=== PATIENT | male | born 1940 | race Caucasian/White ===

== ENCOUNTER 2017-07-10 12:26 | Outpatient (RCR) | payer MEDICARE, SELFPAY | END 2017-07-10 17:00 | LOC: PT 12:26 | PROVIDERS: Family Provider Family Medicine Geriatric Medicine; PCP Family Medicine Geriatric Medicine; Visit Provider Family Medicine Geriatric Medicine | DX: R69 Illness, unspecified (principal) ==

== ENCOUNTER → 2017-07-30 09:21 | Outpatient (CLI) | payer MEDICARE, SELFPAY ==
[2017-07-30 13:13] LABS: Absolute Lymphocyte Count 2.98 X10^3/ul (0.83-4.51); Absolute Neutrophil Count 3.6 X10^3/uL (2.0-7.7); Basophil# 0.02 X10^3/uL; Basophil% 0.3 % (0-1); Eosinophil# 0.14 X10^3/uL; Eosinophils% 1.9 % (0-5); Hematocrit 43.3 % (40-54); Lymphocyte # 2.98 X10^3/ul (4.0); Lymphocyte % 40.2 % (19-41); Mean Corp Hgb Conc 32.3 g/gl (32-36); Mean Corpuscular Hgb 29.9 pg (27.0-32.0); Mean Corpuscular Volume 92.3 fL (80-94); Mean Platelet Vol. 11.4 fl (6.2-12.0); Monocyte# 0.64 X10^3/uL; Monocyte% 8.6 % (0-10); Neutrophil # 3.62 X10^3/uL (2.7-7.7); Neutrophil % 48.9 % (47-70); POSITIVE COUNT NO; POSITIVE DIFFERENTIAL NO; POSITIVE MORPHOLOGY NO; Platelet Count 271 K/mm3 (150-450); RBC Distribution Width CV 13.7 % (11.6-14.6); RBC Distribution Width SD 46.1 fl (35.1-43.9); Red Blood Count 4.69 M/mm3 (4.6-6.2); White Blood Count 7.4 K/mm3 (4.4-11.0)
[2017-07-30 13:52] LABS: ALB/GLOB Ratio 0.8 RATIO (0.9-2.4); AST(SGOT) 18 U/L (15-37); Alanine Aminotransfer ALT/SGPT 34 U/L (16-61); Albumin, Serum 3.1 g/dL (3.2-5.0); Alkaline Phosphatase 86 U/L (45-117); Anion Gap 9 (5-15); BUN 15 mg/dL (7-18); BUN/Creat Ratio 15.3 RATIO (10-20); Calcium,Total 8.7 mg/dL (8.5-10.1); Chloride 108 mmol/L (98-107); Creatinine, Serum 0.98 mg/dL (0.70-1.30); EST Glomerular Filtration Rate 78 mL/min (>60); Est Glom Filt Rate - Afr Amer 95 mL/min (>60); Globulin 3.8 g/dL (2.2-4.2); Glucose 86 mg/dL (74-106); Potassium 3.8 mmol/L (3.5-5.1); Protein, Total 6.9 g/dL (6.4-8.2); Sodium Level 142 mmol/L (136-145); Thyroid Stim Hormone (TSH) 2.11 uIU/mL (0.358-3.74)
== END ==
PROVIDERS: Family Provider Family Medicine Geriatric Medicine; PCP Family Medicine Geriatric Medicine; Visit Provider Family Medicine Geriatric Medicine
DX: R53.83 Other fatigue (principal)
CPT/HCPCS: 36415; 80053; 84443; 85025

== ENCOUNTER → 2017-08-12 07:54 | Outpatient (CLI) | payer MEDICARE, SELFPAY ==
--- NOTE | 2017-08-12 14:42 | PFTCOMP ---
COMPLETE PULMONARY FUNCTION TEST INTERPRETATION Brief HPI: Patient is a 77 year old male, currently under the care of Fior Lozada, who presents to [facility] for complete pulmonary function tests secondary to diagnosis of COPD. Respiratory therapist reports good effort and reproducible results. Interpretation: Forced expiration spirometry shows a moderately-severe large airways obstructive ventilatory defect with an FEV1 of 62 % predicted. There is a significant bronchodilator response in FEV1 and FVC by ATS criteria. Spirograms are of good quality and plateau slowly, indicating slowly emptying areas of the lungs. The respiratory flow volume loop shows decreased expiratory flow rates at all lung volumes consistent with airway obstruction. Lung volumes by body plethysmography show a normal total lung capacity at 6.13 L, 100 % predicted. All other lung volumes are within normal limits. Diffusion capacity by carbon monoxide is at the lower limit of normal at 55 % predicted. The airway resistance is elevated. Compared to previous pulmonary function tests from 07/09/2016, there has been a significant change in DLCO. FVC and FEV1 are decreased, but postbronchodilator results are consistent with previous testing. Impression: Partially reversible moderately severe large airways obstructive ventilatory defect with a symmetric reduction diffusing capacity. There has been some worsening compared to previous study.
--- NOTE | 2017-08-12 14:46 | PFTCOMP_ITS ---
COMPLETE PULMONARY FUNCTION TEST INTERPRETATION Brief HPI: Patient is a 77 year old male, currently under the care of Fior Lozada, who presents to [facility] for complete pulmonary function tests secondary to diagnosis of COPD. Respiratory therapist reports good effort and reproducible results. Interpretation: Forced expiration spirometry shows a moderately-severe large airways obstructive ventilatory defect with an FEV1 of 62 % predicted. There is a significant bronchodilator response in FEV1 and FVC by ATS criteria. Spirograms are of good quality and plateau slowly, indicating slowly emptying areas of the lungs. The respiratory flow volume loop shows decreased expiratory flow rates at all lung volumes consistent with airway obstruction. Lung volumes by body plethysmography show a normal total lung capacity at 6.13 L , 100 % predicted. All other lung volumes are within normal limits. Diffusion capacity by carbon monoxide is at the lower limit of normal at 55 % predicted. The airway resistance is elevated. Compared to previous pulmonary function tests from 07/09/2016, there has been a significant change in DLCO. FVC and FEV1 are decreased, but postbronchodilator results are consistent with previous testing. Impression: Partially reversible moderately severe large airways obstructive ventilatory defect with a symmetric reduction diffusing capacity. There has been some worsening compared to previous study.
== END ==
PROVIDERS: Family Provider Family Medicine Geriatric Medicine; PCP Family Medicine Geriatric Medicine; Visit Provider Nurse Practitioner Acute Care
DX: R06.00 Dyspnea, unspecified (principal); J44.9 Chronic obstructive pulmonary disease, unspecified
CPT/HCPCS: 94060; 94726; 94729

== ENCOUNTER → 2017-08-14 08:46 | Outpatient (CLI) | payer MEDICARE, SELFPAY ==
[2017-08-14 09:16] VITALS: PULSE 70; PULSE 72; PULSE 75; PULSE 78; PULSE 81; PULSE 83; PULSE 92; O2SAT 92; O2SAT 93; O2SAT 94; O2SAT 98
--- NOTE | 2017-08-15 07:18 | WT_ITS ---
PSN 6 Minute Walk Test - 6 Minute Walk Test 6 Minute Walk Test: 6 Minute Walk Test PSN:6-Minute Walk Test Start: 08/14/17 09: 16 Freq: Status: Active Protocol: RESP.6MINW Document 08/14/17 09:16 MISHEL (Rec: 08/14/17 09:20 MISHEL [id number]) 6 Minute Walk Test Date Performed 08/14/17 Time Performed 09:00 Height 5 ft 9 in Weight: 73.482 kg Weight in Pounds 162.[address]: Renzo Fitzpatrick Assistive device used: None Pre-test Oxygen Delivery Method Room Air Pulse Ox (%) 94 Pulse Rate (60-100 beats/min) 70 1st minute Oxygen Delivery Method Room Air Pulse Ox (%) 94 Pulse Rate (60-100 beats/min) 75 2nd minute Oxygen Delivery Method Room Air Pulse Ox (%) 93 Pulse Rate (60-100 beats/min) 78 3rd minute Oxygen Delivery Method Room Air Pulse Ox (%) 93 Pulse Rate (60-100 beats/min) 81 4th minute Oxygen Delivery Method Room Air Pulse Ox (%) 92 Pulse Rate (60-100 beats/min) 83 5th minute Oxygen Delivery Method Room Air Pulse Ox (%) 93 Pulse Rate (60-100 beats/min) 92 6th minute Oxygen Delivery Method Room Air Pulse Ox (%) 92 Pulse Rate (60-100 beats/min) 92 Dyspnea Jonh Scale (0-10) 1 Exertion Jonh Scale (6-20) 11 Post-test Oxygen Delivery Method Room Air Pulse Ox (%) 98 Pulse Rate (60-100 beats/min) 72 Full Laps Walked 20 Partial Lap, Number of Tiles Walked 0 Total Distance Walked (ft) 1180 - Interpretation Interpretation: The patient was able to ambulate 1180 feet over the course of 6 minutes on room air with no assistive devices or breaks. No significant desaturation or tachycardia was noted. These findings are consistent with a normal exercise oximetry. - Recommendations Recommendations: No supplemental oxygen is indicated at this time.
== END ==
PROVIDERS: Family Provider Family Medicine Geriatric Medicine; PCP Family Medicine Geriatric Medicine; Visit Provider Nurse Practitioner Acute Care
DX: J44.9 Chronic obstructive pulmonary disease, unspecified (principal); R06.00 Dyspnea, unspecified
CPT/HCPCS: 94618

== ENCOUNTER → 2018-02-01 09:56 | Outpatient (CLI) | payer MEDICARE, SELFPAY ==
[2018-02-01 10:40] LABS: Absolute Lymphocyte Count 2.62 X10^3/ul (0.83-4.51); Absolute Neutrophil Count 3.9 X10^3/uL (2.0-7.7); Basophil# 0.02 X10^3/uL; Basophil% 0.3 % (0-1); Eosinophil# 0.11 X10^3/uL; Eosinophils% 1.5 % (0-5); Hematocrit 44.6 % (40-54); Hemoglobin 14.8 g/dl (13.0-16.5); Lymphocyte # 2.62 X10^3/ul (4.0); Lymphocyte % 35.5 % (19-41); Mean Corp Hgb Conc 33.2 g/gl (32-36); Mean Corpuscular Hgb 30.3 pg (27.0-32.0); Mean Corpuscular Volume 91.2 fL (80-94); Mean Platelet Vol. 10.2 fl (6.2-12.0); Monocyte# 0.67 X10^3/uL; Monocyte% 9.1 % (0-10); Neutrophil # 3.94 X10^3/uL (2.7-7.7); Neutrophil % 53.5 % (47-70); Platelet Count 220 K/mm3 (150-450); RBC Distribution Width CV 13.3 % (11.6-14.6); Red Blood Count 4.89 M/mm3 (4.6-6.2); White Blood Count 7.4 K/mm3 (4.4-11.0)
[2018-02-01 10:42] LABS: POSITIVE COUNT NO; POSITIVE DIFFERENTIAL NO; POSITIVE MORPHOLOGY NO
[2018-02-01 10:55] LABS: Vitamin D,25 Hydroxy 43.7 ng/mL (29.95-100.01)
[2018-02-01 11:06] LABS: ALB/GLOB Ratio 0.9 RATIO (0.9-2.4); AST(SGOT) 25 U/L (15-37); Alanine Aminotransfer ALT/SGPT 33 U/L (16-61); Albumin, Serum 3.2 g/dL (3.2-5.0); Alkaline Phosphatase 79 U/L (45-117); Anion Gap 12 (5-15); BUN 16 mg/dL (7-18); BUN/Creat Ratio 12.6 RATIO (10-20); Calcium,Total 8.7 mg/dL (8.5-10.1); Chloride 107 mmol/L (98-107); Creatinine, Serum 1.27 mg/dL (0.70-1.30); EST Glomerular Filtration Rate 58 mL/min (>60); Est Glom Filt Rate - Afr Amer 70 mL/min (>60); Globulin 3.6 g/dL (2.2-4.2); Glucose 96 mg/dL (74-106); Potassium 4.4 mmol/L (3.5-5.1); Protein, Total 6.8 g/dL (6.4-8.2); Sodium Level 143 mmol/L (136-145)
== END ==
PROVIDERS: Family Provider Family Medicine Geriatric Medicine; PCP Family Medicine Geriatric Medicine; Visit Provider Family Medicine Geriatric Medicine
DX: R53.83 Other fatigue (principal); E55.9 Vitamin D deficiency, unspecified
CPT/HCPCS: 36415; 80053; 82306; 84443; 85025

== ENCOUNTER → 2018-05-24 07:47 | Outpatient (CLI) | payer MEDICARE, SELFPAY ==
--- NOTE | 2018-05-24 07:49 | CT_ITS ---
STUDY: CT CHEST WITH CONTRAST REASON FOR EXAM: Male, 78 years old. Lung cancer follow-up history of partial lobectomy history of previous smoking. RADIATION DOSAGE (If Supplied By Facility): CTDIvol = ( 12.95 ) mGy, DLP = ( 485.73 ) mGycm TECHNIQUE: Transaxial imaging was performed following intravenous administration of 100 ml of Isovue 300 contrast material. Multiplanar coronal and sagittal images were reformatted. Individualized dose optimization techniques were used for this CT. COMPARISON: May 25, 2017, November 03, 2016 CT scan chest FINDINGS: There is emphysematous change within the right greater than left lung with accompanying hyperinflation. There is volume loss in the left chest and postoperative or postinflammatory scarring with in the left lung base which is stable since prior study. There is a focus of scarring in the medial and lateral aspect of the left lower lobe stable since prior study. There are no visualized new focal masses or consolidation. There is no demonstrated pleural abnormality. There is mild cardiac enlargement. There are coronary calcifications. There is a 1.2 x 0.8 cm AP window lymph node stable since prior study there is a minimally thickened appearance of the esophagus. There is a small hiatal hernia. There is postoperative change in the left hilum stable since prior study. Normal enhanced pulmonary arteries. There is atherosclerotic calcification of the aortic arch with tortuosity and elongation of the aortic arch and descending thoracic aorta. There are multi-level degenerative changes of the thoracic spine. There is mild hepatic steatosis. There is a minimal heterogeneity. CT/Chest WITH Contrast IMPRESSION: Stable lungs pulmonary emphysema chronic obstructive pulmonary disease scarring in the left lung base compatible post lobectomy or partial lobectomy. Hiatal hernia mild mild thick-walled appearance of the esophagus which could be related to esophagitis. Mild cardiomegaly coronary artery calcification. Electronically Signed: Divine Brito MD at 17:16 EST Tel , Service support ,
[2018-05-24 08:15] LABS: CREATININE FINGERSTICK 1.2 mg/dL (0.70-1.30); EGFR FINGERSTICK > 60.0000 mL/min (>60)
--- OUTSIDE RECORDS SUMMARY | 2018-07-17 07:25 | XMS RPT_ITS ---
:1940 Author Organization OHIP Support Name Relationship Address Phone R Unavailable Unavailable Unavailable HILLARY, ROYAL Unavailable [address] + [place] [address] R Unavailable Unavailable Unavailable HILLARY, ROYAL Unavailable [address] + [place] [address] R Unavailable Unavailable Unavailable R Unavailable Unavailable Unavailable HILLARY, ROYAL Unavailable [address] + [place] [address] R Unavailable Unavailable Unavailable HILLARY, ROYAL Unavailable [address] + [place] [address] R Unavailable Unavailable Unavailable HILLARY, ROYAL Unavailable [address] + [place] [address] R Unavailable Unavailable Unavailable HILLARY, ROYAL Unavailable [address] + [place] [address] R Unavailable Unavailable Unavailable HILLARY, ROYAL Unavailable [address] + [place] [address] R Unavailable Unavailable Unavailable HILLARY, ROYAL Unavailable [address] + [place] [address] R Unavailable Unavailable Unavailable HILLARY, ROYAL Unavailable [address] + [place] [address] R Unavailable Unavailable Unavailable HILLARY, ROYAL Unavailable [address] + [place] [address] R Unavailable Unavailable Unavailable HILLARY, ROYAL Unavailable [address] + [place] [address] R Unavailable Unavailable Unavailable HILLARY, ROYAL Unavailable [address] + [place] [address] R Unavailable Unavailable Unavailable HILLARY, ROYAL Unavailable [address] + [place] [address] R Unavailable Unavailable Unavailable HILLARY, ROYAL Unavailable [address] + [place] [address] Care Team Providers Name Role Phone Pete, Solomon Chi Attending Unavailable Pete, Solomon Chi Primary Care Unavailable Pete, Solomon Chi Primary Care Unavailable Hansel Chavarria Attending Unavailable Pete, Solomon Chi Attending Unavailable Pete, Solomon Chi Primary Care Unavailable Pete, Solomon Chi Attending Unavailable Pete, Solomon Chi Referring Unavailable Pete, Solomon Chi Primary Care Unavailable Pete, Solomon Chi Attending Unavailable Pete, Solomon Chi Primary Care Unavailable Fior Lozada Attending Unavailable Lozada, Fior Referring Unavailable Pete, Solomon Chi Primary Care Unavailable Lozada, Fior Attending Unavailable Lozada, Fior Referring Unavailable Pete, Solomon Chi Primary Care Unavailable Kierra, Fior Attending Unavailable Pete, Solomon Chi Referring Unavailable Renzo Fitzpatrick Attending Unavailable Kierra, Fior Referring Unavailable AmariRenzo ovalles Attending Unavailable Fior Lozada Referring Unavailable Pete, Solomon Chi Attending Unavailable Pete, Solomon Chi Primary Care Unavailable AmariRenzo ovalles Attending Unavailable Pete, Solomon Chi Referring Unavailable Pete, Solomon Chi Primary Care Unavailable Hansel Chavarria Attending Unavailable Hansel Chavarria Referring Unavailable Pete, Solomon Chi Primary Care Unavailable Hansel Chavarria Attending Unavailable Pete, Solomon Chi Primary Care Unavailable Hansel Chavarria Consulting Unavailable PROBLEMS PROBLEMS DATE TYPE CONDITION / CODE ATTENDING STATUS SOURCE 05/27/2018 Unknown C34.12 - Hansel Chavarria Active [facility] neoplasm of upper Hospital lobe, left Repository bronchus or lung / C34.12(ICD-10) 08/14/2017 Unknown R06.00 - Dyspnea, Lozada, Active [place] [facility] / [facility] R06.00(ICD-10) Hospital Repository 07/30/2017 Unknown R53.83 - Other Pete, Solomon Chi Active [facility] R53.83(ICD-10) Hospital Repository 01/21/2018 Unknown R69 - Illness, Pete, Solomon Chi Active [facility] R69(ICD-10) Hospital Repository PROCEDURES PROCEDURES No Procedure Records FoundRESULTS RESULTS VENOUS DUPLEX UPPER Observed: 06/06/2018 Status: F Source: [place] [facility] 9:35 AM [facility] Cardiovascular Services [address] [place] [address] Venous Duplex US, Unilateral 06/02/18 1051 MR#: [id number] Acct: [id number] Name: ALONDRA THOMAS Rep #: [id number] : 1940 78 From: Joey Beverly MD Attending Dr: Pete HERRERA,Solomon Fowler Status: REG CLI Ordering Dr: Solomon Freeman MD Date: 06/02/18 Location: [facility] Sex: M C Admitted: Reason For Study: RUE pain Right Proximal Right jugular vein is spontaneous, widely patent, phasic, with no intraluminal echogenicity noted. Right subclavian vein is spontaneous, widely patent, phasic, with no intraluminal echogenicity noted. Right Lower Arm Right radial vein is compressible. Right ulnar vein is compressible. Right Arm Right axillary vein is spontaneous, patent, phasic, competent, compressible and demonstrates augmentation. Right brachial vein is compressible. Right cephalic vein is compressible. Right basilic vein is compressible. Interpretation Summary Deep veins of the right upper extremity are patent and compressible segmentally. There is no evidence of deep vein thrombosis. The superficial veins of the right upper extremity, the basilic and cephalic veins, are patent and compressible. There is no evidence of right upper extremity superficial thrombophlebitis involving the veins imaged. Ordering Physician: Solomon Freeman Performed By: Raisa Zelaya RVT ? 06/06/18 0935 Date Joey Beverly MD CC: Solomon Freeman MD Date Dictated: 06/02/18 1051 Date Transcribed: 06/06/18 0935 Correctional Sergeant: Signed SHOULDER MIN 2 VIEWS Observed: 06/02/2018 Status: F Source: [place] 11:04 AM [facility] REPOSITORY [facility] Imaging Services [address] [place] [address] Shoulder min 2 Views MR#: [id number] Acct: [id number] Name: ALONDRA THOMAS Rep #: [id number] : 1940 78 From: River Staples MD PCP: Solomon Freeman MD, Chi Status: REG CLI Study: Shoulder min 2 Views Date of Exam: 06/02/18 Exam# [id number] Ordering Dr: Solomon Freeman MD STUDY: X-RAY - RIGHT SHOULDER REASON FOR EXAM: Male, 78 years old. Two-week history of acute pain. TECHNIQUE: 4 view(s) of the shoulder. COMPARISON: None. FINDINGS: Normal glenohumeral articulation. There is hypertrophic osteoarthrosis of the acromioclavicular joint with inferior osseous spur formation. Normal acromion. Normal humeral head and visualized proximal humerus. The soft tissue structures are unremarkable. Normal visualized pulmonary apex. RAD/Shoulder min 2 Views IMPRESSION: Osteoarthritis of the acromioclavicular joint. Electronically Signed: River Staples MD at 12:00 EST Tel [phone], Service support , CC: Solomon Freeman MD Correctional Sergeant: Signed ONCOLOGY VISIT REPORT Observed: 05/27/2018 Status: F Source: [place] 2:03 PM [facility] REPOSITORY [facility] [address] [place] [address] OFFICE VISIT Date of Service: 05/27/18 1354 MR#: [id number] Acct: [id number] Name: ALONDRA THOMAS Rep #: [id number] : 1940 From: Hansel Chavarria MD Age/Sex: 78/M Location: [facility] Status: Signed Subjective - Date of Service Date of Service:: 05/27/18 - Chief Complaint F/u for L lung cancer. - History of Present Illness Mr. Thomas is a very pleasant 78-year-old gentleman with a past medical history for BPH and hypothyroidism, who underwent a routine low-dose CT for lung cancer screening per Dr. Freeman in March when he was found to have a spiculated left-sided lung lesion which was ultimately resected by Dr. Monterroso in [place] in April 122014. The patient was initially evaluated by Dr. Tamayo on 05/04/2015 for left-sided stage IA non-small cell lung cancer status post PRINCE resection and placed on active surveillance. CT scans every 6 months have not indicated any evidence for acute abnormalities or recurrence. He is on observation, comes for follow up after CT chest. - Past Medical/Social History Past Medical History Past Medical History: COPD,Thyroid disease Other Past Medical History: Lumbar spinal stenosis Cancer: Lung cancer Past Surgical History Surgical: Carpal tunnel,Hemorrhoidectomy Other Surgical History: L shoulder L lung upper lobectomy Family History Paternal Past Medical History: Unknown Maternal Past Medical History: Unknown Social History Social History: No changes Smoking Status Former smoker Review of Systems Constitutional:: Denies: Fever, Sweats, Weight loss, Appetite change, Chills Cardiovascular:: Denies: Chest pain, Palpitations, Dyspnea on exertion, Orthopnea, PND, Shortness of breath Respiratory: Denies: Cough, Hemoptysis, Shortness of Breath, Wheezing Gastrointestinal:: Denies: Abdominal pain, Nausea, Vomiting, Diarrhea, Constipation, Hematochezia Genitourinary: Denies: Dysuria, Hematuria, 15, Flank pain Musculoskeletal:: Denies: Back pain, Myalgia, Arthralgia Skin: Denies: Rash, Skin Changes, Wounds Neurological:: Denies: Headache, Dizziness, Visual changes, Tinnitus, Hearing loss Psychiatric: Denies: Anxiety, Depression, Homicidal Ideations, Suicidal Ideations Vital Signs Height 5 ft 8.1 in Weight: 76.657 kg Weight in Pounds 169.0 lbs Pulse Ox 95 - Physical Exam General: Alert, Oriented x3, No apparent distress HEENT: Atraumatic, PERRLA, EOMI, Normocephalic Oropharynx:: Dry mucosa Neck:: Supple, Trachea midline. Negative for: JVD, bilateral Cardiac:: Regular rate, Regular rhythm, Normal S1, Normal S2. Negative for: Murmur Lungs: Clear to auscultation, Excusion symmetrical, - - L thoracotomy scar.. Negative for: Rhonchi, Wheezes Abdomen:: Bowel sounds x 4, Soft, Non-tender, Non-distended. Negative for: Hepatosplenomegaly Extremities:: Negative for: Cyanosis, Edema Neurological: Neuro grossly intact Skin:: Negative for: Lesions, Rash, Petechiae, Ecchymosis Psychiatric:: Appropriate affect, Euthymic Lymphatics:: Negative for: Cervical lymphadenopathy, Supraclavicular lymphadenopathy, Axillary lymphadenopathy Laboratory Data: Laboratory Tests WBC 8.1 (4.4-11.0) K/mm3 RBC 4.62 (4.6-6.2) M/mm3 Hgb 14.4 (13.0-16.5) g/dl Diagnostic Data: 05/24/[address]/Chest WITH Contrast IMPRESSION: Stable lungs pulmonary emphysema chronic obstructive pulmonary disease scarring in the left lung base compatible post lobectomy or partial lobectomy. Hiatal hernia mild mild thick-walled appearance of the esophagus which could be related to esophagitis. Mild cardiomegaly coronary artery calcification. Electronically Signed: Divine Brito MD at 17:16 EST Assessment and Plan Left lung non-small cell lung cancer, adenosquamous type, stage IA. No evidence of disease clinically. Thickened lower esophageal wall. Plan is to continue observation for lung cancer. Refer to Dr. Neves for thickened lower esophageal wall. RTC [address] chest. Medications: Prescriptions This Visit Medication Instructions Recorded Multivit-Mins/Iron/Folic/Lycop 1 tab PO DAILY 09/17/16 [Centrum Men's Tablet] Tamsulosin HCl [Flomax] 0.4 mg PO DAILY 09/17/16 Primary Care Provider: Solomon Freeman Referring Provider: - Problem List (1) History of lung cancer in adulthood Status: Chronic (2) Abnormal CT of the chest Status: Acute 05/27/18 1403 <Electronically signed by Hansel Chavarria MD> Date Hansel Chavarria MD Cosigner Signature: Date (if applicable) CC: Chad Neves CBC W/DIFF, AUTOMATED Collected: 05/27/2018 Status: F Source: [place] 1:10 PM [facility] REPOSITORY Order Comment: Reason for Laboratory Test . TYPE CODE TESTS RESULT OUT OF RANGE REFERENCE UNITS LAB L100.1000 4.4-11.0 K/mm3 Normal WBC 8.1 LAB L100.1200 4.6-6.2 M/mm3 Normal RBC 4.62 LAB L100.1300 13.0-16.5 g/dl Normal HGB 14.4 LAB L100.1400 40-54 % Normal HCT 42.5 LAB L100.1500 80-94 fL Normal MCV 92.0 LAB L100.1600 27.0-32.0 pg Normal MCH 31.2 LAB L100.1700 32-36 g/gl Normal MCHC 33.9 LAB L100.1810 11.6-14.6 % Normal RDW CV 12.9 LAB L100.1820 35.1-43.9 fl Normal RDW SD 42.9 LAB L100.1900 150-450 K/mm3 Normal PLT 234 LAB L100.2000 6.2-12.0 fl Normal MPV 9.8 LAB L100.2100 47-70 % Normal NEUT% 52.3 LAB L100.2200 19-41 % Normal LY% 36.0 LAB L100.2300 0-10 % Normal MONO% 9.0 LAB L100.2400 0-5 % Normal EO% 2.1 LAB L100.2500 0-1 % Normal BASO% 0.5 LAB L100.2550 0.0-0.9 % Normal IM GRAN % 0.100 Result Comment: IG% - Immature Granulocytes (promyelocytes, myelocytes and metamyelocytes) > 1% indicates that a LEFT SHIFT is Present. LAB L100.2620 2.0-7.7 X10 3/uL Normal Absolute Neut 4.3 LAB L100.2720 0.83-4.51 X10 3/ul Normal Absolute Lymph 2.92 Performed By: #### L100.0100 #### [facility] [address], [address] COMPREHENSIVE METABOLIC Collected: 05/27/2018 Status: F Source: [place] [facility] 1:10 PM [facility] REPOSITORY Order Comment: Reason for Laboratory Test . TYPE CODE TESTS RESULT OUT OF RANGE REFERENCE UNITS LAB L501.0100 74-106 mg/dL High GLU 109 Result Comment: Fasting Glucose result from 100 to 125 mg/dL suggests IMPAIRED HOMEOSTASIS per A.D.A. criteria. Please note revised GLUCOSE reference range effective 2017. LAB L501.1000 7-18 mg/dL Normal BUN 18 LAB L501.1100 0.70-1.30 mg/dL Normal CREAT,SERUM 1.06 Result Comment: The validity of the calculated GFR AND GFRAA in patients over 70 years has not been determined. Clinical correlation is essential. LAB L501.1110 >60 mL/min Normal EST GFR 72 Result Comment: Non- GFR Calc LAB L501.1115 >60 mL/min Normal EST GFR - AA 87 Result Comment: GFR Calc LAB L501.1255 ml/min Normal Estimated CRCL 54.67 LAB L501.1300 10-20 RATIO Normal BUN/CRE 17.0 LAB L501.1500 6.4-8. g/dL Normal 2 T PROT 6.8 LAB L501.1800 3.2-5. g/dL Normal 0 ALB 3.4 LAB L501.1950 2.2-4. g/dL Normal 2 GLOB 3.4 LAB L501.2000 0.9-2. RATIO Normal 4 A/G 1.0 LAB L501.2200 8.5-10 mg/dL Normal .1 CA 8.7 LAB L501.4100 15-37 U/L Normal AST 17 LAB L501.4305 45-117 U/L Normal ALK P 84 LAB L501.4405 16-61 U/L Normal ALT 26 LAB L501.4600 0.20-1 mg/dL Normal .00 T BILI 0.40 LAB L501.5300 136-14 mmol/L Normal 5 NA 140 LAB L501.5600 3.5-5. mmol/L Normal 1 K 4.0 LAB L501.5900 98-107 mmol/L Normal CL 107 LAB L501.6100 21.0-3 mmol/L Normal 2.0 CO2 28.0 LAB L501.6200 5-15 Normal GAP 5 Performed By: #### L500.4050 #### [facility] [address] [place], [address] CREATININE FINGERSTICK Collected: 05/24/2018 Status: F Source: [place] 8:06 AM [facility] REPOSITORY TYPE CODE TESTS RESULT OUT OF RANGE REFERENCE UNITS LAB L9100.0210 0.70-1.30 mg/dL Normal CREATININE WB 1.2 LAB L9100.0220 >60 mL/min EGFR WB Normal > 60.0000 Performed By: #### L9100.0200 #### [facility] Point of Care [address] [place] [address] CHEST WITH CONTRAST Observed: 05/24/2018 Status: F Source: [place] 7:49 AM [facility] REPOSITORY [facility] Imaging Services [address] [place] [address] Chest WITH Contrast MR#: [id number] Acct: [id number] Name: ALONDRA THOMAS Rep #: [id number] : 1940 M 78 From: Divine Brito MD PCP: Pete HERRERA,[facility] Status: REG CLI Study: Chest WITH Contrast Date of Exam: 05/24/18 Exam# [id number] Ordering Dr: Hansel Chavarria MD STUDY: CT CHEST WITH CONTRAST REASON FOR EXAM: Male, 78 years old. Lung cancer follow- up history of partial lobectomy history of previous smoking. RADIATION DOSAGE (If Supplied By Facility): CTDIvol = ( 12.95 ) mGy, DLP = ( 485.73 ) mGycm TECHNIQUE: Transaxial imaging was performed following intravenous administration of 100 ml of Isovue 300 contrast material. Multiplanar coronal and sagittal images were reformatted. Individualized dose optimization techniques were used for this CT. COMPARISON: May 25, 2017, November 03, 2016 CT scan chest FINDINGS: There is emphysematous change within the right greater than left lung with accompanying hyperinflation. There is volume loss in the left chest and postoperative or postinflammatory scarring with in the left lung base which is stable since prior study. There is a focus of scarring in the medial and lateral aspect of the left lower lobe stable since prior study. There are no visualized new focal masses or consolidation. There is no demonstrated pleural abnormality. There is mild cardiac enlargement. There are coronary calcifications. There is a 1.2 x 0.8 cm AP window lymph node stable since prior study there is a minimally thickened appearance of the esophagus. There is a small hiatal hernia. There is postoperative change in the left hilum stable since prior study. Normal enhanced pulmonary arteries. There is atherosclerotic calcification of the aortic arch with tortuosity and elongation of the aortic arch and descending thoracic aorta. There are multi-level degenerative changes of the thoracic spine. There is mild hepatic steatosis. There is a minimal heterogeneity. CT/Chest WITH Contrast IMPRESSION: Stable lungs pulmonary emphysema chronic obstructive pulmonary disease scarring in the left lung base compatible post lobectomy or partial lobectomy. Hiatal hernia mild mild thick-walled appearance of the esophagus which could be related to esophagitis. Mild cardiomegaly coronary artery calcification. Electronically Signed: Dviine Brito MD at 17:16 EST Tel , Service support , CC: Hansel Chavarria MD; Solomon Freeman MD Correctional Sergeant: Signed PULMONARY VISIT REPORT Observed: 03/02/2018 Status: F Source: [place] 9:41 AM [facility] REPOSITORY [facility] [address] [place] [address] OFFICE VISIT Date of Service: 03/02/18 MR#: [id number] Acct: [id number] Name: ALONDRA THOMAS Rep #: [id number] : 1940 Provider: Renzo Fitzpatrick MD Age/Sex: 77/M [facility] [facility] Status: Signed Assessment AND Plan Problems 1. 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 2. Adenocarcinoma of left lung, stage 1 C34.92 3. History of lobectomy of lung Z90.2 Plan Patient overall appears to be relatively stable on as needed albuterol therapy. Did discuss with patient about having an annual pulmonary function test, but patient states that he feels this is been stable for several years and does not wish to complete any PFT at this time. Signs and symptoms of exacerbation and sick policy were reviewed in detail. Patient voiced understanding. Will defer to oncology on timing of screening CT scans. Continue with current therapy. Patient refusing testing. Medications New: Plan Detail Follow Up 6 Months (CSM) HPI 6 M FU: Chief Complaint: Shortness of breath on exertion Details: Patient is a 77-year-old male, currently under care of Dr. Freeman, who presents for evaluation secondary to shortness of breath on exertion. Since last visit, patient denies any ER visits, hospitalizations or prednisone burst. Patient was placed on Zantac and a nasal spray by ENT, but reports no significant change at this time. Patient overall feels he is doing well from a respiratory standpoint. Patient denies any change in cough, shortness of breath, fever, chills, nausea or vomiting. No unintentional weight loss has been reported. Patient is no longer smoking. Patient reports that he continues to follow with [facility]. Patient anticipates a repeat CT scan in April or May of this year. Patient is currently on 1 year follow-up visit. Intake Vital Signs03/02/18 Height 5 ft 9 in 03/02/18 Weight: 73.482 kg Intake Visit Reasons: [address] Technologist Required: No Accompanied by: Self Is patient in pain?: No Allergies No Known Allergies Allergy (Verified 03/02/18 06:51) Medications Levothyroxine [Synthroid] 112 mcg PO DAILY 03/01/15 [History Confirmed 03/02/18] Multivits,Ca,Min/Iron/FA/Lycop [Centrum Men's Tablet] 1 tab PO DAILY 03/29/17 [History Confirmed 03/02/18] Tamsulosin HCl [Flomax] 0.4 mg PO DAILY 09/17/16 [History Confirmed 03/02/18] albuterol sulfate HFA 90 mcg/actuation aerosol inhaler 2 puff INHALATION Q4H PRN g 08/21/17 [History Confirmed 03/02/18] ranitidine 150 mg tablet 150 mg PO BID tab 03/02/18 [History Confirmed 03/02/18] PFSH Medical History Hypothyroidism (Chronic) Lumbar back pain (Chronic) DDD (degenerative disc disease), lumbar (Chronic) Cancer of upper lobe of left lung (Chronic) Stage 2 moderate COPD by GOLD classification (Chronic) PND (post-nasal drip) (Chronic) Adenocarcinoma of lung, stage 1 (Resolved) COPD (chronic obstructive pulmonary disease) (Acute) Carpal tunnel syndrome (Acute) Lumbar spinal stenosis (Acute) Thyroid disease (Acute) left shoulder surgery (Acute) Surgical History History of lobectomy of lung (Resolved) History of shoulder surgery (Resolved) History of carpal tunnel release of both wrists (Resolved) S/P lobectomy of lung (Resolved) H/O hemorrhoidectomy (Acute) Social History Smoking Status: Former smoker second hand exposure: No alcohol intake: current alcohol intake frequency: holidays/special occasions only substance use type: does not use caffeine: No what type of physical activity do you participate in: walking frequency: daily Review of Systems Const CONSTITUTIONAL: Negative anorexia, body ache, chills, daytime sleepiness, fever(s), night sweats, oral thrush, stops breathing during sleep, weight loss, sleeping in chair, fatigue, weight loss, weight gain, frequent colds, seasonal allergies, other, orthopnea or headache(s) EETM Ear Nose Throat Mouth: Positive hearing normal and nasal discharge; negative hard of hearing, hoarseness, dry mouth in morning, change in vision, itchy eyes, eye pain, swallowing Difficulty, ear pain, nose bleed, headache(s), mouth pain, nasal congestion, post nasal drip, sinus pain, sinus pressure, sore throat or other Cardio Cardiovascular: Negative chest pain, chest pain at rest, chest pain with activity, irregular heart rhythm, edema, shortness of breath when lying down, palpitations, murmur or other Resp Respiratory: Positive as per HPI, shortness of breath shortness of breath: Positive with activity, cough cough: Positive productive color: Positive white and non-productive and inhalers; negative pain with cough, wheezing, chest congestion, chest tightness, pain on inspiration, increase use of rescue inhalers, snoring, apnea or other Gastro Gastrointestional: Negative bloody stools, change in appetite, difficulty swallowing, reflux, hematemesis, melena stool, loose stool, constipation or other Genitourinary: Negative blood in urine, nocturia, pain with urination or other Musc Musculoskeletal: Negative body pain, back pain, neck pain or other Skin/Breast Skin/Breast: Negative dry skin, itching, rash, unusual bruising, breast lump or other Neuro Neurological: Negative restless legs, confusion, weakness or other Psych Psychocological: Negative abnormal sleep pattern, anxiety, thoughts of hurting self/others, hopelessness or other Lymph Lymphatic: Negative easy bleeding, easy bruising, swollen lymph nodes or other Exam Const Constitutional: Positive conversant, cooperative, in no acute respiratory distress, healthy appearing, well developed, well nourished and good hygiene; negative wearing supplemental oxygen, appears older than stated age, frail appearing or smells of smoke Head Head: Positive normocephalic and atraumatic; negative cyanosis of lips/distal nose, frontal sinus tenderness or maxillary sinus tenderness Eyes Eye: Positive clear conjunctiva; negative nystagmus, scleral abnormality or cataract present Ears Ear: Positive hearing normal and external ears normal; negative hard of hearing Nose Nose: Positive external nose normal, septum normal and no nasal discharge; negative epistaxis or nasal polyp Mouth Mouth: Positive oral mucosae normal, no lesions and posterior oropharynx is adequate; negative post nasal drip, malodorous breath or oral thrush present Mallampati Score: II: Mallampati Score Neck Neck: Positive normal visual inspection, full ROM and trachea midline; negative lymphadenopathy or JVD Chest Wall Chest: Positive symmetric chest movement and increased A/P diameter; negative crepitus or tenderness Resp lung sounds: Positive clear to auscultation, prolonged expiratory time and diminished; negative wheezes, rhonchi, rales, use of accessory muscles, wheeze present on forced exhalation or dullness to percussion Cardio Cardiac: Positive regular rate, regular rhythm, S1 normal and S2 normal; negative murmur, rub or gallop GI GI: Positive normal to inspection and normal bowel sounds; negative distended, ascites or epigastric tenderness Genitourinary: Positive deferred Musc Musculoskeletal: Positive steady gait; negative using an assistive device for ambulation, kyphosis or scoliosis Skin Pulmonary Skin Exam: Positive intact; negative rash, lesion, ulcers, erythema or dermal atrophy Pulses Pulse: Yes radial pulses present Extremities Extremities: Yes capillary refill normal, No clubbing, No cyanosis, No edema, No stasis dermatitis Neuro Neurologic: Yes conversant, Yes no focal neuro deficits, Yes normal concentration, Yes understands questions, Yes cooperative, Yes normal cognition, Yes normal coordination Lymph Lymphatic: No lymphadenopathy Psych Appearance: Positive grossly normal Mental Status: Positive mental status grossly normal Mood: Positive congruent mood Affect: Positive normal affect Coding Level of Care Code Off vis,est,level 3 Diagnoses 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, 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0-32.0 pg Normal MCH 30.3 LAB L100.1700 32-36 g/gl Normal MCHC 33.2 LAB L100.1810 11.6-14.6 % Normal RDW CV 13.3 LAB L100.1820 35.1-43.9 fl High RDW SD 44.0 LAB L100.1900 150-450 K/mm3 Normal PLT 220 LAB L100.2000 6.2-12.0 fl Normal MPV 10.2 LAB L100.2100 47-70 % Normal NEUT% 53.5 LAB L100.2200 19-41 % Normal LY% 35.5 LAB L100.2300 0-10 % Normal MONO% 9.1 LAB L100.2400 0-5 % Normal EO% 1.5 LAB L100.2500 0-1 % Normal BASO% 0.3 LAB L100.2550 0.0-0.9 % Normal IM GRAN % 0.100 Result Comment: IG% - Immature Granulocytes (promyelocytes, myelocytes and metamyelocytes) > 1% indicates that a LEFT SHIFT is Present. LAB L100.2620 2.0-7.7 X10 3/uL Normal Absolute Neut 3.9 LAB L100.2720 0.83-4.51 X10 3/ul Normal Absolute Lymph 2.62 Performed By: #### L100.0100 #### [facility] Laboratory [facility] [place], [place], [id number] VITAMIN D,25 HYDROXY Collected: 02/01/2018 Status: F Source: [place] 9:57 AM [facility] REPOSITORY TYPE CODE TESTS RESULT OUT OF RANGE REFERENCE UNITS LAB L506.1000 29.95-100.01 ng/mL Normal Vitamin D 43.7 25-OH Result Comment: Vitamin D 25(OH) Status Range Deficiency <20 ng/mL (50nmol/L) Insuffciency 20 - 30 ng/mL (50 - 75 nmol/L) Sufficiency 30 - 100 ng/mL (75 - 250 nmol/L) Toxicity >100 ng/mL (>250 nmol/L) Performed By: #### L506.1000 #### [facility] Laboratory [address] [place], [place], [id number] COMPREHENSIVE METABOLIC Collected: 02/01/2018 Status: F Source: [place] [facility] 9:57 AM [facility] REPOSITORY TYPE CODE TESTS RESULT OUT OF RANGE REFERENCE UNITS LAB L501.0100 74-106 mg/dL Normal GLU 96 Result Comment: Please note revised GLUCOSE reference range effective 2017. LAB L501.1000 7-18 mg/dL Normal BUN 16 LAB L501.1100 0.70-1.30 mg/dL Normal CREAT,SERUM 1.27 Result Comment: The validity of the calculated GFR AND GFRAA in patients over 70 years has not been determined. Clinical correlation is essential. LAB L501.1110 >60 mL/min Low EST GFR 58 Result Comment: Non- GFR Calc LAB L501.1115 >60 mL/min Normal EST GFR - AA 70 Result Comment: GFR Calc LAB L501.1300 10-20 RATIO Normal BUN/CRE 12.6 LAB L501.1500 6.4-8.2 g/dL T Normal PROT 6.8 LAB L501.1800 3.2-5.0 g/dL Normal ALB 3.2 LAB L501.1950 2.2-4.2 g/dL Normal GLOB 3.6 LAB L501.2000 0.9-2.4 RATIO Normal A/G 0.9 LAB L501.2200 8.5-10.1 mg/dL CA Normal 8.7 LAB L501.4100 15-37 U/L Normal AST 25 LAB L501.4305 45-117 U/L Normal ALK P 79 LAB L501.4405 16-61 U/L Normal ALT 33 LAB L501.4600 0.20-1.00 mg/dL T Normal BILI 0.20 LAB L501.5300 136-145 mmol/L NA Normal 143 LAB L501.5600 3.5-5.1 mmol/L K Normal 4.4 LAB L501.5900 98-107 mmol/L CL Normal 107 LAB L501.6100 21.0-32.0 mmol/L Normal CO2 24.0 LAB L501.6200 5-15 Normal GAP 12 Performed By: #### L500.4050, L501.9520 #### [facility] Laboratory [address], [address] THYROID STIM HORMONE Collected: 02/01/2018 Status: F Source: [place] (TSH) 9:57 AM [facility] REPOSITORY TYPE CODE TESTS RESULT OUT OF RANGE REFERENCE UNITS LAB L501.9520 0.358-3.74 uIU/mL Normal TSH 2.80 Performed By: #### L500.4050, L501.9520 #### [facility] Laboratory [address] [place], [address] PULMONARY VISIT REPORT Observed: 08/21/2017 Status: F Source: [place] 4:05 PM [facility] REPOSITORY [facility] [address] [place], [place] [address] OFFICE VISIT Date of Service: 08/21/17 MR#: [id number] Acct: [id number] Name: ALONDRA THOMAS Rep #: [id number] : 1940 Provider: Fior Lozada Age/Sex: 77/M [place] [facility] [place] Status: Signed Assessment AND Plan 1. 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 No need to step up therapy at this time. Did discuss the fact that the patient does have her response to bronchodilators and may benefit from the addition of an inhaled corticosteroid at some point if his shortness of breath worsens. He does not have air-trapping or hyperinflation on his current PFTs, we will hold off on adding any inhalers at this point. Patient has been advised to contact the office if he develops any new symptoms or worsening shortness of breath. Otherwise, follow-up with Dr. Fitzpatrick in 6 months. 2. PND (post-nasal drip) R09.82 Status Chronic Plan Encourage the patient that he can purchase Flonase [id number] to control his postnasal drip. Follow-up with Dr. Fitzpatrick in 6 months. 3. 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 Last CT of the chest was done 3 months ago. He follows with [facility]. Plan Detail Follow Up 6 Months (BW) HPI 6 M FU: Chief Complaint: shortness of breath on elevation or soft surface such as grass or carpet HPI Comments Details: This is a 77 year old very pleasant m, currently under the care of Solomon Freeman, here today to review test results, and follow-up on his moderate COPD. I personally reviewed the tests/images/tracings which showed: Complete Pulmonary Function test were preformed on August 12, 2017, and showed FVC of 95 % of predicted, FEV1 of 62 % of predicted, FEV1/FVC ratio of 47 %, TLC of 100 % of predicted, RV of 98 % of predicted, DLCO 55% of predicted. The test was interpreted to be consistent with partially reversible moderately severe obstructive ventilatory defect, with a significant response to bronchodilators and a symmetric reduction in diffusing capacity. Pulmonary stress test was completed on August 14, 2017, and did not show a drop in saturation below 89%, which suggested a no current requirement of supplemental oxygen on ambulation at this time. He was able to ambulate 1180 feet during 6 minutes. He has not been seen in the ED urgent care for any breathing problems since his last office visit. He has not required antibiotics or prednisone for any respiratory infections. Per his own words he has been healthy this winter. He denies any shortness of breath at rest or during conversation, does report very minimal shortness of breath on exertion. He reports that his shortness of breath on exertion is more prevalent if he is walking on a soft surface such as grass or carpet. If he is walking on a hard surface he is able to walk for several minutes. He said he is able to complete the 6 minute walk with ease, he walks this far on most days. He does have a rescue inhaler but rarely uses it. When he uses it he did not find it very helpful. He denies any cough, wheezing or chest tightness. He denies any chest pain or palpitations. He denies any sputum production or hemoptysis. See complete review of systems. Intake Vital Signs08/21/17 Height 5 ft 9 in 08/21/17 Weight: 162 lb Intake Visit Reasons: 6 M FU Accompanied by: Self Allergies No Known Allergies Allergy (Verified 08/21/17 10:04) Medications Levothyroxine [Synthroid] 112 mcg PO DAILY 03/01/15 [History Confirmed 08/21/17] Multivits,Ca,Min/Iron/FA/Lycop [Centrum Men's Tablet] 1 tab PO DAILY 09/17/16 [History Confirmed 08/21/17] Tamsulosin HCl [Flomax] 0.4 mg PO DAILY 09/17/16 [History Confirmed 08/21/17] albuterol sulfate HFA 90 mcg/actuation aerosol inhaler 2 puff INHALATION Q4H PRN g 08/21/17 [History Confirmed 08/21/17] PFSH Medical History Hypothyroidism (Chronic) Lumbar back pain (Chronic) DDD (degenerative disc disease), lumbar (Chronic) Cancer of upper lobe of left lung (Chronic) Stage 2 moderate COPD by GOLD classification (Chronic) PND (post-nasal drip) (Chronic) Adenocarcinoma of lung, stage 1 (Resolved) COPD (chronic obstructive pulmonary disease) (Acute) Carpal tunnel syndrome (Acute) Lumbar spinal stenosis (Acute) Thyroid disease (Acute) left shoulder surgery (Acute) Surgical History History of lobectomy of lung (Resolved) History of shoulder surgery (Resolved) History of carpal tunnel release of both wrists (Resolved) S/P lobectomy of lung (Resolved) H/O hemorrhoidectomy (Acute) Social History Smoking Status: Former smoker second hand exposure: No alcohol intake: current alcohol intake frequency: holidays/special occasions only substance use type: does not use caffeine: No what type of physical activity do you participate in: walking frequency: daily Review of Systems Const CONSTITUTIONAL: Negative anorexia, body ache, chills, daytime sleepiness, fever(s), night sweats, oral thrush, stops breathing during sleep, weight loss, sleeping in chair, fatigue, weight loss, weight gain, frequent colds, seasonal allergies, other, headache(s) or orthopnea EETM Ear Nose Throat Mouth: Positive hard of hearing, itchy eyes and nasal discharge; negative hearing normal, hoarseness, dry mouth in morning, change in vision, eye pain, swallowing Difficulty, ear pain, nose bleed, headache(s), mouth pain, nasal congestion, post nasal drip, sinus pain, sinus pressure, sore throat or other Cardio Cardiovascular: Negative chest pain, chest pain at rest, chest pain with activity, irregular heart rhythm, edema, shortness of breath when lying down, palpitations, murmur or other Resp Respiratory: Positive as per HPI and shortness of breath; negative pain with cough, wheezing, chest congestion, cough, chest tightness, pain on inspiration, inhalers, increase use of rescue inhalers, snoring, apnea or other Gastro Gastrointestional: Negative bloody stools, change in appetite, difficulty swallowing, reflux, hematemesis, melena stool, loose stool, constipation or other Genitourinary: Negative blood in urine, nocturia, pain with urination or other Musc Musculoskeletal: Positive back pain; negative body pain, neck pain or other Skin/Breast Skin/Breast: Negative dry skin, itching, rash, unusual bruising, breast lump or other Neuro Neurological: Negative restless legs, confusion, weakness or other Psych Psychocological: Negative abnormal sleep pattern, anxiety, thoughts of hurting self/others, hopelessness or other Lymph Lymphatic: Negative easy bleeding, easy bruising, swollen lymph nodes or other Exam Const Constitutional: Positive conversant, cooperative, in no acute respiratory distress, healthy appearing, well developed, well nourished and good hygiene Head Head: Positive normocephalic and atraumatic; negative cyanosis of lips/distal nose Eyes Eye: Positive clear conjunctiva and nystagmus; negative scleral abnormality Ears Ear: Positive hard of hearing and external ears normal; negative hearing normal Nose Nose: Positive external nose normal and no nasal discharge; negative epistaxis Mouth Mouth: Positive oral mucosae normal, no lesions, good dentition and posterior oropharynx is adequate; negative post nasal drip, malodorous breath or oral thrush present Mallampati Score: I: Mallampati Score Neck Neck: Positive normal visual inspection, full ROM and trachea midline; negative lymphadenopathy, JVD or tender Chest Wall Chest: Positive normal inspection of the chest and symmetric chest movement; negative increased A/P diameter Resp lung sounds: Positive wheeze present on forced exhalation, clear to auscultation, good air exchange, normal expiratory time and normal respiratory effort; negative rhonchi, rales or dullness to percussion Cardio Cardiac: Positive regular rate, regular rhythm, S1 normal and S2 normal; negative murmur GI GI: Positive normal to inspection and normal bowel sounds; negative distended Genitourinary: Positive deferred Musc Musculoskeletal: Positive steady gait and ROM normal; negative kyphosis or scoliosis Skin Pulmonary Skin Exam: Positive intact; negative rash, lesion, ulcers, erythema, scaly, dermal atrophy or Eczema Pulses Pulse: Yes pulses normal x4 extremities Extremities Extremities: No edema, Yes capillary refill normal, No clubbing, No cyanosis, No stasis dermatitis Neuro Neurologic: Yes conversant, Yes no focal neuro deficits, Yes cooperative, Yes normal cognition, Yes normal coordination, Yes normal concentration, Yes understands questions, No tremor Lymph Lymphatic: No lymphadenopathy, No tenderness, No cervical adenopathy, No axillary adenopathy Psych Appearance: Positive grossly normal, eye contact and well kempt Mental Status: Positive mental status grossly normal Mood: Positive congruent mood Affect: Positive normal affect Coding Level of Care Code Off vis,est,level 4 Diagnoses 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 PND (post-nasal drip) R09.82 Cancer of upper lobe of left lung C34.12 08/21/17 1605 <Electronically signed by Fior LESLIEC> Date Fior HURST Cosigner Signature: Date (if applicable) CC: Solomon Freeman MD 6 MINUTE WALK TEST Observed: 08/15/2017 Status: F Source: [place] 7:18 AM [facility] REPOSITORY [facility] Pulmonary Services/Neurology [address] [place] [address] MR#: [id number] Acct: [id number] Name: ALONDRA THOMAS Rep #: [id number] : 1940 77 From: Renzo Fitzpatrick MD Referring Dr: Fior Lozada NP Date: Ordering Dr: Martin: Buzz Lynn Location: PSN PSN 6 Minute Walk Test - 6 Minute Walk Test 6 Minute Walk Test: 6 Minute Walk Test PSN:6-Minute Walk Test Start: 08/14/17 09:16 Freq: Status: Active Protocol: RESP.6MINW Document 08/14/17 09:16 [place] (Rec: 08/14/17 09:20 MISHEL [id number]) 6 Minute Walk Test Date Performed 08/14/17 Time Performed 09:00 Height 5 ft 9 in Weight: 73.482 kg Weight in Pounds 162.[address]: Renzo Fitzpatrick Assistive device used: None Pre-test Oxygen Delivery Method Room Air Pulse Ox (%) 94 Pulse Rate (60-100 beats/min) 70 1st minute Oxygen Delivery Method Room Air Pulse Ox (%) 94 Pulse Rate (60-100 beats/min) 75 2nd minute Oxygen Delivery Method Room Air Pulse Ox (%) 93 Pulse Rate (60-100 beats/min) 78 3rd minute Oxygen Delivery Method Room Air Pulse Ox (%) 93 Pulse Rate (60-100 beats/min) 81 4th minute Oxygen Delivery Method Room Air Pulse Ox (%) 92 Pulse Rate (60-100 beats/min) 83 5th minute Oxygen Delivery Method Room Air Pulse Ox (%) 93 Pulse Rate (60-100 beats/min) 92 6th minute Oxygen Delivery Method Room Air Pulse Ox (%) 92 Pulse Rate (60-100 beats/min) 92 Dyspnea Jonh Scale (0-10) 1 Exertion Jonh Scale (6-20) 11 Post-test Oxygen Delivery Method Room Air Pulse Ox (%) 98 Pulse Rate (60-100 beats/min) 72 Full Laps Walked 20 Partial Lap, Number of Tiles Walked 0 Total Distance Walked (ft) 1180 - Interpretation Interpretation: The patient was able to ambulate 1180 feet over the course of 6 minutes on room air with no assistive devices or breaks. No significant desaturation or tachycardia was noted. These findings are consistent with a normal exercise oximetry. - Recommendations Recommendations: No supplemental oxygen is indicated at this time. 08/15/17717 <Electronically signed by Renzo Fitzpatrick MD> Date Renzo Fitzpatrick MD CC: Date Dictated: 08/15/17716 Date Transcribed: 08/15/17716 Correctional Sergeant: Renzo Fitzpatrick Signed PULMONARY FUNCTION Observed: 08/12/2017 Status: F Source: [place] REPORT COMP 2:46 PM [facility] REPOSITORY [facility] Pulmonary Services/Neurology [address] [place] [address] MR#: [id number] Acct: [id number] Name: ALONDRA THOMAS Rep #: [id number] : 1940 77 From: Renzo Fitzpatrick MD Referring Dr: Fior Lozada NP Status: REG CLI Ordering Dr: Date: Location: [facility] Sex: M C COMPLETE PULMONARY FUNCTION TEST INTERPRETATION Brief HPI: Patient is a 77 year old male, currently under the care of Fior Lozada, who presents to [facility] for complete pulmonary function tests secondary to diagnosis of COPD. Respiratory therapist reports good effort and reproducible results. Interpretation: Forced expiration spirometry shows a moderately-severe large airways obstructive ventilatory defect with an FEV1 of 62 % predicted. There is a significant bronchodilator response in FEV1 and FVC by ATS criteria. Spirograms are of good quality and plateau slowly, indicating slowly emptying areas of the lungs. The respiratory flow volume loop shows decreased expiratory flow rates at all lung volumes consistent with airway obstruction. Lung volumes by body plethysmography show a normal total lung capacity at 6.13 L, 100 % predicted. All other lung volumes are within normal limits. Diffusion capacity by carbon monoxide is at the lower limit of normal at 55 % predicted. The airway resistance is elevated. Compared to previous pulmonary function tests from 07/09/2016, there has been a significant change in DLCO. FVC and FEV1 are decreased, but postbronchodilator results are consistent with previous testing. Impression: Partially reversible moderately severe large airways obstructive ventilatory defect with a symmetric reduction diffusing capacity. There has been some worsening compared to previous study. 08/12/17 1446 <Electronically signed by Renzo Fitzpatrick MD> Date Renzo Fitzpatrick MD CC: Renzo Fitzpatrick MD; Fior Lozada; Solomon Fremean MD Date Dictated: 08/12/171441 Date Transcribed: 08/12/171441 Correctional Sergeant: LITA Signed CBC W/DIFF, AUTOMATED Collected: 07/30/2017 Status: F Source: [place] 9:25 AM [facility] REPOSITORY TYPE CODE TESTS RESULT OUT OF RANGE REFERENCE UNITS LAB L100.1000 4.4-11.0 K/mm3 Normal WBC 7.4 LAB L100.1200 4.6-6.2 M/mm3 Normal RBC 4.69 LAB L100.1300 13.0-16.5 g/dl Normal HGB 14.0 LAB L100.1400 40-54 % Normal HCT 43.3 LAB L100.1500 80-94 fL Normal MCV 92.3 LAB L100.1600 27.0-32.0 pg Normal MCH 29.9 LAB L100.1700 32-36 g/gl Normal MCHC 32.3 LAB L100.1810 11.6-14.6 % Normal RDW CV 13.7 LAB L100.1820 35.1-43.9 fl High RDW SD 46.1 LAB L100.1900 150-450 K/mm3 Normal PLT 271 LAB L100.2000 6.2-12.0 fl Normal MPV 11.4 LAB L100.2100 47-70 % Normal NEUT% 48.9 LAB L100.2200 19-41 % Normal LY% 40.2 LAB L100.2300 0-10 % Normal MONO% 8.6 LAB L100.2400 0-5 % Normal EO% 1.9 LAB L100.2500 0-1 % Normal BASO% 0.3 LAB L100.2550 0.0-0.9 % Normal IM GRAN % 0.100 Result Comment: IG% - Immature Granulocytes (promyelocytes, myelocytes and metamyelocytes) > 1% indicates that a LEFT SHIFT is Present. LAB L100.2620 2.0-7.7 X10 3/uL Normal Absolute Neut 3.6 LAB L100.2720 0.83-4.51 X10 3/ul Normal Absolute Lymph 2.98 Performed By: #### L100.0100 #### [facility] Laboratory [address] [place], [place], [address] COMPREHENSIVE METABOLIC Collected: 07/30/2017 Status: F Source: [facility] 9:25 AM [facility] REPOSITORY TYPE CODE TESTS RESULT OUT OF RANGE REFERENCE UNITS LAB L501.0100 74-106 mg/dL Normal GLU 86 Result Comment: Please note revised GLUCOSE reference range effective 2017. LAB L501.1000 7-18 mg/dL Normal BUN 15 LAB L501.1100 0.70-1.30 mg/dL Normal CREAT,SERUM 0.98 Result Comment: The validity of the calculated GFR AND GFRAA in patients over 70 years has not been determined. Clinical correlation is essential. LAB L501.1110 >60 mL/min Normal EST GFR 78 Result Comment: Non- GFR Calc LAB L501.1115 >60 mL/min Normal EST GFR - AA 95 Result Comment: GFR Calc LAB L501.1300 10-20 RATIO Normal BUN/CRE 15.3 LAB L501.1500 6.4-8.2 g/dL T Normal PROT 6.9 LAB L501.1800 3.2-5.0 g/dL Low ALB 3.1 LAB L501.1950 2.2-4.2 g/dL Normal GLOB 3.8 LAB L501.2000 0.9-2.4 RATIO Low A/G 0.8 LAB L501.2200 8.5-10.1 mg/dL CA Normal 8.7 LAB L501.4100 15-37 U/L Normal AST 18 LAB L501.4305 45-117 U/L Normal ALK P 86 LAB L501.4405 16-61 U/L Normal ALT 34 Result Comment: Please note revised ALT reference range effective 2017. LAB L501.4600 0.20-1.00 mg/dL Normal T BILI 0.40 LAB L501.5300 136-145 mmol/L Normal NA 142 LAB L501.5600 3.5-5.1 mmol/L Normal K 3.8 LAB L501.5900 98-107 mmol/L High CL 108 LAB L501.6100 21.0-32.0 mmol/L Normal CO2 25.0 LAB L501.6200 5-15 Normal GAP 9 Performed By: #### L500.4050, L501.9520 #### [facility] Laboratory [address] [place], [address] THYROID STIM HORMONE Collected: 07/30/2017 Status: F Source: [place] (TSH) 9:25 AM [facility] REPOSITORY TYPE CODE TESTS RESULT OUT OF RANGE REFERENCE UNITS LAB L501.9520 0.358-3.74 uIU/mL Normal TSH 2.11 Performed By: #### L500.4050, L501.9520 #### [facility] Laboratory [address] [place], [address] KNEE 4 OR MORE Observed: 07/01/2017 Status: F Source: [place] VIEWS 3:38 PM [facility] Imaging Services [address] [place] [address] Knee 4 or More Views MR#: [id number] Acct: [id number] Name: ALONDRA THOMAS Rep #: [id number] : 1940 M 77 From: Zak Ewing MD PCP: Solomon Freeman MD, Chi Status: REG CLI Study: Knee 4 or More Views Date of Exam: 07/01/17 Exam# [id number] Ordering Dr: Solomon Freeman MD STUDY: X-RAY - RIGHT KNEE REASON FOR EXAM: Male, 77 years old. Pain TECHNIQUE: 4 view(s) of the knee. COMPARISON: None. FINDINGS: There is chondrocalcinosis. There is mild periarticular soft tissue calcification. Normal visualized distal femur. Normal visualized proximal tibia and fibula. Normal proximal tibiofibular articulation. RAD/Knee 4 or More Views IMPRESSION: CPPD deposition Electronically Signed: Zak Ewing MD at 22:45 EST Tel , Service support , CC: Solomon Freeman MD Correctional Sergeant: Signed ALLERGIES ALLERGIES DATE TYPE / CODE NAME / CODE REACTION SEVERITY SOURCE 05/27/2018 Drug No Known Unknown [facility] Allergy/4160 Allergies/F00 [facility] 37463(SNOMED [id number](RXNOR Repository CT) M) ENCOUNTERS ENCOUNTERS ADMIT/DISCHARGE ACCOUNT ADMITTING ENCOUNTER LOCATION SOURCE NUMBER CLASS 06/02/2018 [id number] Ambulatory [address] ing:[facility] Repository 05/27/2018 [id number] Ambulatory BMSBuilding:B [place] 2 [facility] Repository 05/27/2018 [id number] Ambulatory [place] [facility] Hospital ing:[facility] Repository 05/24/2018 [id number] Ambulatory [facility] [facility] Hospital ing:CT Repository 03/02/2018/ [id number] Ambulatory BMSBuilding:B [place] 8 4 [facility] Repository 02/01/2018 [id number] Ambulatory [place] 7 [facility] [facility]:POLAB3 Repository 08/21/2017/ [id number] Ambulatory BMSBuilding:B [place] 8 6 [facility] Repository 08/15/2017 [id number] Ambulatory BMSBuilding:W [place] 5 [facility] Repository 08/14/2017 [id number] Ambulatory [place] [facility] Hospital ing:PSN Repository 08/12/2017 [id number] Ambulatory [place] [facility] Hospital ing:PSN Repository 08/12/2017 [id number] Ambulatory BMSBuilding:W [place] 1 [facility] Repository 07/30/2017 [id number] Ambulatory [place] 5 [facility] Hospital ing:POLAB3 Repository 07/10/2017/ [id number] Ambulatory [place] 8 0 [facility] Hospital ing:PT Repository 07/01/2017 [id number] Ambulatory [place] 3 [facility] Hospital ing:RAD Repository PAYERS PAYERS ENCOUNTER GUARANTOR PAYER SUBSCRIBER SOURCE 06/02/2018 ALONDRA T Primary ALONDRA T [place] [id number] W Insurance:LENARD SIGLERDOB: [facility] [id number] Number: [place] [id number]: 330 Date:1712-15-06QX [phone] (KW) [place] [address]MD: 06/02/2018 Secondary NOT GIVENUNK [place] Insurance:SELF PAY [facility] Number: Effective Repository Date:2018-06-02 05/27/2018 ALONDRA T Primary ALONDRA T [place] [id number] W Insurance:LENARD SIGLERDOB: [facility] [id number] Northwestern Hospital Number: [place]ository [place] [id number]: (330) Date:9557-92-17Zx [phone] () [address] [address]KE: 05/27/2018 Secondary NOT GIVENUNK [place] Insurance:SELF PAY [facility] Number: Effective Repository Date:2018-05-27 05/27/2018 ALONDRA T Primary ALONDRA T [place] [id number] W Insurance:LENARD SIGLERDOB: [facility] [id number] Northwestern Hospital Number: [place]ository [place] [id number]: (330) Date:7601-07-62Ex [phone] () [address] [address]NI: 05/27/2018 Secondary NOT GIVENUNK [place] Insurance:SELF PAY [facility] Number: Effective Repository Date:2016-09-09 05/24/2018 ALONDRA T Primary ALONDRA T [place] [id number] W Insurance:LENARD SIGLERDOB: [facility] [id number] Northwestern Hospital Number: [place]ository [place] [id number]: (330) Date:4598-67-38QC [phone] (HP) [address], [place] [address]TD: 05/24/2018 Secondary NOT GIVENUNK [place] Insurance:SELF PAY [facility] Number: Effective Repository Date:2018-04-02 03/02/2018 ALONDRA T Primary ALONDRA T [place] [id number] W Insurance:LENARD SIGLERDOB: [facility] [id number] Northwestern Hospital Number: Repository [place] [id number]: (330) Date:8407-81-23HG [phone] (HP) [address], [place] [address]DL: 03/02/2018 Secondary NOT GIVENUNK [place] Insurance:SELF PAY [facility] Number: Effective Repository Date:2018-02-19 02/01/2018 ALONDRA T Primary ALONDRA T [place] [id number] W Insurance:LENARD SIGLERDOB: [facility] [id number] Northwestern Hospital Number: Repository [place] [id number]: ([phone]) Date:8693-48-87WH [phone] (HP) [address], [place] [address]CY: 02/01/2018 Secondary NOT GIVENUNK [place] Insurance:SELF PAY [facility] Number: Effective Repository Date:2018-02-01 08/21/2017 ALONDRA T Primary ALONDRA T [place] [id number] W Insurance:LENARD SIGLERDOB: [facility] [id number] Northwestern Hospital Number: Repository [place] [id number]: Date:4802-60-92US [phone] [address] -[place] (HP) [address]XJ: 08/21/2017 Secondary NOT GIVENUNK [place] Insurance:SELF PAY [facility] Number: Effective Repository Date:2017-06-01 08/15/2017 ALONDRA T Primary ALONDRA T [place] [id number] W Insurance:LENARD SIGLERDOB: [facility] [id number] Northwestern Hospital Number: Repository [place] [id number]: Date:1966-40-08En [phone] [address] -[place] (HP) [address]RF: 08/15/2017 Secondary NOT GIVENUNK [place] Insurance:SELF PAY [facility] Number: Effective Repository Date:2017-08-15 08/14/2017 Alondra T Primary Alondra Yates [place] [id number] W Insurance:LENARD SiglerDOB: [facility] [id number]'s [place] Number: [place]ository RdCar[place] [id number]: Date:2727-88-02Aj [phone] [address], [place] -[place] (HP) [address]ZE: 08/14/2017 Secondary NOT GIVENUNK [place] Insurance:SELF PAY [facility] Number: Effective Repository Date:2017-02-24 08/12/2017 Alondra T Primary Alondra Yates [place] [id number] W Insurance:LENARD SiglerDOB: [facility] [id number]'s [place] Number: [place] [id number]: Date:6537-93-04Wo [phone] [address] -[place] (HP) [address]LH: 08/12/2017 Secondary NOT GIVENUNK [place] Insurance:SELF PAY [facility] Number: Effective Repository Date:2017-02-24 08/12/2017 ALONDRA T Primary ALONDRA Yates [place] [id number] W Insurance:LENARD SIGLERDOB: [facility] [id number] Northwestern Hospital Number: Repository [place]DWOOJESSEe[place], [place] [id number]: Date:7734-72-71Xr [phone] [address], [place] -[place] (HP) [address]MO: 08/12/2017 Secondary NOT GIVENUNK [place] Insurance:SELF PAY [facility] Number: Effective Repository Date:2017-08-12 07/30/2017 Alondra T Primary Alondra Yates [place] [id number] W Insurance:LENARD SiglerDOB: [facility] [id number]'s [place] Number: [place] [address]tr[place] [id number]: Date:3255-32-29Ma [phone] [address], [place] -[place] (HP) [address]KH: 07/30/2017 Secondary NOT GIVENUNK [place] Insurance:SELF PAY [facility] Number: Effective Repository Date:2017-07-30 07/10/2017 Alondra T Primary Alondra T [place] [id number] W Insurance:LENARD SiglerDOB: [facility] [id number]'s [place] Number: [place] RdCaridad [place] [id number]: Date:4623-55-70Sz [phone] [address], [place] -[place] (HP) [address]AW: 07/10/2017 Secondary NOT GIVENUNK [place] Insurance:SELF PAY [facility] Number: Effective Repository Date:2017-07-09 07/01/2017 Alondra T Primary Alondra T [place] [id number] W Insurance:LENARD SiglerDOB: [facility] [id number]'s [place] Number: [place] RdWooj[place] [id number]: Date:0384-46-45Qc [phone] [address], [place] -[place] (HP) [address]LE: 07/01/2017 Secondary NOT GIVENUNK [place] Insurance:SELF PAY [facility] Number: Effective Repository Date:2017-07-01
== END ==
PROVIDERS: Family Provider Family Medicine Geriatric Medicine; PCP Family Medicine Geriatric Medicine; Referring Provider Internal Medicine Medical Oncology; Visit Provider Internal Medicine Medical Oncology
DX: Z01.812 Encounter for preprocedural laboratory examination (principal); C34.12 Malignant neoplasm of upper lobe, left bronchus or lung
CPT/HCPCS: 71260; Q9967

== ENCOUNTER → 2018-06-02 10:40 | Outpatient (CLI) | payer MEDICARE, SELFPAY ==
[2018-05-27 13:21] VITALS: BMI 25.6
--- NOTE | 2018-06-02 10:44 | VDUE_ITS ---
Reason For Study: RUE pain Right Proximal Right jugular vein is spontaneous, widely patent, phasic, with no intraluminal echogenicity noted. Right subclavian vein is spontaneous, widely patent, phasic, with no intraluminal echogenicity noted. Right Lower Arm Right radial vein is compressible. Right ulnar vein is compressible. Right Arm Right axillary vein is spontaneous, patent, phasic, competent, compressible and demonstrates augmentation. Right brachial vein is compressible. Right cephalic vein is compressible. Right basilic vein is compressible. Interpretation Summary Deep veins of the right upper extremity are patent and compressible segmentally. There is no evidence of deep vein thrombosis. The superficial veins of the right upper extremity, the basilic and cephalic veins, are patent and compressible. There is no evidence of right upper extremity superficial thrombophlebitis involving the veins imaged. Ordering Physician: Solomon Freeman Performed By: Raisa Zelaya RVT ?
--- NOTE | 2018-06-02 11:10 | RAD_ITS ---
STUDY: X-RAY - RIGHT SHOULDER REASON FOR EXAM: Male, 78 years old. Two-week history of acute pain. TECHNIQUE: 4 view(s) of the shoulder. COMPARISON: None. FINDINGS: Normal glenohumeral articulation. There is hypertrophic osteoarthrosis of the acromioclavicular joint with inferior osseous spur formation. Normal acromion. Normal humeral head and visualized proximal humerus. The soft tissue structures are unremarkable. Normal visualized pulmonary apex. RAD/Shoulder min 2 Views IMPRESSION: Osteoarthritis of the acromioclavicular joint. Electronically Signed: River Staples MD at 12:00 EST Tel [phone], Service support ,
--- OUTSIDE RECORDS SUMMARY | 2018-07-19 12:41 | XMS RPT_ITS ---
:1940 Author Organization OHIP Support Name Relationship Address Phone R Unavailable Unavailable Unavailable HILLARY, ROYAL Unavailable [address] + [place] [address] R Unavailable Unavailable Unavailable HILLARY, ROYAL Unavailable [address] + [place] [address] R Unavailable Unavailable Unavailable HILLARY, ROYAL Unavailable [address] [place] [address] RD + [place] [address] R Unavailable Unavailable Unavailable R Unavailable Unavailable Unavailable HILLARY, ROYAL Unavailable [address] + [place] [address] R Unavailable Unavailable Unavailable HILLARY, ROYAL Unavailable [address] + [place] [address] R Unavailable Unavailable Unavailable HILLARY, ROYAL Unavailable [address] + [place] [address] R Unavailable Unavailable Unavailable HILLARY, ROYAL Unavailable [address] + [place] [address] R Unavailable Unavailable Unavailable HILLARY, ROYAL Unavailable [address] + [place] [address] R Unavailable Unavailable Unavailable HILLARY, ROYAL Unavailable [address] [place] [address] RD + [place] [address] R Unavailable Unavailable Unavailable HILLARY, ROYAL Unavailable [address] + [place] [address] R Unavailable Unavailable Unavailable HILLARY, ROYAL Unavailable [address] + [place] [address] R Unavailable Unavailable Unavailable HILLARY, ROYAL Unavailable [address] + [place] [address] R Unavailable Unavailable Unavailable ROYAL THOMAS Unavailable [address] [facility] + [place] [address] Care Team Providers Name Role Phone Pete, Solomon Chi Attending Unavailable Pete, Solomon Chi Primary Care Unavailable Jabour, Margient Attending Unavailable Jabour, Vincent Referring Unavailable Pete, Solomon Chi Primary Care Unavailable Pete, Solomon Chi Primary Care Unavailable Prah, Hansel Attending Unavailable Pete, Solomon Chi Attending Unavailable Pete, Solomon Chi Primary Care Unavailable Lozada, Fior Attending Unavailable Lozada, Fior Referring Unavailable Pete, Solomon Chi Primary Care Unavailable Lozada, Fior Attending Unavailable Lozada, Fior Referring Unavailable Pete, Solomon Chi Primary Care Unavailable Lozada, Fior Attending Unavailable Pete, Solomon Chi Referring Unavailable Amari, Renzo Attending Unavailable Lozada, Fior Referring Unavailable Amari, Renzo Attending Unavailable Lozada, Fior Referring Unavailable Pete, Solomon Chi Attending Unavailable Pete, Solomon Chi Primary Care Unavailable Amari, Renzo Attending Unavailable Pete, Solomon Chi Referring Unavailable Pete, Solomon Chi Primary Care Unavailable Pracat, Hansel Attending Unavailable PraHansel shelton Referring Unavailable Pete, Solomon Chi Primary Care Unavailable Pracat, Hansel Attending Unavailable Pete, Solomon Chi Primary Care Unavailable Deon, Hansel Consulting Unavailable PROBLEMS PROBLEMS DATE TYPE CONDITION / CODE ATTENDING STATUS SOURCE 05/27/2018 Unknown C34.12 - Hansel Chavarria Active [facility] neoplasm of upper Hospital lobe, left Repository bronchus or lung / C34.12(ICD-10) 08/14/2017 Unknown R06.00 - Dyspnea, Lozada, Active [facility] R06.00(ICD-10) Hospital Repository 07/30/2017 Unknown R53.83 - Other Pete, Solomon Chi Active [facility] R53.83(ICD-10) Hospital Repository PROCEDURES PROCEDURES No Procedure Records FoundRESULTS RESULTS ESOPHAGUS ONLY Observed: 07/07/2018 Status: F Source: [place] 8:21 AM [facility] REPOSITORY [facility] Imaging Services [address] [place] [address] Esophagus Only MR#: [id number] Acct: [id number] Name: ALONDRA THOMAS Rep #: [id number] : 1940 M 78 From: River Staples MD PCP: Solomon Freeman MD, Chi Status: REG CLI Study: Esophagus Only Date of Exam: 07/07/18 Exam# [id number] Ordering Dr: Chad Neves MD STUDY: X-RAY - ESOPHAGUS (BARIUM SWALLOW) WITH FLUOROSCOPY REASON FOR EXAM: Male, 78 years old. Dysphagia for solids. TECHNIQUE: 15 view(s) of the esophagus were obtained following swallowing of barium. FLUOROSCOPY TIME (if supplied): (0:30) minutes/seconds COMPARISON: None. FINDINGS: There is no demonstrated esophageal foreign body. There is no demonstrated stricture or mucosal abnormality. Normal gastroesophageal junction, without a demonstrated hiatal hernia. The patient ingested a 12 mm tablet of barium without any difficulty. There is atherosclerotic calcification of the aortic arch with tortuosity of the descending aorta. Normal visualized pulmonary parenchyma. Normal visualized osseous structures of the thorax. RAD/Esophagus Only IMPRESSION: Normal plain film x-ray examination (barium swallow) of the esophagus. Electronically Signed: River Staples MD at 14:40 EST Tel [phone], Service support , CC: Solomon Freeman MD; Chad Neves [employer] Roaster Helper: Signed VENOUS DUPLEX UPPER Observed: 06/06/2018 Status: F Source: [place] EXTREMITY 9:[address] [facility] REPOSITORY [facility] Cardiovascular Services [address] [place] [address] Venous Duplex US, Unilateral 06/02/18 1051 MR#: [id number] Acct: [id number] Name: ALONDRA THOMAS Rep #: [id number] : 1940 78 From: Joey Beverly MD [...] MD Date Dictated: 06/02/18 1051 Date Transcribed: 06/06/18934 [employer] Helper: Signed SHOULDER MIN 2 VIEWS Observed: 06/02/2018 Status: F Source: [place] 11:[address] [facility] REPOSITORY [facility] Imaging Services [address] [place] [address] Shoulder min 2 Views MR#: [id number] Acct: [id number] Name: ALONDRA THOMAS Rep #: [id number] : 1940 M 78 From: River Staples MD PCP: Solomon Freeman MD, Chi Status: REG CLI Study: Shoulder min 2 Views Date of Exam: 06/02/18 Exam# [id number] Ordering Dr: Solomon Freeman MD STUDY: X-RAY [...] River Staples MD at 12:00 EST Tel [phone], Service support , CC: Solomon Freeman MD Coc[employer] Roaster Helper: Signed ONCOLOGY VISIT REPORT Observed: 05/27/2018 Status: F Source: [place] 2:[address] [facility] REPOSITORY [facility] Medical Oncology [address] [place] [address] OFFICE VISIT Date of Service: 05/27/18 1354 MR#: [id number] Acct: [id number] Name: ALONDRA THOMAS Rep #: [id number] : 1940 From: Hansel Chavarria MD Age/Sex: 78/M Location: [facility] Status: Signed Subjective - Date of Service [...] was ultimately resected by Dr. Monterroso in [place] in April 122014. The patient was initially [...] 05/27/2018 Status: F Source: [place] 1:[address] [facility] REPOSITORY Order Comment: Reason for Laboratory Test [...] Lymph 2.92 Performed By: #### L100.0100 #### [facility] [address] [place], [address] COMPREHENSIVE METABOLIC Collected: 05/27/2018 Status: F Source: [place] [facility] 1:[address] [facility] REPOSITORY Order Comment: Reason for Laboratory Test [...] GAP 5 Performed By: #### L500.4050 #### [facility] [address] [place], [place], [address] CREATININE FINGERSTICK Collected: 05/24/2018 Status: F Source: [place] 8:[address] [facility] REPOSITORY TYPE CODE TESTS RESULT OUT OF RANGE REFERENCE UNITS LAB L9100.0210 0.70-1.30 mg/dL Normal CREATININE WB 1.2 LAB L9100.0220 >60 mL/min EGFR WB Normal > 60.0000 Performed By: #### L9100.0200 #### [facility] Point of Care [address] [place] [address] CHEST WITH CONTRAST Observed: 05/24/2018 Status: F Source: [place] 7:[address] [facility] REPOSITORY [facility] Imaging Services [address] [place] [address] Chest WITH Contrast MR#: [id number] Acct: [id number] Name: ALONDRA THOMAS Rep #: [id number] : 1940 M 78 From: Divine Brito MD PCP: Solomon Freeman MD, Chi Status: REG CLI Study: Chest WITH Contrast Date of Exam: 05/24/18 Exam# [id number] Ordering Dr: Hansel Chavarria MD STUDY: CT [...] Signed: Divine Brito MD at 17:16 EST Tel , Service support , CC: Hansel Chavarria MD; Solomon Freeman MD Coc[employer] Bean Roaster Helper: Signed PULMONARY VISIT REPORT Observed: 03/02/2018 Status: F Source: [place] 9:[address] [facility] REPOSITORY Pulmonary Medicine [address] [place] [address] OFFICE VISIT Date of Service: 03/02/18 MR#: [id number] Acct: [id number] Name: ALONDRA THOMAS Rep #: [id number] : 1940 Provider: Renzo Fitzpatrick MD Age/Sex: 77/M Location: [facility].PM[facility] Status: Signed Assessment AND Plan Problems 1. [...] New: Plan Detail Follow Up 6 Months ([facility]) HPI 6 M FU: Chief Complaint: Shortness [...] reports that he continues to follow with [facility]. Patient anticipates a repeat CT scan in April or May of this year. Patient is currently on 1 year follow-up visit. 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 REPOSITORY TYPE CODE TESTS RESULT OUT OF [...] Lymph 2.62 Performed By: #### L100.0100 #### [facility] [address] [facility] [place], [address] VITAMIN D,25 HYDROXY Collected: 02/01/2018 Status: F Source: [place] 9:[address] [facility] REPOSITORY TYPE CODE TESTS RESULT OUT OF RANGE REFERENCE UNITS LAB L506.1000 29.95-100.01 ng/mL Normal Vitamin D 43.7 25-OH Result Comment: Vitamin D 25(OH) Status Range Deficiency <20 ng/mL (50nmol/L) Insuffciency 20 - 30 ng/mL (50 - 75 nmol/L) Sufficiency 30 - 100 ng/mL (75 - 250 nmol/L) Toxicity >100 ng/mL (>250 nmol/L) Performed By: #### L506.1000 #### [facility] [address] [facility] [place], [address] COMPREHENSIVE METABOLIC Collected: 02/01/2018 Status: F Source: [facility] 9:[address] [facility] REPOSITORY TYPE CODE TESTS RESULT OUT OF [...] 12 Performed By: #### L500.4050, L501.9520 #### [facility] [address] [facility] [place], [address] THYROID STIM HORMONE Collected: 02/01/2018 Status: F Source: [place] (TSH) 9:[address] [facility] REPOSITORY TYPE CODE TESTS RESULT OUT OF RANGE REFERENCE UNITS LAB L501.9520 0.358-3.74 uIU/mL Normal TSH 2.80 Performed By: #### L500.4050, L501.9520 #### [facility] [address] [facility] [address] [address] [place], [place], [address] PULMONARY VISIT REPORT Observed: 08/21/2017 Status: F Source: [place] 4:[address] [facility] REPOSITORY Pulmonary Medicine of [address] [place] [address] OFFICE VISIT Date of Service: 08/21/17 MR#: [id number] Acct: [id number] Name: ALONDRA THMOAS Rep #: [id number] : 1940 Provider: Fior Lozada Age/Sex: 77/M Location: [facility].W Status: Signed Assessment AND Plan 1. Stage [...] the patient that he can purchase Flonase gevv-wma-jbaxeqd to control his postnasal drip. Follow-up with Dr. Fitzpatrick in 6 months. 3. 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 Last CT of the chest was done 3 months ago. He follows with [facility]. Plan Detail Follow Up 6 Months ([facility]) HPI 6 M FU: Chief Complaint: shortness [...] C34.12 08/21/17 1605 <Electronically signed by Fior Lozada [employer]-C> Date Firo HURST Cosigner Signature: Date (if applicable) CC: Solomon Freeman MD 6 MINUTE WALK TEST Observed: 08/15/2017 Status: F Source: [place] 7:[address] [facility] REPOSITORY [facility] Pulmonary Services/Neurology [address] [place] [address] [place] [address] MR#: [id number] Acct: [id number] Name: ALONDRA THOMAS Rep #: [id number] : 1940 77 From: Renzo Fitzpatrick MD Referring Dr: Fior Lozada NP Date: Ordering Dr: Martin: Buzz Lynn Location: PSN PSN 6 Minute Walk Test - 6 Minute Walk Test 6 Minute Walk Test: 6 Minute Walk Test PSN:6-Minute Walk Test Start: 08/14/17 09:16 Freq: Status: Active Protocol: RESP.6MINW Document 08/14/17 09:16 MISHEL (Rec: 08/14/17 09:20 SFENTON [id number]) 6 Minute Walk Test Date Performed 08/14/17 [...] CC: Date Dictated: 08/15/17716 Date Transcribed: 08/15/17716 [employer] Ro[employer] Helper: Renzo Fitzpatrick Signed PULMONARY FUNCTION Observed: 08/12/2017 Status: F Source: [place] REPORT COMP 2:[address] [facility] REPOSITORY [facility] Pulmonary Services/Neurology [address] [place] [address] MR#: [id number] Acct: [id number] Name: ALONDRA THOMAS Rep #: [id number] : 1940 77 From: Renzo Fitzpatrick MD Referring Dr: Fior Lozada [employer] Status: REG CLI Ordering Dr: Date: Location: PSN Sex: M C COMPLETE PULMONARY FUNCTION TEST INTERPRETATION Brief HPI: Patient is a 77 year old male, currently under the care of Fior Lozada, who presents to [facility] for complete pulmonary function tests secondary to [...] been some worsening compared to previous study. 08/12/176 <Electronically signed by Renzo Fitzpatrick MD> Date Renzo Fitzpatrick MD CC: Renzo Fitzpatrick MD; Fior Lozada; Solomon Freeman MD Date Dictated: 08/12/171441 Date Transcribed: 08/12/171441 [employer] Helper: LITA Signed CBC W/DIFF, AUTOMATED Collected: 07/30/2017 Status: F Source: [place] 9:[address] [facility] REPOSITORY TYPE CODE TESTS RESULT OUT OF [...] Lymph 2.98 Performed By: #### L100.0100 #### [facility] [address] [place], [address] COMPREHENSIVE METABOLIC Collected: 07/30/2017 Status: F Source: [facility] 9:[address] [facility] REPOSITORY TYPE CODE TESTS RESULT OUT OF [...] 9 Performed By: #### L500.4050, L501.9520 #### [facility] [address] [place], [place], [address] THYROID STIM HORMONE Collected: 07/30/2017 Status: F Source: [place] (TSH) 9:[address] [facility] REPOSITORY TYPE CODE TESTS RESULT OUT OF RANGE REFERENCE UNITS LAB L501.9520 0.358-3.74 uIU/mL Normal TSH 2.11 Performed By: #### L500.4050, L501.9520 #### [facility] [address] [facility] [place], [address] ALLERGIES ALLERGIES DATE TYPE / CODE NAME / CODE REACTION SEVERITY SOURCE 05/27/2018 Drug No Known Unknown [facility] Allergy/4160 Allergies/F00 [facility] 02177(SNOMED 5725504(RXNOR Repository CT) M) ENCOUNTERS ENCOUNTERS ADMIT/DISCHARGE ACCOUNT ADMITTING ENCOUNTER LOCATION SOURCE NUMBER CLASS 07/07/2018 [id number] Ambulatory [place] [facility] 1 [facility] ing:RAD Repository 06/02/2018 [id number] Ambulatory [place] 3 [facility] ing:[facility] Repository 05/27/2018 [id number] Ambulatory BMSBuilding:B [place] 2 [place].CF.WMO [facility] Hospital Repository 05/27/2018 [id number] Ambulatory [place] 0 [facility] Hospital ing:OMD Repository 05/24/2018 [id number] Ambulatory [place] 8 [facility] Hospital ing:CT Repository 03/02/2018/ [id number] Ambulatory BMSBuilding:B [place] 8 4 [facility] Hospital Repository 02/01/2018 [id number] Ambulatory [place] 7 [facility] Hospital ing:POLAB3 Repository 08/21/2017/ [id number] Ambulatory BMSBuilding:B [place] 8 6 MS.W [facility] Hospital Repository 08/15/2017 [id number] Ambulatory BMSBuilding:W [place] 5 [facility] Repository 08/14/2017 [id number] Ambulatory [place] 2 [facility] Hospital ing:PSN Repository 08/12/2017 [id number] Ambulatory [place] 9 [facility] Hospital ing:PSN Repository 08/12/2017 [id number] Ambulatory BMSBuilding:W [place] 1 [facility] Repository 07/30/2017 [id number] Ambulatory [place] 5 [facility] Hospital ing:POLAB3 Repository PAYERS PAYERS ENCOUNTER GUARANTOR PAYER SUBSCRIBER SOURCE 07/07/2018 ALONDRA T Primary ALONDRA T [place] [id number] W Insurance:LENARD SIGLERDOB: [facility] 4704-74-43FBKEssentia Health Number: [place] [id number]: 330) Date:8670-56-39SL [phone] (ZS) [place] [address]HH: 07/07/2018 Secondary NOT GIVENUNK [facility] Insurance:SELF PAY [facility] Number: Effective Repository Date:2018-06-30 06/02/2018 ALONDRA T Primary ALONDRA T [place] [id number] W Insurance:LENARD SIGLERDOB: [facility] [id number] Health Number: Repository flakito SUN [id number]: ([phone]) Date:7290-47-33[phone] (HP) [address], [place] [address]RG: 06/02/2018 Secondary NOT GIVENUNK [place] Insurance:SELF PAY [facility] Number: Effective Repository Date:2018-06-02 05/27/2018 ALONDRA T Primary ALONDRA T [place] [id number] W Insurance:LENARD SIGLERDOB: [facility] 5411-28-15NWREssentia Health Number: Repository [place] [id number]: (330) Date:7965-53-25Rg [phone] (HP) [address] [address]VT: 05/27/2018 Secondary NOT GIVENUNK [place] Insurance:SELF PAY [facility] Number: Effective Repository Date:2018-05-27 05/27/2018 ALONDRA T Primary ALONDRA T [place] [id number] W Insurance:LENARD SIGLERDOB: [facility] [id number] Health Number: Repository [place] [id number]: (330) Date:3138-59-63Dk [phone] (HP) [address] [address]MC: 05/27/2018 Secondary NOT GIVENUNK [place] Insurance:SELF PAY [facility] Number: Effective Repository Date:2016-09-09 05/24/2018 ALONDRA T Primary ALONDRA T [place] [id number] W Insurance:LENARD SIGLERDOB: [facility] 3193-10-33FTMEssentia Health Number: Repository [place] [id number]: (330) Date:3873-61-14YR [phone] (HP) [address], [place] [address]YF: 05/24/2018 Secondary NOT GIVENUNK [place] Insurance:SELF PAY [facility] Number: Effective Repository Date:2018-04-02 03/02/2018 ALONDRA T Primary ALONDRA T [place] [id number] W Insurance:LENARD SIGLERDOB: [facility] 7794-82-23WTYEssentia Health Number: Repository [place] [id number]: (330) Date:3924-00-46YY [phone] (HP) [address], [place] [address]QG: 03/02/2018 Secondary NOT GIVENUNK [place] Insurance:SELF PAY [facility] Number: Effective Repository Date:2018-02-19 02/01/2018 ALONDRA T Primary ALONDRA [place] [id number] W Insurance:LENARD SIGLERDOB: [facility] 1818-28-17QGLEssentia Health Number: Repository [place] [id number]: (440) Date:6915-11-52BP [phone] (HP) [address], [place] [address]TG: 02/01/2018 Secondary NOT GIVENUNK [place] Insurance:SELF PAY [facility] Number: Effective Repository Date:2018-02-01 08/21/2017 ALONDRA T Primary ALONDRA T [place] [id number] W Insurance:LENARD SIGLERDOB: [facility] 7148-30-01WVOEssentia Health Number: Repository RDWJENNA [place] [id number]: Date:6585-92-18[phone] [place], [place] -[place] () [address]GW: 08/21/2017 Secondary NOT GIVENUNK [place] Insurance:SELF PAY [facility] Number: Effective Repository Date:2017-06-01 08/15/2017 ALONDRA T Primary ALONDRA T [place] [id number] W Insurance:LENARD SIGLERDOB: [facility] 6612-46-71DVMEssentia Health Number: Repository flakito SUN [id number]: Date:1163-98-13Jj [phone] [place], [place] -[place] (HP) [address]LB: 08/15/2017 Secondary NOT GIVENUNK [place] Insurance:SELF PAY [facility] Number: Effective Repository Date:2017-08-15 08/14/2017 Alondra T Primary Alondra T [place] [id number] W Insurance:LENARD SiglerDOB: [facility] 4686-55-10LLZRiver[facility] Edge Hospital Number: Repository [place] [id number]: Date:9098-67-84Ag [phone] [address], [place] -[place] () [address]EM: 08/14/2017 Secondary NOT GIVENUNK [place] Insurance:SELF PAY [facility] Number: Effective Repository Date:2017-02-24 08/12/2017 Alondra T Primary Alondra T [place] [id number] W Insurance:LENARD SiglerDOB: [facility] 8694-72-79KRQRiver's Edge Hospital Number: Repository [place] [id number]: Date:2952-17-25Qn [phone] [place], [place] -3 (HP) [address]OQ: 08/12/2017 Secondary NOT GIVENUNK [place] Insurance:SELF PAY [facility] Number: Effective Repository Date:2017-02-24 08/12/2017 ALONDRA T Primary ALONDRA T [place] [id number] W Insurance:LENARD SIGLERDOB: [facility] 6746-40-22ULZEssentia Health Number: Repository [place] [id number]: Date:3233-76-48Sl [phone] [place], [place] -[place] () [address]HD: 08/12/2017 Secondary NOT GIVENUNK [place] Insurance:SELF PAY [facility] Number: Effective Repository Date:2017-08-12 07/30/2017 Alondra Yates Primary Alondra Mclean [id number] W Insurance:LENARD SiglerDOB: [facility] 7933-53-08TGPRiver's Edge Hospital Number: [place]ository [place] [id number]: Date:4074-21-67Jj [phone] [place], [place] -[place] () [address]OC: 07/30/2017 Secondary NOT GIVENUNK [place] Insurance:SELF PAY [facility] Number: Effective Repository Date:2017-07-30
== END ==
PROVIDERS: Family Provider Family Medicine Geriatric Medicine; PCP Family Medicine Geriatric Medicine; Visit Provider Family Medicine Geriatric Medicine
DX: R60.0 Localized edema (principal)
CPT/HCPCS: 73030; 93971

== ENCOUNTER → 2018-07-07 08:15 | Outpatient (CLI) | payer MEDICARE, SELFPAY ==
[2018-05-27 13:21] VITALS: BMI 25.6
--- NOTE | 2018-07-07 08:30 | RAD_ITS ---
STUDY: X-RAY - ESOPHAGUS (BARIUM SWALLOW) WITH FLUOROSCOPY REASON FOR EXAM: Male, 78 years old. Dysphagia for solids. TECHNIQUE: 15 view(s) of the esophagus were obtained following swallowing of barium. FLUOROSCOPY TIME (if supplied): (0:30) minutes/seconds COMPARISON: None. FINDINGS: There is no demonstrated esophageal foreign body. There is no demonstrated stricture or mucosal abnormality. Normal gastroesophageal junction, without a demonstrated hiatal hernia. The patient ingested a 12 mm tablet of barium without any difficulty. There is atherosclerotic calcification of the aortic arch with tortuosity of the descending aorta. Normal visualized pulmonary parenchyma. Normal visualized osseous structures of the thorax. RAD/Esophagus Only IMPRESSION: Normal plain film x-ray examination (barium swallow) of the esophagus. Electronically Signed: River Staples MD at 14:40 EST Tel [phone], Service support ,
--- OUTSIDE RECORDS SUMMARY | 2018-09-10 23:04 | XMS RPT_ITS ---
:1940 Author Organization OHIP Support Name Relationship Address Phone R Unavailable Unavailable Unavailable HILLARY, ROYAL Unavailable [address] + [place] [address] R Unavailable Unavailable Unavailable HILLARY, ROYAL Unavailable [address] + [place] [address] R Unavailable Unavailable Unavailable HILLARY, ROYAL Unavailable [address] [place] [address] RD + [place] [address] R Unavailable Unavailable Unavailable R Unavailable Unavailable Unavailable HILLARY, ROYAL Unavailable [address] + [place] [address] R Unavailable Unavailable Unavailable HILLARY, ROYAL Unavailable [address] + [place] [address] R Unavailable Unavailable Unavailable HILLARY, ROYAL Unavailable [address] + [place] [address] R Unavailable Unavailable Unavailable HILLARY, ROYAL Unavailable [address] + [place] [address] R Unavailable Unavailable Unavailable HILLARY, ROYAL Unavailable [address] + [place] [address] R Unavailable Unavailable Unavailable HILLARY, ROYAL Unavailable [address] [place] [address] RD + [place] [address] R Unavailable Unavailable Unavailable HILLARY, ROYAL Unavailable [address] + [place] [address] R Unavailable Unavailable Unavailable HILLARY, ROYAL Unavailable [address] + [place] [address] R Unavailable Unavailable Unavailable HILLARY, ROYAL Unavailable [address] + [place] [address] R Unavailable Unavailable Unavailable ROYAL THOMAS Unavailable [address] [facility] + [place] [address] Care Team Providers Name Role Phone Pete, [...] 05/27/2018 Unknown C34.12 - Hansel Chavarria Active [facility] neoplasm of upper Hospital lobe, left Repository bronchus or lung / C34.12(ICD-10) 08/14/2017 Unknown R06.00 - Dyspnea, Lozada, Active [facility] R06.00(ICD-10) Hospital Repository 07/30/2017 Unknown R53.83 - Other Pete, Solomon Chi Active [facility] fatigue / [facility] R53.83(ICD-10) Hospital Repository PROCEDURES PROCEDURES No Procedure Records FoundRESULTS RESULTS ESOPHAGUS ONLY Observed: 07/07/2018 Status: F Source: [place] 8:21 AM [facility] REPOSITORY [facility] Imaging Services [address] [place] [address] Esophagus Only MR#: [id number] Acct: [id number] Name: ALONDRA THOMAS Rep #: [id number] : 1940 M 78 From: River Staples MD PCP: Solomon Freeman MD, Chi Status: REG CLI Study: Esophagus Only Date of Exam: 07/07/18 Exam# [id number] Ordering Dr: Chad Neves MD STUDY: X-RAY [...] River Staples MD at 14:40 EST Tel [phone], Service support , CC: Solomon Freeman MD; Chad Neves Entry Engineer: Signed VENOUS DUPLEX UPPER Observed: 06/06/2018 Status: F Source: [place] EXTREMITY 9:35 AM [facility] REPOSITORY [facility] Cardiovascular Services [address] [place] [address] Venous Duplex US, Unilateral 06/02/18 1051 MR#: [id number] Acct: [id number] Name: ALONDRA THOMAS Rep #: [id number] : 1940 78 From: Joey Beverly MD [...] Date Dictated: 06/02/18 1051 Date Transcribed: 06/06/18934 Entry Engineer: Signed SHOULDER MIN 2 VIEWS Observed: 06/02/2018 Status: F Source: [place] 11:04 AM [facility] REPOSITORY [facility] Imaging Services [address] [place] [address] Shoulder min 2 Views MR#: [id number] Acct: [id number] Name: ALONDRA THOMAS Rep #: [id number] : 1940 M 78 From: River Staples MD PCP: Solomon Freeman MD, Chi Status: REG CLI Study: Shoulder min 2 Views Date of Exam: 06/02/18 Exam# [id number] Ordering Dr: Solomon Freeman MD STUDY: X-RAY [...] River Staples MD at 12:00 EST Tel [phone], Service support , CC: Solomon Freeman MD Entry Engineer: Signed ONCOLOGY VISIT REPORT Observed: 05/27/2018 Status: F Source: [place] 2:03 PM [facility] REPOSITORY [facility] [address] [place] [address] OFFICE VISIT Date of Service: 05/27/18 1354 MR#: [id number] Acct: [id number] Name: ALONDRA THOMAS Rep #: [id number] : 1940 From: Hansel Chavarria MD Age/Sex: [...] was ultimately resected by Dr. Monterroso in [place] in April 122014. The patient was initially [...] 05/27/2018 Status: F Source: [place] 1:10 PM [facility] REPOSITORY Order Comment: Reason for Laboratory Test [...] Lymph 2.92 Performed By: #### L100.0100 #### [facility] [address] [place], [address] COMPREHENSIVE METABOLIC Collected: 05/27/2018 Status: F Source: [place] [facility] 1:10 PM [facility] REPOSITORY Order Comment: Reason for Laboratory Test [...] GAP 5 Performed By: #### L500.4050 #### [facility] [address] [place], [place], [address] CREATININE FINGERSTICK Collected: 05/24/2018 Status: F Source: [place] 8:06 AM [facility] REPOSITORY TYPE CODE TESTS RESULT OUT OF RANGE REFERENCE UNITS LAB L9100.0210 0.70-1.30 mg/dL Normal CREATININE WB 1.2 LAB L9100.0220 >60 mL/min EGFR WB Normal > 60.0000 Performed By: #### L9100.0200 #### [facility] Point of Care [address] [place] [address] CHEST WITH CONTRAST Observed: 05/24/2018 Status: F Source: [place] 7:49 AM [facility] REPOSITORY [facility] Imaging Services [address] [place] [address] Chest WITH Contrast MR#: [id number] Acct: [id number] Name: ALONDRA THOMAS Rep #: [id number] : 1940 M 78 From: Divine Brito MD PCP: Solomon Freeman MD, Chi Status: REG CLI Study: Chest WITH Contrast Date of Exam: 05/24/18 Exam# [id number] Ordering Dr: Hansel Chavarria MD STUDY: CT [...] CC: Hansel Chavarria MD; Solomon Freeman MD Entry Engineer: Signed PULMONARY VISIT REPORT Observed: 03/02/2018 Status: F Source: [place] 9:41 AM [facility] REPOSITORY Pulmonary Medicine [address] [place] [address] OFFICE VISIT Date of Service: 03/02/18 MR#: [id number] Acct: [id number] Name: ALONDRA THOMAS Rep #: [id number] : 1940 Provider: Renzo Fitzpatrick MD Age/Sex: 77/M Location: [facility] Status: Signed Assessment AND Plan Problems 1. [...] New: Plan Detail Follow Up 6 Months ([facility]) HPI 6 M FU: Chief Complaint: Shortness [...] reports that he continues to follow with [facility]. Patient anticipates a repeat CT scan in April or May of this year. Patient is currently on 1 year follow-up visit. Intake Vital Signs03/02/18 Height 5 ft 9 in 03/02/18 Weight: 73.482 kg Intake Visit Reasons: 6 M FU Ammonia Distiller Required: No Accompanied by: Self Is patient [...] ascites or epigastric tenderness Genitourinary: Positive deferred [facility] Musculoskeletal: Positive steady gait; negative using an [...] 02/01/2018 Status: F Source: [place] 9:57 AM [facility] REPOSITORY TYPE CODE TESTS RESULT OUT OF [...] Lymph 2.62 Performed By: #### L100.0100 #### [facility] [address] [facility] [place], [address] VITAMIN D,25 HYDROXY Collected: 02/01/2018 Status: F Source: [place] 9:57 AM [facility] REPOSITORY TYPE CODE TESTS RESULT OUT OF RANGE REFERENCE UNITS LAB L506.1000 29.95-100.01 ng/mL Normal Vitamin D 43.7 25-OH Result Comment: Vitamin D 25(OH) Status Range Deficiency <20 ng/mL (50nmol/L) Insuffciency 20 - 30 ng/mL (50 - 75 nmol/L) Sufficiency 30 - 100 ng/mL (75 - 250 nmol/L) Toxicity >100 ng/mL (>250 nmol/L) Performed By: #### L506.1000 #### [facility] [address] [facility] [place], [address] COMPREHENSIVE METABOLIC Collected: 02/01/2018 Status: F Source: [facility] 9:57 AM [facility] REPOSITORY TYPE CODE TESTS RESULT OUT OF [...] 12 Performed By: #### L500.4050, L501.9520 #### [facility] [address] [facility] [place], [address] THYROID STIM HORMONE Collected: 02/01/2018 Status: F Source: [place] (TSH) 9:57 AM [facility] REPOSITORY TYPE CODE TESTS RESULT OUT OF RANGE REFERENCE UNITS LAB L501.9520 0.358-3.74 uIU/mL Normal TSH 2.80 Performed By: #### L500.4050, L501.9520 #### [facility] [address] [place], [place], [address] PULMONARY VISIT REPORT Observed: 08/21/2017 Status: F Source: [place] 4:05 PM [facility] REPOSITORY Pulmonary Medicine of [address] [place] [address] OFFICE VISIT Date of Service: 08/21/17 MR#: [id number] Acct: [id number] Name: ALONDRA THOMAS Rep #: [id number] : 1940 Provider: Fior Lozada Age/Sex: 77/M Location: [facility] Status: Signed Assessment AND Plan 1. Stage [...] the patient that he can purchase Flonase [id number]-skpqdlm to control his postnasal drip. Follow-up with Dr. Fitzpatrick in 6 months. 3. 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 Last CT of the chest was done 3 months ago. He follows with [facility]. Plan Detail Follow Up 6 Months ([facility]) HPI 6 M FU: Chief Complaint: [...] 08/21/17 1605 <Electronically signed by Fior Lozada TUBE FILLER-C> Date Firo HURST Cosigner Signature: Date (if applicable) CC: Solomon Freeman MD 6 MINUTE WALK TEST Observed: 08/15/2017 Status: F Source: [place] 7:18 AM [facility] REPOSITORY [facility] Pulmonary Services/Neurology [address] [place] [address] [place] [address] MR#: [id number] Acct: [id number] Name: ALONDRA THOMAS Rep #: [id number] : 1940 77 From: Renzo Fitzpatrick MD Referring Dr: Fior Lozada NP Date: Ordering Dr: Matrin: Buzz Lynn Location: PSN PSN 6 Minute Walk Test - 6 Minute Walk Test 6 Minute Walk Test: 6 Minute Walk Test PSN:6-Minute Walk Test Start: 08/14/17 09:16 Freq: Status: Active Protocol: RESP.6MINW Document 08/14/17 09:16 MISHEL (Rec: 08/14/17 09:20 SFENTON [id number]) 6 Minute Walk Test Date Performed 08/14/17 [...] CC: Date Dictated: 08/15/17716 Date Transcribed: 08/15/17716 Entry Engineer: Renzo Fitzpatrick Signed PULMONARY FUNCTION Observed: 08/12/2017 Status: F Source: [place] REPORT COMP 2:46 PM [facility] REPOSITORY [facility] Pulmonary Services/Neurology [address] [place] [address] MR#: [id number] Acct: [id number] Name: ALONDRA THOMAS Rep #: [id number] : 1940 77 From: Renzo Fitzpatrick MD Referring Dr: Fior Lozada TUBE FILLER Status: REG CLI Ordering Dr: Date: Location: PSN Sex: M C COMPLETE PULMONARY FUNCTION TEST INTERPRETATION Brief HPI: Patient is a 77 year old male, currently under the care of Fior Lozada, who presents to [facility] for complete pulmonary function tests secondary to [...] MD Date Dictated: 08/12/171441 Date Transcribed: 08/12/171441 Entry Engineer: LITA Signed CBC W/DIFF, AUTOMATED Collected: 07/30/2017 Status: F Source: [place] 9:25 AM [facility] REPOSITORY TYPE CODE TESTS RESULT OUT OF [...] Lymph 2.98 Performed By: #### L100.0100 #### [facility] [address] [place], [address] COMPREHENSIVE METABOLIC Collected: 07/30/2017 Status: F Source: [facility] 9:25 AM [facility] REPOSITORY TYPE CODE TESTS RESULT OUT OF [...] 9 Performed By: #### L500.4050, L501.9520 #### [facility] [address] [place], [place], [address] THYROID STIM HORMONE Collected: 07/30/2017 Status: F Source: [place] (TSH) 9:25 AM [facility] REPOSITORY TYPE CODE TESTS RESULT OUT OF RANGE REFERENCE UNITS LAB L501.9520 0.358-3.74 uIU/mL Normal TSH 2.11 Performed By: #### L500.4050, L501.9520 #### [facility] [address] [facility] [place], [address] ALLERGIES ALLERGIES DATE TYPE / CODE NAME / CODE REACTION SEVERITY SOURCE 05/27/2018 Drug No Known Unknown [facility] Allergy/4160 Allergies/F00 [facility] [address](SNOMED 4462579(RXNOR Repository CT) M) ENCOUNTERS ENCOUNTERS ADMIT/DISCHARGE ACCOUNT ADMITTING ENCOUNTER LOCATION SOURCE NUMBER CLASS 07/07/2018 [id number] Ambulatory [place] [facility] 1 [facility] ing:RAD Repository 06/02/2018 [id number] Ambulatory [place] [facility] 3 [facility] ing:[facility] Repository 05/27/2018 [id number] Ambulatory BMSBuilding:B [facility] 2 [place].CF.WMO [facility] Hospital Repository 05/27/2018 [id number] Ambulatory [facility] [place] 0 [facility] Hospital ing:OMD Repository 05/24/2018 [id number] Ambulatory [place] [facility] 8 [facility] Hospital ing:CT Repository 03/02/2018/ [id number] Ambulatory BMSBuilding:B [place] 8 4 [facility] Hospital Repository 02/01/2018 [id number] Ambulatory [facility] 7 [facility] Hospital ing:POLAB3 Repository 08/21/2017/ [id number] Ambulatory BMSBuilding:B [place] 8 6 MS.W [facility] Hospital Repository 08/15/2017 [id number] Ambulatory BMSBuilding:W [facility] 5 [facility] Repository 08/14/2017 [id number] Ambulatory [place] 2 [facility] Hospital ing:PSN Repository 08/12/2017 [id number] Ambulatory [facility] [place] 9 [facility] Hospital ing:PSN Repository 08/12/2017 [id number] Ambulatory BMSBuilding:W [place] 1 [facility] Repository 07/30/2017 [id number] Ambulatory [facility] [place] 5 [facility] Hospital ing:POLAB3 Repository PAYERS PAYERS ENCOUNTER GUARANTOR PAYER SUBSCRIBER SOURCE 07/07/2018 ALONDRA T Primary ALONDRA T [place] [id number] W Insurance:LENARD SIGLERDOB: [facility] [id number] [facility] Number: [place] [id number]: 330) Date:7537-60-07GU [phone] (YB) 4852CMER[facility] [place] [address]EZ: 07/07/2018 Secondary NOT GIVENUNK [facility] Insurance:SELF PAY [facility] Number: Effective Repository Date:2018-06-30 06/02/2018 ALONDRA T Primary ALONDRA T [facility] [id number] W Insurance:LENARD SIGLERDOB: [facility] [id number] Memorial Hospital Number: Repository flakito SUN [id number]: ([phone]) Date:0712-60-64XK [phone] (HP) [address], [place] [address]RA: 06/02/2018 Secondary NOT GIVENUNK [facility] Insurance:SELF PAY [facility] Number: Effective Repository Date:2018-06-02 05/27/2018 ALONDRA T Primary ALONDRA T [place] [id number] W Insurance:LENARD SIGLERDOB: [facility] [id number] Memorial Hospital Number: Repository [place] [id number]: ([phone]) Date:6805-08-37Yh [phone] (HP) [address] [address]IV: 05/27/2018 Secondary NOT GIVENUNK [place] Insurance:SELF PAY [facility] Number: Effective Repository Date:2018-05-27 05/27/2018 ALONDRA T Primary ALONDRA T [facility] [id number] W Insurance:LENARD SIGLERDOB: [facility] [id number] Memorial Hospital Number: Repository [place] [id number]: ([phone]) Date:7303-73-48Jv [phone] (HP) [address] [address]ZP: 05/27/2018 Secondary NOT GIVENUNK [facility] Insurance:SELF PAY [facility] Number: Effective Repository Date:2016-09-09 05/24/2018 ALONDRA T Primary ALONDRA T [place] [id number] W Insurance:LENARD SIGLERDOB: [facility] [id number] Memorial Hospital Number: Repository [place] [id number]: (330) Date:8419-93-18RB [phone] (HP) [address], [place] [address]GH: 05/24/2018 Secondary NOT GIVENUNK [facility] Insurance:SELF PAY [facility] Number: Effective Repository Date:2018-04-02 03/02/2018 ALONDRA T Primary ALONDRA T [place] [id number] W Insurance:LENARD SIGLERDOB: [facility] [id number] Memorial Hospital Number: Repository [place] [id number]: ([phone]) Date:5497-56-86SW [phone] (HP) [address], [place] [address]KA: 03/02/2018 Secondary NOT GIVENUNK [place] Insurance:SELF PAY [facility] Number: Effective Repository Date:2018-02-19 02/01/2018 ALONDRA T Primary ALONDRA [place] [id number] W Insurance:LENARD SIGLERDOB: [facility] [id number] Memorial Hospital Number: Repository [place] [id number] [phone]: ([phone]) Date:5410-67-82MK [phone] (HP) [address], [place] [address]UR: 02/01/2018 Secondary NOT GIVENUNK [facility] Insurance:SELF PAY [facility] Number: Effective Repository Date:2018-02-01 08/21/2017 ALONDRA T Primary ALONDRA T [place] [id number] W Insurance:LENARD SIGLERDOB: [facility] 4851-02-27UHICommunity Memorial Hospital Number: Repository RDWJENNA pr [id number]: Date:0274-40-34FT [phone] [place], [place] -[place] () [address]UM: 08/21/2017 Secondary NOT GIVENUNK [facility] Insurance:SELF PAY [facility] Number: Effective Repository Date:2017-06-01 08/15/2017 ALONDRA T Primary ALONDRA T [facility] [id number] W Insurance:LENARD SIGLERDOB: [facility] [id number] Memorial Hospital Number: Repository flakito SUN [id number]: Date:8873-99-98Ug [phone] [address], [place] -3 (HP) [address]NK: 08/15/2017 Secondary NOT GIVENUNK [place] Insurance:SELF PAY [facility] Number: Effective Repository Date:2017-08-15 08/14/2017 Alondra T Primary Alondra T [place] [id number] W Insurance:LENARD SiglerDOB: [facility] [id number] Northwestern Hospital Number: Repository [place] [id number]: Date:5833-54-24Hu [phone] [address], [place] -[place] () [address]ID: 08/14/2017 Secondary NOT GIVENUNK [place] Insurance:SELF PAY [facility] Number: Effective Repository Date:2017-02-24 08/12/2017 Alondra T Primary Alondra T [facility] [id number] W Insurance:LENARD SiglerDOB: [facility] [id number] Northwestern Hospital Number: Repository [place] [id number]: Date:9677-76-86Ev [phone] [address], [place] -3 (HP) [address]VB: 08/12/2017 Secondary NOT GIVENUNK [place] Insurance:SELF PAY [facility] Number: Effective Repository Date:2017-02-24 08/12/2017 AOLNDRA T Primary ALONDRA T [place] [id number] W Insurance:LENARD SIGLERDOB: [facility] 7030-28-08TASCommunity Memorial Hospital Number: Repository [place] pr [id number]: Date:8140-62-28Ta [phone] [place], [place] -[place] () [address]SI: 08/12/2017 Secondary NOT GIVENUNK [place] Insurance:SELF PAY [facility] Number: Effective Repository Date:2017-08-12 07/30/2017 Alondra [place]ates Primary Alondra Mclean [id number] W Insurance:LENARD SiglerDOB: [facility] [id number] Northwestern Hospital Number: [place]ository [place] [id number]: Date:7802-57-68It [phone] [place], [place] -[place] () [address]BY: 07/30/2017 Secondary NOT GIVENUNK [place] Insurance:SELF PAY [facility] Number: Effective Repository Date:2017-07-30
== END ==
PROVIDERS: Family Provider Family Medicine Geriatric Medicine; PCP Family Medicine Geriatric Medicine; Referring Provider Internal Medicine Gastroenterology; Visit Provider Internal Medicine Gastroenterology
DX: R13.10 Dysphagia, unspecified (principal)
CPT/HCPCS: 74220

== ENCOUNTER → 2018-08-03 13:22 | Outpatient (CLI) | payer MEDICARE, SELFPAY ==
[2018-05-27 13:21] VITALS: BMI 25.6
[2018-08-03 13:46] LABS: Absolute Neutrophil Count 4.2 X10^3/uL (2.0-7.7); Basophil# 0.02 X10^3/uL; Basophil% 0.2 % (0-1); Eosinophil# 0.08 X10^3/uL; Hematocrit 45.2 % (40-54); Lymphocyte % 38.4 % (19-41); Mean Corp Hgb Conc 33.2 g/gl (32-36); Mean Corpuscular Hgb 30.9 pg (27.0-32.0); Mean Corpuscular Volume 93.2 fL (80-94); Mean Platelet Vol. 10.9 fl (6.2-12.0); Monocyte% 9.6 % (0-10); Neutrophil # 4.22 X10^3/uL (2.7-7.7); Neutrophil % 50.6 % (47-70); Platelet Count 238 K/mm3 (150-450); RBC Distribution Width CV 13.8 % (11.6-14.6); RBC Distribution Width SD 45.5 fl (35.1-43.9); Red Blood Count 4.85 M/mm3 (4.6-6.2); White Blood Count 8.3 K/mm3 (4.4-11.0)
[2018-08-03 13:47] LABS: POSITIVE COUNT NO; POSITIVE DIFFERENTIAL NO; POSITIVE MORPHOLOGY NO
[2018-08-03 14:05] LABS: Vitamin D,25 Hydroxy 30.8 ng/mL (29.95-100.01)
[2018-08-03 14:07] LABS: AST(SGOT) 16 U/L (15-37); Alanine Aminotransfer ALT/SGPT 27 U/L (16-61); Albumin, Serum 3.4 g/dL (3.2-5.0); Alkaline Phosphatase 74 U/L (45-117); Anion Gap 9 (5-15); BUN 17 mg/dL (7-18); BUN/Creat Ratio 16.3 RATIO (10-20); Calcium,Total 8.7 mg/dL (8.5-10.1); Chloride 107 mmol/L (98-107); Creatinine, Serum 1.04 mg/dL (0.70-1.30); EST Glomerular Filtration Rate 73 mL/min (>60); Est Glom Filt Rate - Afr Amer 89 mL/min (>60); Globulin 3.3 g/dL (2.2-4.2); Glucose 85 mg/dL (74-106); Potassium 4.1 mmol/L (3.5-5.1); Protein, Total 6.7 g/dL (6.4-8.2); Sodium Level 143 mmol/L (136-145); Thyroid Stim Hormone (TSH) 2.07 uIU/mL (0.358-3.74)
== END ==
PROVIDERS: Family Provider Family Medicine Geriatric Medicine; PCP Family Medicine Geriatric Medicine; Visit Provider Family Medicine Geriatric Medicine
DX: E55.9 Vitamin D deficiency, unspecified (principal); R53.83 Other fatigue
CPT/HCPCS: 36415; 80053; 82306; 84443; 85025

== ENCOUNTER → 2018-08-30 12:10 | Outpatient (CLI) | payer MEDICARE, SELFPAY ==
[2018-05-27 13:21] VITALS: BMI 25.6
--- NOTE | 2018-08-30 12:57 | RAD_ITS ---
STUDY: X-RAY CHEST REASON FOR EXAM: Male, 78 years old. 4 day history of shortness of breath. Cough and fever. TECHNIQUE: PA and lateral views of the chest. COMPARISON: Comparison is made with prior study dated July 13, 2015. FINDINGS: Hyperinflation. Increased linear markings at the lung bases worse at the right lung base suggestive of bibasilar atelectasis and/or scarring. Surgical clips are seen in the right hilar region. Stable blunting of the left costophrenic angle. Normal size heart. Normal mediastinum and shavon. Normal visualized pulmonary arteries. There is atherosclerotic calcification of the aortic arch with tortuosity. There are diffuse degenerative changes of the visualized thoracic spine. Normal visualized ribs, clavicles, and shoulders. There is no demonstrated abnormality of the visualized soft tissue structures of the upper abdomen. RAD/Chest PA and Lateral IMPRESSION: Increased markings at the lung bases reveals cough is worse at the right lung base suggesting atelectasis and/or scarring. Stable blunting of the left costophrenic angle. Electronically Signed: River Staples, at 14:16 EDT , Service support ,
[2018-08-30] MEDS: 0.9% Normal Saline 1,000 ML 999 ML IV ×2 (13:45→14:57)
[2018-08-30 14:01] LABS: White Blood Count 11.4 K/mm3 (4.4-11.0)
[2018-08-30 14:02] LABS: Absolute Neutrophil Count 8.9 X10^3/uL (2.0-7.7); Basophil# 0.01 X10^3/uL; Basophil% 0.1 % (0-1); Hematocrit 43.5 % (40-54); Hemoglobin 14.9 g/dl (13.0-16.5); Lymphocyte % 15.8 % (19-41); Mean Corp Hgb Conc 34.3 g/gl (32-36); Mean Corpuscular Volume 90.6 fL (80-94); Mean Platelet Vol. 9.8 fl (6.2-12.0); Monocyte# 0.68 X10^3/uL; Neutrophil # 8.86 X10^3/uL (2.7-7.7); Neutrophil % 77.9 % (47-70); Platelet Count 222 K/mm3 (150-450); RBC Distribution Width CV 13.1 % (11.6-14.6); RBC Distribution Width SD 43.2 fl (35.1-43.9)
[2018-08-30 14:03] LABS: POSITIVE COUNT NO; POSITIVE DIFFERENTIAL NO; POSITIVE MORPHOLOGY NO
[2018-08-30 14:18] VITALS: BMI 24.9
[2018-08-30 14:18] LABS: Anion Gap 10 (5-15); BUN 20 mg/dL (7-18); Calcium,Total 8.4 mg/dL (8.5-10.1); Chloride 100 mmol/L (98-107); EST Glomerular Filtration Rate 77 mL/min (>60); Est Glom Filt Rate - Afr Amer 93 mL/min (>60); Glucose 136 mg/dL (74-106); Potassium 3.9 mmol/L (3.5-5.1); Sodium Level 131 mmol/L (136-145)
== END ==
LOC: RAD 12:18 → MEDOUTP 13:12
PROVIDERS: Family Provider Family Medicine Geriatric Medicine; PCP Family Medicine Geriatric Medicine; Referring Provider Family Medicine Geriatric Medicine; Visit Provider Family Medicine Geriatric Medicine
DX: E86.0 Dehydration (principal); J40 Bronchitis, not specified as acute or chronic; R50.9 Fever, unspecified
CPT/HCPCS: 96360; 96361; 71046; 80048; 85025; 87633; J7030; A4216

== ENCOUNTER → 2018-08-31 10:07 | Outpatient (CLI) | payer MEDICARE, SELFPAY ==
[2018-08-30 14:18] VITALS: BMI 24.9
[2018-08-31 12:56] LABS: Anion Gap 12 (5-15); BUN 20 mg/dL (7-18); Calcium,Total 8.6 mg/dL (8.5-10.1); Chloride 102 mmol/L (98-107); Creatinine, Serum 0.91 mg/dL (0.70-1.30); EST Glomerular Filtration Rate 85 mL/min (>60); Est Glom Filt Rate - Afr Amer 103 mL/min (>60); Glucose 140 mg/dL (74-106); Potassium 4.2 mmol/L (3.5-5.1); Sodium Level 136 mmol/L (136-145)
== END ==
PROVIDERS: Family Provider Family Medicine Geriatric Medicine; PCP Family Medicine Geriatric Medicine; Visit Provider Family Medicine Geriatric Medicine
DX: E86.0 Dehydration (principal)
CPT/HCPCS: 36415; 80048

== ENCOUNTER → 2018-10-11 15:33 | Outpatient (CLI) | payer MEDICARE, SELFPAY ==
[2018-08-30 14:18] VITALS: BMI 24.9
--- NOTE | 2018-10-11 15:46 | RAD_ITS ---
STUDY: X-RAY - RIGHT SHOULDER REASON FOR EXAM: Male, 78 years old. Chronic pain TECHNIQUE: 4 view(s) of the shoulder. COMPARISON: None. FINDINGS: Normal glenohumeral articulation. Normal acromioclavicular joint. Normal acromion. Normal humeral head and visualized proximal humerus. The soft tissue structures are unremarkable. Normal visualized pulmonary apex. RAD/Shoulder min 2 Views IMPRESSION: Normal x-ray examination of the shoulder. No fracture. No calcific tendinitis or bursitis Electronically Signed: Glenn Alvarado MD at 4:20 EDT Tel , Service support ,
== END ==
PROVIDERS: Family Provider Family Medicine Geriatric Medicine; PCP Family Medicine Geriatric Medicine; Referring Provider Family Medicine Geriatric Medicine; Visit Provider Family Medicine Geriatric Medicine
DX: M75.50 Bursitis of unspecified shoulder (principal)
CPT/HCPCS: 73030

== ENCOUNTER → 2019-02-10 08:44 | Outpatient (CLI) | payer MEDICARE, SELFPAY ==
[2018-08-30 14:18] VITALS: BMI 24.9
[2019-02-10 12:27] LABS: Absolute Lymphocyte Count 2.91 X10^3/uL (0.83-4.51); Absolute Neutrophil Count 3.7 X10^3/uL (2.0-7.7); Basophil# 0.05 X10^3/uL; Basophil% 0.7 % (0-1); Eosinophil# 0.13 X10^3/uL; Eosinophils% 1.7 % (0-5); Hematocrit 42.5 % (40-54); Hemoglobin 14.1 g/dL (13.0-16.5); Lymphocyte # 2.91 X10^3/ul (4.0); Lymphocyte % 38.7 % (19-41); Mean Corp Hgb Conc 33.2 g/dL (32-36); Mean Corpuscular Hgb 30.8 pg (27.0-32.0); Mean Corpuscular Volume 92.8 fL (80-94); Monocyte# 0.67 X10^3/uL; Monocyte% 8.9 % (0-10); NRBC Flagged by Analyzer 0 % (0-5); Neutrophil # 3.71 X10^3/uL (2.7-7.7); Neutrophil % 49.5 % (47-70); Platelet Count 228 K/mm3 (150-450); RBC Distribution Width CV 12.2 % (11.6-14.6); RBC Distribution Width SD 41.7 fl (35.1-43.9); Red Blood Count 4.58 M/mm3 (4.6-6.2); White Blood Count 7.5 K/mm3 (4.4-11.0)
[2019-02-10 12:54] LABS: Vitamin D,25 Hydroxy 34.9 ng/mL (29.95-100.01)
[2019-02-10 13:01] LABS: AST(SGOT) 20 U/L (15-37); Alanine Aminotransfer ALT/SGPT 33 U/L (16-61); Albumin, Serum 3.3 g/dL (3.2-5.0); Alkaline Phosphatase 77 U/L (45-117); Anion Gap 6 (5-15); BUN 16 mg/dL (7-18); BUN/Creat Ratio 15.5 RATIO (10-20); Calcium,Total 8.8 mg/dL (8.5-10.1); Chloride 110 mmol/L (98-107); Creatinine, Serum 1.03 mg/dL (0.70-1.30); EST Glomerular Filtration Rate 74 mL/min (>60); Est Glom Filt Rate - Afr Amer 89 mL/min (>60); Globulin 3.4 g/dL (2.2-4.2); Glucose 99 mg/dL (74-106); Protein, Total 6.7 g/dL (6.4-8.2); Sodium Level 140 mmol/L (136-145); Thyroid Stim Hormone (TSH) 0.45 uIU/mL (0.358-3.74)
== END ==
PROVIDERS: Family Provider Family Medicine Geriatric Medicine; PCP Family Medicine Geriatric Medicine; Visit Provider Family Medicine Geriatric Medicine
DX: R53.83 Other fatigue (principal); E55.9 Vitamin D deficiency, unspecified
CPT/HCPCS: 36415; 80053; 82306; 84443; 85025

== ENCOUNTER → 2019-04-26 12:39 | Outpatient (CLI) | payer MEDICARE, SELFPAY ==
[2018-08-30 14:18] VITALS: BMI 24.9
--- NOTE | 2019-04-26 12:42 | RAD_ITS ---
STUDY: X-RAY - CERVICAL SPINE REASON FOR EXAM: Male, 79 years old. Neck pain and tingling TECHNIQUE: 3 view(s) of the cervical spine were obtained. COMPARISON: None FINDINGS: Normal anterior atlantoaxial articulation. Normal odontoid process. Grade 1 retrolisthesis at C3-4 and C4-5 Normal cervical lordosis. No evidence for acute fracture or subluxation.. Narrowed disc space at C3-4 through C6-7 with endplate spurring The soft tissue structures are unremarkable. RAD/Cerv Spine 2 or 3 Views IMPRESSION: Degenerative changes. No evidence for acute fracture. Electronically Signed: Agnel Jimenez MD at 16:59 EST , Service support ,
--- NOTE | 2019-04-27 13:54 | NEURO ---
NCS and/or EMG Patient Report Ordering Doctor: Solomon Freeman Chi DATE OF SERVICE: 04/27/19 Taryn Thomas is an 79-year-old male presents for electrodiagnostic testing of the upper limbs. He reports numbness and tingling in both hands, primarily the right. Electrodiagnostic findings: Right median motor nerve demonstrates prolonged distal latency with normal amplitude and reduced conduction velocity. Left median motor nerve demonstrates borderline prolonged distal latency with normal amplitude and mildly reduced conduction velocity. Normal ulnar motor response bilaterally. Prolonged median sensory latency at the wrist bilaterally. Normal ulnar and radial sensory responses. On needle EMG, 1+ fibrillations noted in the right first dorsal interosseous. All the muscles tested showed no evidence of denervation with normal motor unit action potentials. Next Electrodiagnostic assessment: This is an abnormal study in the upper limbs. 1. Electrodiagnostic findings demonstrate bilateral median mononeuropathy. This is consistent with a mild left carpal tunnel syndrome and a moderate to advanced right carpal tunnel syndrome 2. No electrodiagnostic evidence for ulnar neuropathy. 3. No electrodiagnostic evidence for cervical radiculopathy. If there are any further questions, please do not hesitate to contact me.
== END ==
PROVIDERS: Family Provider Family Medicine Geriatric Medicine; PCP Family Medicine Geriatric Medicine; Referring Provider Family Medicine Geriatric Medicine; Visit Provider Family Medicine Geriatric Medicine
DX: M54.2 Cervicalgia (principal)
CPT/HCPCS: 72040

== ENCOUNTER → 2019-04-27 09:42 | Outpatient (CLI) | payer MEDICARE, SELFPAY ==
[2018-08-30 14:18] VITALS: BMI 24.9
== END ==
PROVIDERS: Family Provider Family Medicine Geriatric Medicine; PCP Family Medicine Geriatric Medicine; Referring Provider Family Medicine Geriatric Medicine; Visit Provider Family Medicine Geriatric Medicine
DX: R20.0 Anesthesia of skin (principal); R20.2 Paresthesia of skin
CPT/HCPCS: 95886; 95911

== ENCOUNTER → 2019-05-23 14:18 | Outpatient (CLI) | payer MEDICARE, SELFPAY ==
[2018-08-30 14:18] VITALS: BMI 24.9
--- NOTE | 2019-05-23 14:24 | MRI_ITS ---
STUDY: MRI CERVICAL SPINE WITHOUT CONTRAST REASON FOR EXAM: Male, 79 years old. Spinal stenosis, history of lung cancer TECHNIQUE: Standardized fat and water weighted pulse sequences were obtained in the sagittal and axial planes. COMPARISON: Plain films 26 April 2019 FINDINGS: Craniocervical junction is intact and aligned. There is multilevel grade 1 degenerative anterolisthesis and retrolisthesis, measuring less than 2 mm at each level. Marrow is normal with minor superimposed subchondral degenerative changes. Paraspinal soft tissues are intact. There is mild spondylotic thecal sac stenosis at C3-C4, C4-C5, without cord compression. There are multilevel scattered bilateral severe and moderate foraminal stenoses. Spinal cord is normal in size, shape and signal. MRI/Spine Cervical (Routine) IMPRESSION: 1. Age-appropriate spondylosis. 2. No cord compression. 3. Multilevel foraminal stenoses bilaterally. Electronically Signed: Kaileyfran Gena, at 16:53 EST Tel , Service support ,
== END ==
PROVIDERS: Family Provider Family Medicine Geriatric Medicine; PCP Family Medicine Geriatric Medicine; Referring Provider Family Medicine Geriatric Medicine; Visit Provider Family Medicine Geriatric Medicine
DX: M48.02 Spinal stenosis, cervical region (principal)
CPT/HCPCS: 72141

== ENCOUNTER → 2019-05-25 12:59 | Outpatient (CLI) | payer MEDICARE, SELFPAY ==
[2018-08-30 14:18] VITALS: BMI 24.9
--- NOTE | 2019-05-25 13:01 | CT_ITS ---
STUDY: CT CHEST WITH CONTRAST REASON FOR EXAM: Male, 79 years old. Lung cancer. Resection. RADIATION DOSAGE (If Supplied By Facility): CTDIvol = ( 13.03 ) mGy, DLP = ( 385.33 ) mGycm TECHNIQUE: Transaxial imaging was performed following intravenous administration of 100ML- ISOVUE 370. Multiplanar coronal and sagittal images were reformatted. Individualized dose optimization techniques were used for this CT. COMPARISON: May 14, 2016 and May 24, 2018 FINDINGS: There is emphysema of the lungs with fibrotic densities. There is left upper lobe resection with volume loss. There is new patchy groundglass and airspace consolidation in the left lung base. There is no demonstrated pleural abnormality. There are calcifications of the coronary arteries. Normal mediastinum. Postoperative changes of the left hilum. Normal enhanced pulmonary arteries. There is atherosclerotic calcification of the aortic arch with tortuosity and elongation of the aortic arch and descending thoracic aorta. There are multi-level degenerative changes of the thoracic spine. There is no demonstrated abnormality of the visualized upper abdomen. CT/Chest WITH Contrast IMPRESSION: Emphysema. Left lower lung infiltrate. Postoperative change. Electronically Signed: Shimon Spring MD at 21:04 EST , Service support ,
--- NOTE | 2019-05-25 13:02 | CT_ITS ---
STUDY: CT BRAIN WITHOUT CONTRAST REASON FOR EXAM: Male, 79 years old. Right arm numbness RADIATION DOSAGE (If Supplied By Facility): CTDIvol = ( 44.99 ) mGy, DLP = ( 829.85 ) mGycm TECHNIQUE: Transaxial CT imaging of the brain was performed without administration of intravenous contrast material. Individualized dose optimization techniques were used for this CT. COMPARISON: MRI May 10, 2015 FINDINGS: Normal soft tissue structures. Normal calvarium. There is mild cerebral atrophy with widening of the extra-axial spaces and ventricular dilatation. There are areas of decreased attenuation within the white matter tracts of the supratentorial brain, consistent with microvascular disease changes. Normal basal ganglia and thalami. Normal brainstem. Normal cerebellum. There is no intracranial hemorrhage. There are no findings of an acute ischemic infarction. Normal visualized paranasal sinuses. CT/Brain/Head without Contrast IMPRESSION: Chronic involutional changes of the brain. No hemorrhage. Electronically Signed: Shimon Spring MD at 20:59 EST , Service support ,
[2019-05-25 13:20] LABS: CREATININE FINGERSTICK 0.8 mg/dL (0.70-1.30); EGFR FINGERSTICK > 60.0000 mL/min (>60)
== END ==
PROVIDERS: Family Provider Family Medicine Geriatric Medicine; PCP Family Medicine Geriatric Medicine; Referring Provider Internal Medicine Medical Oncology; Visit Provider Internal Medicine Medical Oncology
DX: R20.2 Paresthesia of skin (principal); C34.90 Malignant neoplasm of unspecified part of unspecified bronchus or lung
CPT/HCPCS: 70450; 71260; Q9967; A4216

== ENCOUNTER 2019-06-27 09:30 | Outpatient (RCR) | payer MEDICARE, SELFPAY ==
[2018-08-30 14:18] VITALS: BMI 24.9
--- NOTE | 2019-05-16 13:47 | HP.PTEVAL_ITS ---
Patient's Visit Information ALONDRA THORNTON is a 79 year old M referred to Physical Therapy by Solomon Freeman MD with a diagnosis of cervical stenosis. Date of Evaluation: 05/16/19 Physical Therapist: Ric Chadwick, DPT, OCS, CSCS - Visit Plan Frequency: 2-3x /Week Duration: 2-4 Weeks Plan: 2-3x/week for 2-4 for. 1. R sTM neck and neck ROM emphasizing l SB and manual traction. 2. strength neck adn posture. - Subjective Findings: I got a stupid arm on the right side. Tingled bad a couple weeks ago adn was waking him up at night. It still tingles. Started gradually over time. No problem one month ago. Still tingles all the time but less severe. It is the whole arm. still feels strong. Did electrical test with needles adn is nto CTS. Neck is also a little stiff and wasn't like that prior. Constant slight stiffness. Sleep is OK. Does not work, is retired from [employer]. 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 It is still getting done but has been short of breath whcih limits him and he lost part of left lung, COPD. Basic ADLS ae getting done adn arm is an annoyance. Was keeping him awake early on as hand hurt. Doctor gave four shots of prensione adn the like in his rear end adn a shot in the wrist the latter of whcih did not help. Overall is 75% better overall. - Pain R arm Pain Intensity (Out of 10): 3 Pain Intensity Range: 3, 4 - Objective Walks normal adn transfers normal. Posture is kyphosis in T/S and protruded chin, elevated scapula. Scapula move well except retraction min limited. c/s AROM 70 L rotation adn 60 R rotation with pain, 45 ext, mod deficits in SB with pain R side with R SB. reflexes 2/3 bi and tri. Sensation UE WNL to gross li ght touch but tingly R UE. Strength B UE WNL and symmetrical withotu myotomal problems, 4/5. Shoulder flexion limited to 115 stiffness B not painful. Tender to palpation R UT and paraspianls in neck. - c/s compression test. repeated motion testing: Start R tingling 3/10. Protrusion: makes dizzy and NE on tingling. repeated retraction x 15:NE, stretches back of neck. R SB c/s :W tingling. L SB c/s: NE. . - VAT - Goals Goal 1:: Abolish tingling R UE and neck pain by 90% Goal Time Frame: 4-6 Weeks Goal 2:: Pt I appropr HEP to minimize future problems. Goal Time Frame: 4-6 Weeks Goal 3:: Neck oswestry <10% disability. Goal Time Frame: 4-6 Weeks - Rehabilitation Potential Physical Therapy Diagnosis: cervical stenosis and degeneration Rehabilitation Potential: Fair - Anticipated Interventions Patient/Client Instruction: Educate patient on: Condition, Plan of Care For the Purpose of:: To decrease pain, To increase ROM, To increase tolerance to activity/condition/position, To improve ability of physical actions for home/community/work/leisure, To improve gait and locomotor functions Therapeutic Exercise to Include: Strength training, Postural training, Flexibilty training, Passive ROM, Active ROM For the Purpose of:: To decrease pain, To improve muscle performance and motor function, To increase tolerance to activity/condition/position, To improve ability of physical actions for home/community/work/leisure Manual Therapy Techniques to Include: Soft tissue mobilization For the Purpose of:: To increase ROM Thermo therapy (hot pack): Yes For the Purpose of:: To improve nutrient delivery to tissue Thank you for the opportunity to evaluate your patient. For Medicare and Medicare HMO plans, please review the plan of care and approve it. It will need to be FAXED BACK to us at [phone] for Medicare purposes. For Medicare only, by signing this I certify the plan of care. Please let me know if there are questions or concerns regarding this plan of care. Physician Signature: Date:
--- NOTE | 2019-06-06 09:55 | HP.PTREVAL_ITS ---
Solomon Freeman MD, It has been my pleasure to treat ALONDRA THORNTON over the last 6 visits for cervical stenosis. Please see the progress note below for an update on the physical therapy plan of care! Subjective: Not much better. Still has tingling down R arm constantly. About the same as at start. Treatment doesn't help. Doing HEP 2x/day. He will see pain managemnt doctor July 06. Objective/Function: 45 ext, 14 SB B, and 60 rotatipon B without pain. No movements or positions change tignling in R UE today. Posture is still forward head but can retract with VC. UE AROM and strength WNL and without myotomal abnormalities Plan Plan: 2x/week for 3 more weeks... please work on cervical and postural strength to HEP and trial of ICT gently at first adn monitor tingling. Pt to pain management in mid June and will need another update prior. Appropriate to continue PT toward same goals getting more aggressive with traction and progressing to strenghening. Fair prognosis Goals Goal 1:: Abolish tingling R UE and neck pain by 90% Goal Time Frame: 4-6 Weeks Goal Progress: Not Progressing Goal 2:: Pt I appropr HEP to minimize future problems. Goal Time Frame: 4-6 Weeks Goal Progress: ? Goal 3:: Neck oswestry <10% disability. Goal Time Frame: 4-6 Weeks Goal Progress: Not Progressing Anticipated Interventions Patient/Client Instruction: Educate patient on: Condition, Plan of Care For the Purpose of:: To decrease pain, To increase ROM, To increase tolerance to activity/condition/position, To improve ability of physical actions for home/community/work/leisure, To improve gait and locomotor functions Therapeutic Exercise to Include: Strength training, Postural training, Flexibilty training, Passive ROM, Active ROM For the Purpose of:: To decrease pain, To improve muscle performance and motor function, To increase tolerance to activity/condition/position, To improve ability of physical actions for home/community/work/leisure Manual Therapy Techniques to Include: Soft tissue mobilization For the Purpose of:: To increase ROM Thermo therapy (hot pack): Yes For the Purpose of:: To improve nutrient delivery to tissue Please do not hesitate to contact me at [phone] by phone or Fax: if you have questions or concerns regarding this new plan of care! Sincerely, Ric Chadwick, DPT, OCS, CSCS
--- NOTE | 2019-06-27 10:18 | HP.PTDCSUM ---
HP - PT D/C Summary It has been my pleasure to treat ALONDRA THORNTON under orders from Solomon Freeman MD, for the diagnosis of cervical stenosis for a total of 12 visit(s). Discharge Date: 06/27/19 Please see the following information for a summary of their discharge status. - Subjective Subjective: Im in pretty good shape. Quite a bit better. Arms not tingling anymore. Been a while since it tingled. exercises adn traction helped. No pain. To doctor in July. - Pain R arm Pain Intensity (Out of 10): 0 neck pain Pain Intensity (Out of 10): 1 - Overall Improvement % Improvement: 90 - Objective Objective/Function: Full UE AROM without pain, strength 4+/5 without myotomal abnormalities. cervical ROM 60 B rotations and 55 ext without pain or tingling. OVERALL DOING WELL. - Goals Goal 1:: Abolish tingling R UE and neck pain by 90% Goal Progress: Goal Met Goal 2:: Pt I appropr HEP to minimize future problems. Goal Progress: Goal Met Goal 3:: Neck oswestry <10% disability. Goal Progress: Goal Met - Plan Plan: D/C - D/C Information Discharge Comments: DOING WELL, TINGLING ABOLISHED. PT WILL SEE DOCTOR NEXT MONTHA DN CALL PRIOR IF IT RETURNS. If there are questions or concerns regarding this patient's physical therapy, please feel free to call me at [phone]. Thank you for the referral of this patient. Sincerely, Ric Chadwick, DPT, OCS, CSCS
== END 2019-06-27 19:00 | disposition home or self-care (01) ==
LOC: PT 09:30
PROVIDERS: Family Provider Family Medicine Geriatric Medicine; PCP Family Medicine Geriatric Medicine; Referring Provider Family Medicine Geriatric Medicine; Visit Provider Family Medicine Geriatric Medicine
DX: M48.02 Spinal stenosis, cervical region (principal)
CPT/HCPCS: 97012; 97110; 97140; 97162; 97530

== ENCOUNTER → 2019-08-11 09:06 | Outpatient (CLI) | payer MEDICARE, SELFPAY ==
[2019-05-30 14:29] VITALS: BMI 24.7
[2019-08-11 12:29] LABS: Absolute Lymphocyte Count 3.09 X10^3/uL (0.83-4.51); Basophil# 0.05 X10^3/uL; Basophil% 0.6 % (0-1); Eosinophil# 0.15 X10^3/uL; Eosinophils% 1.8 % (0-5); Hematocrit 45.1 % (40-54); Hemoglobin 14.9 g/dL (13.0-16.5); Lymphocyte # 3.09 X10^3/ul (4.0); Lymphocyte % 37.8 % (19-41); Mean Corpuscular Hgb 30.4 pg (27.0-32.0); Mean Platelet Vol. 10.5 fl (6.2-12.0); Monocyte# 0.85 X10^3/uL; Monocyte% 10.4 % (0-10); NRBC Flagged by Analyzer 0 % (0-5); Neutrophil # 4.01 X10^3/uL (2.7-7.7); Platelet Count 237 K/mm3 (150-450); RBC Distribution Width CV 13.2 % (11.6-14.6); RBC Distribution Width SD 44.8 fl (35.1-43.9); White Blood Count 8.2 K/mm3 (4.4-11.0)
[2019-08-11 12:40] LABS: ALB/GLOB Ratio 0.9 RATIO (0.9-2.4); AST(SGOT) 21 U/L (15-37); Alanine Aminotransfer ALT/SGPT 30 U/L (16-61); Albumin, Serum 3.2 g/dL (3.2-5.0); Alkaline Phosphatase 77 U/L (45-117); Anion Gap 5 (5-15); BUN 16 mg/dL (7-18); BUN/Creat Ratio 13.8 RATIO (10-20); Calcium,Total 8.7 mg/dL (8.5-10.1); Chloride 111 mmol/L (98-107); Creatinine, Serum 1.16 mg/dL (0.70-1.30); EST Glomerular Filtration Rate 64 mL/min (>60); Est Glom Filt Rate - Afr Amer 78 mL/min (>60); Globulin 3.5 g/dL (2.2-4.2); Glucose 97 mg/dL (74-106); Protein, Total 6.7 g/dL (6.4-8.2); Sodium Level 142 mmol/L (136-145); Thyroid Stim Hormone (TSH) 2.93 uIU/mL (0.358-3.74); Vitamin D,25 Hydroxy 41.8 ng/mL (29.95-100.01)
== END ==
PROVIDERS: PCP Family Medicine Geriatric Medicine; Visit Provider Family Medicine Geriatric Medicine
DX: E55.9 Vitamin D deficiency, unspecified (principal); R53.83 Other fatigue
CPT/HCPCS: 36415; 80053; 82306; 84443; 85025

== ENCOUNTER → 2019-08-29 07:09 | Outpatient (CLI) | payer MEDICARE, SELFPAY ==
[2019-05-30 14:29] VITALS: BMI 24.7
--- NOTE | 2019-08-29 07:15 | CT_ITS ---
STUDY: CT CHEST WITH CONTRAST REASON FOR EXAM: Male, 79 years old. NON SMALL CELL SANDEEP CA-MONITORING -- LEFT UPPER LOBE LUNG REMOVED -- NO CHEMO/RAD TX RADIATION DOSAGE (If Supplied By Facility): CTDIvol = ( 11.17 ) mGy, DLP = ( 354.64 ) mGycm TECHNIQUE: Transaxial imaging was performed following intravenous administration of IV 100mL Isovue-300. Multiplanar coronal and sagittal images were reformatted. Individualized dose optimization techniques were used for this CT. COMPARISON: CT chest May 25, 2019 FINDINGS: There is a pattern of emphysematous change throughout the lungs. This is seen in the right greater than left lung. There is postoperative change within the left lower lobe. On prior study there are multiple patchy nodular inflammatory appearing infiltrates. There is a minimal residual focus of nodular density within the left lower lobe image #90 which is unchanged since prior study in size measuring 6.3 x 7.5 mm similar to the prior study. There is adjacent scarring. Particular There is no demonstrated pleural abnormality. There is borderline cardiac enlargement. There are minimal coronary calcifications. There is a lymph node measuring 1.2 cm in the mediastinum similar to prior study. There are several subcentimeter AP window lymph nodes. There is postoperative change in the left hilum. Normal enhanced pulmonary arteries. The aorta is tortuous and partially calcified. There are multi-level degenerative changes of the thoracic spine. Liver is fatty infiltrated. There is a small hiatal hernia measuring 1.[address]/Chest WITH Contrast IMPRESSION: Improved aeration of the left lower lobe resolved multifocal inflammatory nodules within the left lower lobe. Minimal remaining well-circumscribed 6.3 x 7.5 mm nodule in the left lower lobe for which follow-up is recommended in 6 months. Advanced pulmonary emphysema chronic obstructive pulmonary disease status post left lobectomy. Stable mediastinal lymph node measuring 1.2 cm. Mild cardiomegaly. Degenerative changes of thoracolumbar spine. Hepatic steatosis Small hiatal hernia. Electronically Signed: Divine Brito MD at 14:29 EDT Tel , Service support ,
== END ==
PROVIDERS: Family Provider Family Medicine Geriatric Medicine; PCP Family Medicine Geriatric Medicine; Referring Provider Internal Medicine Medical Oncology; Visit Provider Internal Medicine Medical Oncology
DX: C34.12 Malignant neoplasm of upper lobe, left bronchus or lung (principal)
CPT/HCPCS: 71260; Q9967

== ENCOUNTER → 2019-11-08 08:24 | Outpatient (CLI) | payer MEDICARE, SELFPAY ==
[2019-11-08 07:34] VITALS: BMI 25.7
--- NOTE | 2019-11-08 08:26 | RAD_ITS ---
STUDY: X-RAY CHEST REASON FOR EXAM: Male, 79 years old. COPD, -- increasing SOB, cough -- ? pneumonia TECHNIQUE: Single AP portable view of the chest. COMPARISON: 08/30/2018 FINDINGS: There is scarring in the left lung base. There is decreased size of the left lung most likely due to prior left upper lobectomy. There is no demonstrated pleural abnormality. Sternal cerclage wires and vascular clips are present from a prior sternotomy and coronary artery bypass graft procedure (CABG). Normal mediastinum and shavon. Normal visualized pulmonary arteries. There is atherosclerotic calcification of the aortic arch with tortuosity. Normal visualized thoracic spine. There is degenerative osteoarthritis of the bilateral shoulders. There is no demonstrated abnormality of the visualized soft tissue structures of the upper abdomen. RAD/Chest PA and Lateral IMPRESSION: There is scarring in the left lung base. There is decreased size of the left lung most likely due to prior left upper lobectomy. Electronically Signed: Kobi Magallon, at 14:47 EDT Tel , Service support ,
== END ==
PROVIDERS: PCP Family Medicine Geriatric Medicine; Referring Provider Internal Medicine Critical Care Medicine; Visit Provider Internal Medicine Critical Care Medicine
DX: J44.9 Chronic obstructive pulmonary disease, unspecified (principal); R06.00 Dyspnea, unspecified
CPT/HCPCS: 71046

== ENCOUNTER → 2019-12-12 09:09 | Outpatient (CLI) | payer MEDICARE, SELFPAY ==
[2019-12-12 08:00] VITALS: BMI 25.0
[2019-12-12 09:24] LABS: Absolute Lymphocyte Count 3.03 X10^3/uL (0.83-4.51); Absolute Neutrophil Count 3.9 X10^3/uL (2.0-7.7); Basophil# 0.07 X10^3/uL; Basophil% 0.9 % (0-1); Eosinophil# 0.25 X10^3/uL; Eosinophils% 3.2 % (0-5); Hematocrit 45.6 % (40-54); Hemoglobin 15.2 g/dL (13.0-16.5); Lymphocyte # 3.03 X10^3/ul (4.0); Lymphocyte % 38.4 % (19-41); Mean Corp Hgb Conc 33.3 g/dL (32-36); Mean Corpuscular Hgb 30.5 pg (27.0-32.0); Mean Corpuscular Volume 91.6 fL (80-94); Mean Platelet Vol. 9.3 fl (6.2-12.0); Monocyte# 0.66 X10^3/uL; Monocyte% 8.4 % (0-10); NRBC Flagged by Analyzer 0 % (0-5); Neutrophil # 3.86 X10^3/uL (2.7-7.7); Neutrophil % 48.8 % (47-70); Platelet Count 292 K/mm3 (150-450); RBC Distribution Width CV 13.2 % (11.6-14.6); RBC Distribution Width SD 44.9 fl (35.1-43.9); Red Blood Count 4.98 M/mm3 (4.6-6.2); White Blood Count 7.9 K/mm3 (4.4-11.0)
[2019-12-15 16:08] LABS: ANTINUCLEAR ANTIBODIES DIRECT Positive (Negative); Alternaria alternata <0.10 kU/L (Class 0); Anti-Centromere B Ab <0.2 AI (0.0-0.9); Anti-Chromatin <0.2 AI (0.0-0.9); Anti-Jo <0.2 AI (0.0-0.9); Anti-Scleroderma-70 AB <0.2 AI (0.0-0.9); Bermuda Grass <0.10 kU/L (Class 0); Bluegrass, Kentucky <0.10 kU/L (Class 0); Cat Hair/Dander, Standard <0.10 kU/L (Class 0); D farinae Mite 0.19 kU/L (Class 0/I); D pteronyssinus 0.22 kU/L (Class 0/I); Dog Epithelia <0.10 kU/L (Class 0); Elm, American White <0.10 kU/L (Class 0); Mouse Urine <0.10 kU/L (Class 0); Oak, White <0.10 kU/L (Class 0); Plantain, English <0.10 kU/L (Class 0); RNP Ab <0.2 AI (0.0-0.9); Ragweed, Short/Common <0.10 kU/L (Class 0); SJOGREN'S Anti-SS-A test < 0.2 AI (0.0-0.9); SJOGREN'S Anti-SS-B test < 0.2 AI (0.0-0.9); Smith Ab <0.2 AI (0.0-0.9)
[2019-12-16 00:45] LABS: Anti-dsDNA Ab 21 IU/mL (0-9)
[2019-12-16 03:06] LABS: Aspirgillus flavus Negative (Neg:<1:1); Aspirgillus fumigatus Negative (Neg:<1:1); Aspirgillus niger Negative (Neg:<1:1)
[2019-12-16 04:15] LABS: Immunoglobulin E 192 IU/mL (6-495)
== END ==
PROVIDERS: PCP Family Medicine Geriatric Medicine; Referring Provider Nurse Practitioner Acute Care; Visit Provider Nurse Practitioner Acute Care
DX: J44.1 Chronic obstructive pulmonary disease with (acute) exacerbation (principal)
CPT/HCPCS: 36415; 82785; 85025; 86003; 86038; 86225; 86235; 86606; 87070; 87205; 87635; G2023; U0003

== ENCOUNTER → 2019-12-27 09:36 | Outpatient (CLI) | payer MEDICARE, SELFPAY ==
[2019-12-27 08:01] VITALS: BMI 24.7
[2019-12-29 17:44] LABS: Cytoplasmic Ab (C-ANCA) <1:20 titer (Neg:<1:20)
[2019-12-29 18:17] LABS: Perinuclear Ab (P-ANCA) 1:40 titer (Neg:<1:20)
== END ==
PROVIDERS: PCP Family Medicine Geriatric Medicine; Referring Provider Nurse Practitioner Acute Care; Visit Provider Nurse Practitioner Acute Care
DX: J44.9 Chronic obstructive pulmonary disease, unspecified (principal)
CPT/HCPCS: 36415; 86256

== ENCOUNTER → 2020-01-17 12:47 | Outpatient (CLI) | payer MEDICARE, SELFPAY ==
[2019-12-27 08:01] VITALS: BMI 24.7
--- NOTE | 2020-01-19 11:59 | PFT ---
INTRODUCTION: The patient is an 79-year-old male that presents for pulmonary function studies secondary to a diagnosis of COPD. Respiratory therapy reports good patient effort. Bronchodilators were used during testing. INTERPRETATION: Forced expiration spirometry demonstrates the presence of a moderately severe large airways obstructive ventilatory defect. There was a significant response to aerosolized bronchodilators noted. Spirograms are of good quality and do not plateau indicating slow emptying of the lungs. Body plethysmography was performed and revealed an elevated RV to 126% of predicted, indicative of underlying air trapping. Diffusing capacity by single breath CO is preserved at 86% of predicted. When compared to previous pulmonary function studies from 2018, there has been a significant improvement in DLCO. IMPRESSION: Partially reversible moderately severe large airways obstructive ventilatory defect with associated air trapping. Diffusing capacity is preserved.
== END ==
PROVIDERS: PCP Family Medicine Geriatric Medicine; Referring Provider Internal Medicine Critical Care Medicine; Visit Provider Internal Medicine Critical Care Medicine
DX: J44.9 Chronic obstructive pulmonary disease, unspecified (principal)
CPT/HCPCS: 94060; 94726; 94729

== ENCOUNTER → 2020-01-18 08:40 | Outpatient (CLI) | payer MEDICARE, SELFPAY ==
[2019-12-27 08:01] VITALS: BMI 24.7
[2020-01-18 09:00] VITALS: PULSE 63; PULSE 68; PULSE 71; PULSE 80; PULSE 84; PULSE 93; PULSE 94; PULSE 95; O2SAT 92; O2SAT 94; O2SAT 97
--- NOTE | 2020-01-19 12:19 | PCM.PSN.6M ---
PSN 6 Minute Walk Test - 6 Minute Walk Test 6 Minute Walk Test: 6 Minute Walk Test PSN:6-Minute Walk Test Start: 01/18/20 09:17 Freq: Status: Active Protocol: RESP.6MINW Document 01/18/20 09:00 (Rec: 01/18/20 09:20 [id number]) 6 Minute Walk Test Date Performed 01/18/20 Time Performed 09:00 Height 5 ft 9 in Weight: 163 lb Weight in Pounds 163.[address]: Renzo Fitzpatrick FIO2 (% Oxygen) 21 Assistive device used: None Pre-test Oxygen Delivery Method Room Air Pulse Ox (%) 97 Pulse Rate (60-100 beats/min) 63 Dyspnea Jonh Scale (0-10) 0 Exertion Jonh Scale (6-20) 6 1st minute Oxygen Delivery Method Room Air Pulse Ox (%) 94 Pulse Rate (60-100 beats/min) 68 2nd minute Oxygen Delivery Method Room Air Pulse Ox (%) 92 Pulse Rate (60-100 beats/min) 80 3rd minute Oxygen Delivery Method Room Air Pulse Ox (%) 92 Pulse Rate (60-100 beats/min) 84 4th minute Oxygen Delivery Method Room Air Pulse Ox (%) 92 Pulse Rate (60-100 beats/min) 93 5th minute Oxygen Delivery Method Room Air Pulse Ox (%) 92 Pulse Rate (60-100 beats/min) 94 6th minute Oxygen Delivery Method Room Air Pulse Ox (%) 92 Pulse Rate (60-100 beats/min) 95 Post-test Oxygen Delivery Method Room Air Pulse Ox (%) 94 Pulse Rate (60-100 beats/min) 71 Dyspnea Jonh Scale (0-10) 2 Exertion Jonh Scale (6-20) 11 Full Laps Walked 19 Partial Lap, Number of Tiles Walked 0 Total Distance Walked (ft) 1121 - Interpretation Interpretation: The patient ambulated 1121 feet over the course of 6 minutes beginning on room air without assistive devices or breaks. Pretesting oxygen saturation was noted to be 97% on room air. With ambulation, the steve oxygen saturation was 92%. This represents a significant exertional oxygen desaturation. - Recommendations Recommendations: There is no indication for the use of supplemental oxygen at this time. However, close interval follow-up is recommended, given the degree of oxygen desaturation noted during this study.
== END ==
PROVIDERS: PCP Family Medicine Geriatric Medicine; Referring Provider Internal Medicine Critical Care Medicine; Visit Provider Internal Medicine Critical Care Medicine
DX: J44.9 Chronic obstructive pulmonary disease, unspecified (principal)
CPT/HCPCS: 94618

== ENCOUNTER → 2020-02-15 09:37 | Outpatient (CLI) | payer MEDICARE, SELFPAY ==
[2019-12-27 08:01] VITALS: BMI 24.7
[2020-02-15 10:57] LABS: Absolute Lymphocyte Count 3.85 X10^3/uL (0.83-4.51); Absolute Neutrophil Count 4.4 X10^3/uL (2.0-7.7); Basophil# 0.05 X10^3/uL; Basophil% 0.5 % (0-1); Eosinophil# 0.11 X10^3/uL; Eosinophils% 1.2 % (0-5); Hematocrit 44.9 % (40-54); Hemoglobin 14.6 g/dL (13.0-16.5); Lymphocyte # 3.85 X10^3/ul (4.0); Lymphocyte % 41.9 % (19-41); Mean Corp Hgb Conc 32.5 g/dL (32-36); Mean Corpuscular Hgb 30.8 pg (27.0-32.0); Mean Corpuscular Volume 94.7 fL (80-94); Mean Platelet Vol. 10.2 fl (6.2-12.0); Monocyte# 0.78 X10^3/uL; Monocyte% 8.5 % (0-10); NRBC Flagged by Analyzer 0 % (0-5); Neutrophil # 4.36 X10^3/uL (2.7-7.7); Neutrophil % 47.6 % (47-70); Platelet Count 248 K/mm3 (150-450); RBC Distribution Width CV 13.2 % (11.6-14.6); RBC Distribution Width SD 46.2 fl (35.1-43.9); Red Blood Count 4.74 M/mm3 (4.6-6.2); White Blood Count 9.2 K/mm3 (4.4-11.0)
[2020-02-15 11:42] LABS: Vitamin D,25 Hydroxy 57.6 ng/mL
[2020-02-15 11:51] LABS: AST(SGOT) 20 U/L (15-37); Alanine Aminotransfer ALT/SGPT 29 U/L (16-61); Albumin, Serum 3.5 g/dL (3.2-5.0); Alkaline Phosphatase 73 U/L (45-117); Anion Gap 2 (5-15); BUN 18 mg/dL (7-18); BUN/Creat Ratio 18.1 RATIO (10-20); Calcium,Total 8.7 mg/dL (8.5-10.1); Chloride 107 mmol/L (98-107); EST Glomerular Filtration Rate 77 mL/min (>60); Est Glom Filt Rate - Afr Amer 93 mL/min (>60); Globulin 3.5 g/dL (2.2-4.2); Glucose 88 mg/dL (74-106); Sodium Level 138 mmol/L (136-145); Thyroid Stim Hormone (TSH) 1.67 uIU/mL (0.358-3.74)
== END ==
PROVIDERS: PCP Family Medicine Geriatric Medicine; Referring Provider Family Medicine Geriatric Medicine; Visit Provider Family Medicine Geriatric Medicine
DX: E55.9 Vitamin D deficiency, unspecified (principal); R53.83 Other fatigue
CPT/HCPCS: 36415; 80053; 82306; 84443; 85025

== ENCOUNTER → 2020-06-25 14:05 | Outpatient (CLI) | payer MEDICARE, SELFPAY ==
[2020-02-16 05:43] VITALS: BMI 24.3
--- NOTE | 2020-06-25 14:10 | RAD_ITS ---
STUDY: X-RAY CHEST REASON FOR EXAM: Male, 80 years old. SOB X 2 WEEKS TECHNIQUE: PA and lateral views of the chest. COMPARISON: Comparison is made with prior study dated 11/08/2019. FINDINGS: Hyperinflation. Stable blunting of the left costophrenic angle. Normal size heart. Normal mediastinum and shavon. Normal visualized pulmonary arteries. Normal visualized aortic arch and descending thoracic aorta. There are diffuse degenerative changes of the visualized thoracic spine. Normal visualized ribs, clavicles, and shoulders. There is no demonstrated abnormality of the visualized soft tissue structures of the upper abdomen. RAD/Chest PA and Lateral IMPRESSION: Hyperinflation. Electronically Signed: River Staples, at 10:09 EST , Service support ,
== END ==
PROVIDERS: PCP Family Medicine Geriatric Medicine; Referring Provider Family Medicine Geriatric Medicine; Visit Provider Family Medicine Geriatric Medicine
DX: R06.02 Shortness of breath (principal)
CPT/HCPCS: 71046

== ENCOUNTER → 2020-06-26 18:03 | Outpatient (CLI) | payer MEDICARE, SELFPAY ==
[2020-02-16 05:43] VITALS: BMI 24.3
== END ==
PROVIDERS: PCP Family Medicine Geriatric Medicine; Referring Provider Family Medicine Geriatric Medicine; Visit Provider Family Medicine Geriatric Medicine
DX: R06.02 Shortness of breath (principal)
CPT/HCPCS: 87633; 87635; C9803; U0005; U0003

== ENCOUNTER 2020-07-13 11:25 | Outpatient (RCR) | payer MEDICARE, SELFPAY ==
[2020-02-16 05:43] VITALS: BMI 24.3
== END 2020-07-13 23:59 ==
LOC: IMMUN 11:25
PROVIDERS: PCP Family Medicine Geriatric Medicine; Visit Provider Family Medicine
DX: Z23 Encounter for immunization (principal)
CPT/HCPCS: 0011A; 0012A; 91301

== ENCOUNTER → 2020-07-24 10:11 | Outpatient (CLI) | payer MEDICARE, SELFPAY ==
[2020-02-16 05:43] VITALS: BMI 24.3
[2020-07-25 14:10] LABS: ANTINUCLEAR ANTIBODIES DIRECT Positive (Negative); Anti-Centromere B Ab <0.2 AI (0.0-0.9); Anti-Chromatin <0.2 AI (0.0-0.9); Anti-Jo <0.2 AI (0.0-0.9); Anti-Scleroderma-70 AB <0.2 AI (0.0-0.9); RNP Ab <0.2 AI (0.0-0.9); SJOGREN'S Anti-SS-A test < 0.2 AI (0.0-0.9); SJOGREN'S Anti-SS-B test < 0.2 AI (0.0-0.9); Smith Ab <0.2 AI (0.0-0.9)
[2020-07-25 16:08] LABS: Cytoplasmic Ab (C-ANCA) <1:20 titer (Neg:<1:20)
[2020-07-25 17:19] LABS: Perinuclear Ab (P-ANCA) <1:20 titer (Neg:<1:20)
[2020-07-25 17:20] LABS: Anti-dsDNA Ab 22 IU/mL (0-9)
== END ==
PROVIDERS: PCP Family Medicine Geriatric Medicine; Referring Provider Internal Medicine Critical Care Medicine; Visit Provider Internal Medicine Critical Care Medicine
DX: R76.8 Other specified abnormal immunological findings in serum (principal)
CPT/HCPCS: 36415; 86038; 86225; 86235; 86256

== ENCOUNTER → 2020-08-15 09:08 | Outpatient (CLI) | payer MEDICARE, SELFPAY ==
[2020-08-09 12:43] VITALS: BMI 23.6
[2020-08-15 11:56] LABS: Absolute Lymphocyte Count 3.13 X10^3/uL (0.83-4.51); Absolute Neutrophil Count 6.6 X10^3/uL (2.0-7.7); Basophil# 0.06 X10^3/uL; Basophil% 0.5 % (0-1); Eosinophil# 0.13 X10^3/uL; Eosinophils% 1.2 % (0-5); Hematocrit 42.7 % (40-54); Hemoglobin 14.2 g/dL (13.0-16.5); Lymphocyte # 3.13 X10^3/ul (4.0); Lymphocyte % 28.5 % (19-41); Mean Corp Hgb Conc 33.3 g/dL (32-36); Mean Corpuscular Hgb 30.9 pg (27.0-32.0); Mean Corpuscular Volume 92.8 fL (80-94); Monocyte# 0.92 X10^3/uL; Monocyte% 8.4 % (0-10); NRBC Flagged by Analyzer 0 % (0-5); Neutrophil # 6.64 X10^3/uL (2.7-7.7); Neutrophil % 60.3 % (47-70); Platelet Count 266 K/mm3 (150-450); RBC Distribution Width CV 14.1 % (11.6-14.6); RBC Distribution Width SD 48.4 fl (35.1-43.9)
[2020-08-15 12:26] LABS: Vitamin D,25 Hydroxy 41.8 ng/mL
[2020-08-15 12:31] LABS: ALB/GLOB Ratio 0.8 RATIO (0.9-2.4); AST(SGOT) 20 U/L (15-37); Alanine Aminotransfer ALT/SGPT 37 U/L (16-61); Albumin, Serum 2.8 g/dL (3.2-5.0); Alkaline Phosphatase 68 U/L (45-117); Anion Gap 5 (5-15); BUN 16 mg/dL (7-18); BUN/Creat Ratio 16.8 RATIO (10-20); CPK Total, Creatine Kinase 28 U/L (39-308); Calcium,Total 8.8 mg/dL (8.5-10.1); Chloride 105 mmol/L (98-107); Creatinine, Serum 0.95 mg/dL (0.70-1.30); EST Glomerular Filtration Rate 81 mL/min (>60); Est Glom Filt Rate - Afr Amer 98 mL/min (>60); Globulin 3.5 g/dL (2.2-4.2); Glucose 95 mg/dL (74-106); Potassium 3.9 mmol/L (3.5-5.1); Protein, Total 6.3 g/dL (6.4-8.2); Sodium Level 138 mmol/L (136-145); Thyroid Stim Hormone (TSH) 3.09 uIU/mL (0.358-3.74)
[2020-08-16 08:21] LABS: Myoglobin, Serum 30 ng/mL (28-72)
== END ==
PROVIDERS: PCP Family Medicine Geriatric Medicine; Visit Provider Family Medicine Geriatric Medicine
DX: E55.9 Vitamin D deficiency, unspecified (principal); R06.02 Shortness of breath; R53.83 Other fatigue
CPT/HCPCS: 36415; 80053; 82306; 82550; 83874; 84443; 84484; 85025

== ENCOUNTER → 2020-08-15 10:27 | Outpatient (CLI) | payer MEDICARE, SELFPAY ==
[2020-08-09 12:43] VITALS: BMI 23.6
--- NOTE | 2020-08-15 10:30 | CT_ITS ---
STUDY: CTA CHEST REASON FOR EXAM: Male, 80 years old. SHORT OF BREATH -- HX-COPD,LUNG CA W/ PRINCE REMOVED RADIATION DOSAGE (If Supplied By Facility): CTDIvol = ( 9.47 ) mGy, DLP = ( 317.96 ) mGycm TECHNIQUE: The examination was performed with the intravenous administration of IV 100mL Isovue-370. Post-processing of the angiographic images was performed, with multiplanar reformation and 3D reconstruction. Individualized dose optimization techniques were used for this CT. COMPARISON: Comparison is made with prior examination dated 08/29/2019. FINDINGS: Normal enhancement of the main pulmonary artery and right and left pulmonary arteries. Normal enhancement of the bilateral peripheral pulmonary arteries. There is no demonstrated pulmonary embolism. Normal thoracic aorta and visualized great vessels. There is no demonstrated aortic dissection. There are calcifications of the coronary arteries. Normal mediastinum. Normal hilar regions. Normal visualized trachea and bronchi. Hyperinflation. Emphysematous changes. Loss of volume in the left hemithorax due to prior left upper lobectomy. Patchy infiltrates are seen in the left lower lobe. Questionable spiculated nodule in the left lower lobe. Follow-up is recommended. Normal chest wall structures. There are degenerative changes of thoracic spine. Normal visualized upper abdomen. CT/CTA Chest W/WO Contrast IMPRESSION: No evidence of pulmonary embolism. Emphysema. Patchy infiltrate in the left lower lobe. Radiographic follow-up is recommended. Persistent 7 mm nodular density in the left lower lobe. Electronically Signed: River Staples MD at 11:16 EST , Service support ,
[2020-08-15 10:41] LABS: CREATININE FINGERSTICK 1.3 mg/dL (0.70-1.30)
== END ==
PROVIDERS: PCP Family Medicine Geriatric Medicine; Referring Provider Family Medicine Geriatric Medicine; Visit Provider Family Medicine Geriatric Medicine
DX: Z01.812 Encounter for preprocedural laboratory examination (principal); R06.89 Other abnormalities of breathing; E55.9 Vitamin D deficiency, unspecified; R06.02 Shortness of breath; R53.83 Other fatigue
CPT/HCPCS: 36415; 71275; 80053; 82306; 82550; 83874; 84443; 84484; 85025; Q9967

== ENCOUNTER → 2020-08-16 | Outpatient (CLI) | payer MEDICARE, SELFPAY ==
[2020-08-09 12:43] VITALS: BMI 23.6
== END | disposition home or self-care (01) ==
LOC: LABSPEC 15:47
PROVIDERS: PCP Family Medicine Geriatric Medicine; Referring Provider Family Medicine Geriatric Medicine; Visit Provider Family Medicine Geriatric Medicine
DX: R68.83 Chills (without fever) (principal)
CPT/HCPCS: 87635; C9803; U0005; U0003

== ENCOUNTER → 2020-08-21 07:45 | Outpatient (CLI) | payer MEDICARE, SELFPAY ==
[2020-08-09 12:43] VITALS: BMI 23.6
[2020-08-21 09:36] VITALS: PULSE 100; PULSE 86; PULSE 90; PULSE 95; PULSE 99; O2SAT 89; O2SAT 90; O2SAT 92; O2SAT 93; O2SAT 94
--- NOTE | 2020-08-21 13:39 | PCM.PSN.6M ---
PSN 6 Minute Walk Test - 6 Minute Walk Test 6 Minute Walk Test: 6 Minute Walk Test PSN:6-Minute Walk Test Start: 08/21/20 09:36 Freq: Status: Active Protocol: RESP.6MINW Document 08/21/20 09:36 FR (Rec: 08/21/20 09:40 FR [id number]) 6 Minute Walk Test Date Performed 08/21/20 Time Performed 08:30 Height 5 ft 9 in Weight: 71.668 kg Weight in Pounds 158.[address]: Kierra/Valentin Assistive device used: None Pre-test Oxygen Delivery Method Room Air Pulse Ox (%) 93 Pulse Rate (60-100 beats/min) 86 Dyspnea Jonh Scale (0-10) 5 Exertion Jonh Scale (6-20) 10 1st minute Oxygen Delivery Method Room Air Pulse Ox (%) 92 Pulse Rate (60-100 beats/min) 90 2nd minute Oxygen Delivery Method Room Air Pulse Ox (%) 90 Pulse Rate (60-100 beats/min) 95 3rd minute Oxygen Delivery Method Room Air Pulse Ox (%) 89 Pulse Rate (60-100 beats/min) 99 4th minute Oxygen Delivery Method Room Air Pulse Ox (%) 90 Pulse Rate (60-100 beats/min) 99 5th minute Oxygen Delivery Method Room Air Pulse Ox (%) 89 Pulse Rate (60-100 beats/min) 99 6th minute Oxygen Delivery Method Room Air Pulse Ox (%) 90 Pulse Rate (60-100 beats/min) 100 Dyspnea Jonh Scale (0-10) 5 Exertion Jonh Scale (6-20) 11 Post-test Oxygen Delivery Method Room Air Pulse Ox (%) 94 Pulse Rate (60-100 beats/min) 90 Full Laps Walked 17 Partial Lap, Number of Tiles Walked 11 Total Distance Walked (ft) 1014 - Interpretation Interpretation: The patient was able to ambulate 1014 feet over the course of 6 minutes on room air with no assistive devices or breaks. The patient did experience significant desaturation from baseline of 93% to as low as 89%. No significant tachycardia was noted. These findings are consistent with a respiratory limitation exercise tolerance. - Recommendations Recommendations: No supplemental oxygen is indicated at this time. However, patient will need to be followed closely given level of desaturation.
== END ==
PROVIDERS: PCP Family Medicine Geriatric Medicine; Referring Provider Nurse Practitioner Acute Care; Visit Provider Nurse Practitioner Acute Care
DX: J44.9 Chronic obstructive pulmonary disease, unspecified (principal)
CPT/HCPCS: 94618

== ENCOUNTER → 2020-09-07 12:37 | Outpatient (CLI) | payer MEDICARE, SELFPAY ==
[2020-09-07 12:51] LABS: Absolute Neutrophil Count 5.2 X10^3/uL (2.0-7.7); Basophil% 0.5 % (0-1); Eosinophils% 0.8 % (0-5); Hematocrit 44.1 % (40-54); Hemoglobin 14.6 g/dL (13.0-16.5); Lymphocyte % 37.2 % (19-41); Mean Corp Hgb Conc 33.1 g/dL (32-36); Mean Corpuscular Hgb 31.1 pg (27.0-32.0); Mean Platelet Vol. 9.4 fl (6.2-12.0); Monocyte% 8.2 % (0-10); Neutrophil # 5.22 X10^3/uL (2.7-7.7); Neutrophil % 52.8 % (47-70); Platelet Count 280 K/mm3 (150-450); RBC Distribution Width CV 14.7 % (11.6-14.6); Red Blood Count 4.69 M/mm3 (4.6-6.2); White Blood Count 9.9 K/mm3 (4.4-11.0)
[2020-09-07 12:52] LABS: Absolute Lymphocyte Count 3.68 X10^3/uL (0.83-4.51); Basophil# 0.05 X10^3/uL; Eosinophil# 0.08 X10^3/uL; Lymphocyte # 3.68 X10^3/ul (4.0); Monocyte# 0.81 X10^3/uL; NRBC Flagged by Analyzer 0 % (0-5)
[2020-09-07 20:49] LABS: Xtra Tube EP Lab EXTRA TUBE
== END ==
PROVIDERS: PCP Family Medicine Geriatric Medicine; Referring Provider Nurse Practitioner Acute Care; Visit Provider Nurse Practitioner Acute Care
DX: J45.909 Unspecified asthma, uncomplicated (principal)
CPT/HCPCS: 36415; 85025

== ENCOUNTER → 2020-11-26 07:11 | Outpatient (CLI) | payer MEDICARE, SELFPAY ==
[2020-02-16 05:43] VITALS: BMI 24.3
[2020-09-07 13:12] VITALS: BMI 23.9
--- NOTE | 2020-11-26 07:16 | CT_ITS ---
STUDY: CT CHEST WITH CONTRAST REASON FOR EXAM: Male, 80 years old. MONITORING LUNG CANCER. History of prior left upper lobectomy. RADIATION DOSAGE (If Supplied By Facility): CTDIvol = ( 13.2 ) mGy, DLP = ( 384.68 ) mGycm TECHNIQUE: Transaxial imaging was performed following intravenous administration of IV 100mL Isovue-300. Multiplanar coronal and sagittal images were reformatted. Individualized dose optimization techniques were used for this CT. COMPARISON: Comparison is made with prior study dated 08/29/2019. FINDINGS: Emphysematous changes involving both lungs worse in the upper lobes. The patient is status post left upper lobectomy. There is no demonstrated pleural abnormality. There are calcifications of the coronary arteries. There are multiple small lymph nodes within the mediastinum, which are normal in size and morphology most compatible with reactive lymph hyperplasia. Stable 1.1 cm lymph node in the right hilum. Stable mild increased markings at the left lung base suggestive of scarring. Normal enhanced pulmonary arteries. Atherosclerotic plaques of the aortic arch. There are multi-level degenerative changes of the thoracic spine. Small hiatal hernia. CT/Chest WITH Contrast IMPRESSION: Status post left upper lobectomy. Hyperinflation and changes compatible with emphysematous changes. No acute abnormality is seen. Electronically Signed: River Staples MD at 12:31 EDT , Service support ,
[2020-11-26 07:26] LABS: EGFR FINGERSTICK > 60.0000 mL/min (>60)
== END ==
PROVIDERS: PCP Family Medicine Geriatric Medicine; Referring Provider Internal Medicine Medical Oncology; Visit Provider Internal Medicine Medical Oncology
DX: Z01.812 Encounter for preprocedural laboratory examination (principal); C34.12 Malignant neoplasm of upper lobe, left bronchus or lung
CPT/HCPCS: 71260; Q9967

== ENCOUNTER → 2021-01-05 07:15 | Outpatient (CLI) | payer MEDICARE, SELFPAY ==
[2020-12-27 15:24] VITALS: BMI 23.6
--- NOTE | 2021-01-05 07:18 | MRI_ITS ---
HISTORY: pain. TECHNIQUE: Multiplanar and multisequence MR images of the lumbar spine. IV Contrast dosage and agent: None. # of images incl. paperwork: 134. COMPARISON: XR 12/21/2020, MR 02/10/2017. FINDINGS: VERTEBRAE: Vertebral body heights maintained. Degenerative bone marrow endplate changes at multiple levels, particularly T12-L1 and L3-4. ALIGNMENT: No significant anterior or posterior subluxation. Mild levoscoliosis. SPINAL CANAL: Normal morphology and position of the conus at L1. 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 SOFT TISSUES: Mild posterior subcutaneous edema. IsINTERVERTEBRAL DISCS: Multilevel degenerative changes with posterior disc bulge osteophyte complexes and facet arthropathy. T12-L1: Superimposed left paracentral disc protrusion. Mild-moderate left foraminal narrowing with abutment of the left T12 and L1 nerve roots. L1-2: Mild central canal stenosis and left foraminal narrowing L2-3:Mild central canal stenosis and bilateral foraminal narrowing. L3-4: Moderate central canal stenosis, slightly decreased from prior. Mild bilateral foraminal narrowing. L4-5: No significant central canal stenosis. Mild bilateral foraminal narrowing. L5-S1: Left paracentral disc protrusion with annular fissure resulting in left S1 nerve root impingement and mild left greater than right foraminal narrowing. No significant central canal stenosis. MRI/Spine Lumbar (Routine) IMPRESSION: Multilevel degenerative disc disease as described above. at 0918 Reported and signed by: Yuli Cox MD Electronically Signed: Yuli Cox MD at 9:17 EDT Tel , Service support ,
== END ==
PROVIDERS: PCP Family Medicine Geriatric Medicine; Referring Provider Orthopaedic Surgery; Visit Provider Orthopaedic Surgery
DX: M51.36 Other intervertebral disc degeneration, lumbar region (principal)
CPT/HCPCS: 72148

== ENCOUNTER → 2021-05-13 13:31 | Outpatient (CLI) | payer MEDICARE, SELFPAY ==
--- NOTE | 2021-05-13 13:35 | VDUE_ITS ---
Reason For Study: Swelling Right Proximal Right jugular vein is spontaneous, widely patent, phasic, with no intraluminal echogenicity noted. Right subclavian vein is spontaneous, widely patent, phasic, with no intraluminal echogenicity noted. Right Lower Arm Right radial vein is compressible. Right ulnar vein is compressible. Right Arm Right axillary vein is spontaneous, patent, phasic, competent, compressible and demonstrates augmentation. Right brachial vein is compressible. Right cephalic vein is compressible. Right basilic vein is compressible. VL/Venous Duplex US, Unilateral Interpretation Summary Deep veins of the right upper extremity are patent and compressible segmentally . There is no evidence of deep vein thrombosis. The superficial veins of the right upper extr emity, the basilic and cephalic veins, are patent and compressible. There is no evidence of right upper extremity superficial thrombophlebitis involving the veins imaged. Ordering Physician: Solomon Freeman Referring Physician: Solomon Freeman Chi Performed By: Le Ceballos RVT ?
== END ==
PROVIDERS: PCP Family Medicine Geriatric Medicine; Referring Provider Family Medicine Geriatric Medicine; Visit Provider Family Medicine Geriatric Medicine
DX: R60.0 Localized edema (principal)
CPT/HCPCS: 93971

== ENCOUNTER 2021-06-07 08:30 | Outpatient (RCR) | payer MEDICARE, SELFPAY ==
--- NOTE | 2021-05-22 09:29 | HP.PTEVAL_ITS ---
Patient's Visit Information ALONDRA THORNTON is a 81 year old M referred to Physical Therapy by Dr. Solomon Freeman MD with a diagnosis of CERVICAL RADICULOAPTHY. Date of Evaluation: 05/22/21 Physical Therapist: Mark Roldan, PT, Cert MDT, OCS - Visit Plan Frequency: 2x /Week Duration: 4 Weeks Plan: PT INTERVENTIONS CERVICAL /POSTURAL EX'S,CERVICAL ROM,US/CP/MHP,MANUAL THERAPY CERVICAL TRACTION AND ICTX 14#-20# [id number] - Subjective This 81 y/o male presents to physical therapy with CERVICAL RADICULOPATHY . Patient has had cervical pain with radicular right arm with pain and paresthesia. These symptoms worse at night. Seen Dr recommended PT and prednisone. Pain located in right arm entire UE. Aggravating factors sleeping and general activities. Alleviating factors movement. Patient denies LANE/dizziness/nausea. Patient has had prior PT which helped. Patient goal is to eliminate symptoms at night . Patient condition affects QOL of sleeping patterns. SOCIAL: . VOCATION: retired - Objective POSTURE: mild forward posture ,rounded shoulders head forward. NEURO: c/o paresthesia /tingling at night, reflexes C5-6-7 1/3. AROM BUE: WFL. CERVICAL ROM: flexion min loss, extension mod loss, lateral flexion /rotation min/mod loss. MMT: BUE 4/5. PALAPTION: tender UT/levator - Special Tests C/S Radiculapathy - Left Upper limb tension test: Negative C/S Radiculapathy - Right Upper limb tension test: Negative C/S Radiculapathy - Left Spurlings: Negative C/S Radiculapathy - Right Spurlings: Negative C/S Radiculapathy - Left Cervical distraction: Negative C/S Radiculapathy - Right Cervical distraction: Negative Sharp Frank: Negative Vertebral Artery Test: Negative Alar Ligament Test: Negative - Balance/Special Test Scores Oswestry Neck Score: 15 - Goals Goal 1:: Provide HEP to manage symptoms Goal Time Frame: 4-6 Weeks Goal 2:: Improve sleeping postures and function Goal Time Frame: 4-6 Weeks Goal 3:: Patient to demonstrate 50% improvement with decrease symptoms to improve function. Goal Time Frame: 4-6 Weeks Goal 4:: Patient to improve neck ROM for function of recovery Goal Time Frame: 4-6 Weeks Goal 5:: Patient to improve neck owestry score by 5 points to improve function. Goal Time Frame: 4-6 Weeks - Rehabilitation Potential Physical Therapy Diagnosis: This patient has possible lateral stenosis with symptoms affecting right arm at night affecting QOL Rehabilitation Potential: Good - Anticipated Interventions Patient/Client Instruction: Educate patient on: Condition, Plan of Care For the Purpose of:: To decrease pain, To increase ROM, To improve muscle performance and motor function, To improve ability to perform ADL's, To increase tolerance to activity/condition/position, To improve ability of physical actions for home/community/work/leisure, To improve health of tissue, To decrease soft tissue restriction, To increase flexibility/ROM, To prevent re-injury Therapeutic Exercise to Include: Strength training, Postural training, Flexibilty training, Active ROM For the Purpose of:: To decrease pain, To increase ROM, To improve muscle performance and motor function, To improve ability to perform ADL's, To improve performance and independence with ADL's, To improve ability of physical actions for home/community/work/leisure, To improve health of tissue, To decrease soft tissue restriction, To increase flexibility/ROM Manual Therapy Techniques to Include: Mobilization, Soft tissue mobilization Comment: CERVICAL TRACTION For the Purpose of:: To improve nutrient delivery to tissue, To increase flexibility/ROM Cryotherapy (ice pack, ice massage): Yes Thermo therapy (hot pack): Yes Intermittent cervical traction: Yes For the Purpose of:: To decrease pain, To decrease swelling/inflammation, To improve nutrient delivery to tissue, To increase oxygenation perfusion, To improve health of tissue, To decrease soft tissue restriction, To increase flexibility/ROM Thank you for the opportunity to evaluate your patient. For Medicare and Medicare HMO plans, please review the plan of care and approve it. It will need to be FAXED BACK to us at [phone] for Medicare purposes. For Medicare only, by signing this I certify the plan of care. Please let me know if there are questions or concerns regarding this plan of care. Physician Sign ature: Date:
--- NOTE | 2021-08-14 14:20 | HP.PTDCNRP_ITS ---
ALONDRA THORNTON was seen in my office for initial evaluation on 05/22/21. The following Plan of Care was established for this patient: Initial Frequency: 2x /Week Initial Duration: 4 Weeks Patient/Client Instruction: Educate patient on: Condition, Plan of Care For the Purpose of:: To decrease pain, To increase ROM, To improve muscle performance and motor function, To improve ability to perform ADL's, To increase tolerance to activity/condition/position, To improve ability of physical actions for home/community/work/leisure, To improve health of tissue, To decrease soft tissue restriction, To increase flexibility/ROM, To prevent re-injury Therapeutic Exercise to Include: Strength training, Postural training, Flexibilty training, Active ROM For the Purpose of:: To decrease pain, To increase ROM, To improve muscle performance and motor function, To improve ability to perform ADL's, To improve performance and independence with ADL's, To improve ability of physical actions for home/community/work/leisure, To improve health of tissue, To decrease soft tissue restriction, To increase flexibility/ROM Manual Therapy Techniques to Include: Mobilization, Soft tissue mobilization Comment: CERVICAL TRACTION For the Purpose of:: To improve nutrient delivery to tissue, To increase flexibility/ROM Cryotherapy (ice pack, ice massage): Yes Thermo therapy (hot pack): Yes Intermittent cervical traction: Yes For the Purpose of:: To decrease pain, To decrease swelling/inflammation, To improve nutrient delivery to tissue, To increase oxygenation perfusion, To improve health of tissue, To decrease soft tissue restriction, To increase flexibility/ROM This patient was last seen in our office . Pertinent comments regarding their Physical therapy will appear below: Patient was seen for PT for cervical radiculopathy focus on ICTX ,US and pos tural ex's ,doing better with intervention ,thus is d/c.. At this point I will be discontinuing this patient from physical therapy. I would be happy to see this patient again in the future if found appropriate by the physician. Thank you! Mark Roldan, PT, Cert MDT, OCS Balance/Gait/Functional tests - Balance/Special Test Scores Oswestry Neck Score: 4
== END 2021-06-07 19:00 | disposition home or self-care (01) ==
LOC: PT 08:30
PROVIDERS: PCP Family Medicine Geriatric Medicine; Referring Provider Family Medicine Geriatric Medicine; Visit Provider Family Medicine Geriatric Medicine
DX: M54.12 Radiculopathy, cervical region (principal)
CPT/HCPCS: 97012; 97035; 97110; 97162

== ENCOUNTER 2021-06-24 08:16 | Outpatient (CLI) | payer MEDICARE, SELFPAY ==
[2021-01-14 12:46] VITALS: BMI 24.5
--- NOTE | 2021-06-24 14:58 | PFTCOMP ---
COMPLETE PULMONARY FUNCTION TEST INTERPRETATION Brief HPI: Patient is an 81 year old male, currently under the care of myself, who presents to [facility] for complete pulmonary function tests secondary to diagnosis of COPD. Respiratory therapist reports good effort and reproducible results. Interpretation: Forced expiration spirometry shows a moderate large airways obstructive ventilatory defect with an FEV1 of 60% predicted. There is a significant bronchodilator response in FEV1 by strict ATS criteria. Spirograms are of good quality and plateau slowly, indicating slowly emptying areas of the lungs. The respiratory flow volume loop shows decreased expiratory flow rates at all lung volumes consistent with airway obstruction. Lung volumes by body plethysmography show decreased total lung capacity at 4.75 L, 78% predicted. All other lung volumes are reduced symmetrically. Diffusion capacity by carbon monoxide is at the lower limit of normal at 73% predicted. The airway resistance is elevated. Compared to previous pulmonary function tests from 01/17/2020, there has been a significant reduction in lung volumes. Impression: Partially reversible moderate mixed ventilatory defect with a symmetric reduction in diffusion capacity
== END 2021-06-24 23:59 | disposition short-term general hospital (02) ==
LOC: PSN 08:18
PROVIDERS: PCP Family Medicine Geriatric Medicine; Referring Provider Internal Medicine Critical Care Medicine; Visit Provider Internal Medicine Critical Care Medicine
DX: J44.9 Chronic obstructive pulmonary disease, unspecified (principal); Z90.2 Acquired absence of lung [part of]; R76.8 Other specified abnormal immunological findings in serum
CPT/HCPCS: 94060; 94726; 94729

== ENCOUNTER 2021-08-19 08:54 | Outpatient (CLI) | payer MEDICARE, SELFPAY ==
[2021-08-19 12:18] LABS: Absolute Lymphocyte Count 3.68 X10^3/uL (0.83-4.51); Absolute Neutrophil Count 3.4 X10^3/uL (2.0-7.7); Basophil# 0.05 X10^3/uL; Basophil% 0.6 % (0-1); Eosinophil# 0.14 X10^3/uL; Eosinophils% 1.7 % (0-5); Hematocrit 43.9 % (40-54); Hemoglobin 14.8 g/dL (13.0-16.5); Lymphocyte # 3.68 X10^3/ul (0.83-4.51); Lymphocyte % 45.8 % (19-41); Mean Corp Hgb Conc 33.7 g/dL (32-36); Mean Corpuscular Hgb 30.5 pg (27.0-32.0); Mean Corpuscular Volume 90.5 fL (80-94); Mean Platelet Vol. 10.5 fl (6.2-12.0); Monocyte# 0.72 X10^3/uL; NRBC Flagged by Analyzer 0 % (0-5); Neutrophil # 3.42 X10^3/uL (2.7-7.7); Neutrophil % 42.7 % (47-70); Platelet Count 248 K/mm3 (150-450); RBC Distribution Width CV 12.7 % (11.6-14.6); RBC Distribution Width SD 42.1 fl (35.1-43.9); Red Blood Count 4.85 M/mm3 (4.6-6.2)
[2021-08-19 12:35] LABS: Vitamin D,25 Hydroxy 46.8 ng/mL
[2021-08-19 12:54] LABS: AST(SGOT) 25 U/L (15-37); Alanine Aminotransfer ALT/SGPT 32 U/L (16-61); Albumin, Serum 3.3 g/dL (3.2-5.0); Alkaline Phosphatase 76 U/L (45-117); Anion Gap 4 (5-15); BUN 17 mg/dL (7-18); BUN/Creat Ratio 14.7 RATIO (10-20); Calcium,Total 9.4 mg/dL (8.5-10.1); Chloride 106 mmol/L (98-107); Creatinine, Serum 1.16 mg/dL (0.70-1.30); EST Glomerular Filtration Rate 64 mL/min (>60); Est Glom Filt Rate - Afr Amer 78 mL/min (>60); Globulin 3.3 g/dL (2.2-4.2); Glucose 125 mg/dL (74-106); Potassium 3.9 mmol/L (3.5-5.1); Protein, Total 6.6 g/dL (6.4-8.2); Sodium Level 137 mmol/L (136-145); Thyroid Stim Hormone (TSH) 1.69 uIU/mL (0.358-3.74)
== END 2021-08-19 23:59 | disposition home or self-care (01) ==
LOC: POLAB3 08:54
PROVIDERS: PCP Family Medicine Geriatric Medicine; Visit Provider Family Medicine Geriatric Medicine
DX: E55.9 Vitamin D deficiency, unspecified (principal); R53.83 Other fatigue
CPT/HCPCS: 36415; 80053; 82306; 84443; 85025

== ENCOUNTER → 2021-11-22 | Outpatient (CLI) | payer MEDICARE, SELFPAY ==
--- NOTE | 2021-11-22 08:29 | RAD_ITS ---
STUDY: X-RAY CHEST REASON FOR EXAM: Male, 81 years old. HX OF LUNG CA . The patient is status post left upper lobectomy. TECHNIQUE: PA and lateral views of the chest. COMPARISON: Comparison is made with prior study dated 06/25/2020. FINDINGS: Hyperinflation. Stable blunting of the left cardiac phrenic angle with the mild increased markings at the left lung base suggestive of scarring. Normal size heart. Normal mediastinum and shavon. Normal visualized pulmonary arteries. There is atherosclerotic calcification of the aortic arch with tortuosity. There are diffuse degenerative changes of the visualized thoracic spine. Normal visualized ribs, clavicles, and shoulders. There is no demonstrated abnormality of the visualized soft tissue structures of the upper abdomen. RAD/Chest PA and Lateral IMPRESSION: Stable examination. The patient is status post left upper lobectomy. Electronically Signed: River Staples MD at 13:46 EDT ,
== END | disposition home or self-care (01) ==
LOC: RAD 08:28
PROVIDERS: PCP Family Medicine Geriatric Medicine; Referring Provider Internal Medicine Medical Oncology; Visit Provider Internal Medicine Medical Oncology
DX: Z85.118 Personal history of other malignant neoplasm of bronchus and lung (principal); Z90.2 Acquired absence of lung [part of]
CPT/HCPCS: 71046

== ENCOUNTER 2021-11-26 16:13 | Outpatient (CLI) | payer MEDICARE, SELFPAY ==
[2021-11-26 19:49] LABS: M R Staph aureus DNA By PCR Negative (Negative); Probe Check PASS; Specimen Processing Control PASS; Staph aureus DNA By PCR NEGATIVE (Negative)
== END 2021-11-26 23:59 | disposition home or self-care (01) ==
LOC: LABSPEC 16:14
PROVIDERS: PCP Family Medicine Geriatric Medicine; Visit Provider Family Medicine Geriatric Medicine
DX: B99.9 Unspecified infectious disease (principal); B95.62 Methicillin resistant Staphylococcus aureus infection as the cause of diseases classified elsewhere
CPT/HCPCS: 87070; 87205; 87640

== ENCOUNTER → 2022-01-14 | Outpatient (CLI) | payer MEDICARE, SELFPAY ==
--- NOTE | 2022-01-14 16:20 | RAD_ITS ---
EXAM: XR LUMBOSACRAL SPINE, 2 OR 3 VIEWS CLINICAL INDICATION: LOW BACK PAIN TECHNIQUE: Frontal and lateral views of the lumbar spine and sacrum. This report was created using [employer] report generation technology. COMPARISON: 12/21/2020 FINDINGS: VERTEBRAE: There is a mild scoliotic deformity. There is multilevel degenerative change with disc space narrowing at all levels. Preserved vertebral body height. No fracture. No spondylolisthesis. No significant facet arthropathy. DISC SPACES: There is bony neural foraminal narrowing at L5-S1. GASTROINTESTINAL TRACT: Unremarkable as visualized. Included bowel gas pattern is non-obstructive. RAD/Lumbar Spine 2 or 3 Views IMPRESSION: Multilevel degenerative change with disc space narrowing and bony neural foraminal narrowing. There is mild scoliotic present. There is no acute osseous abnormality. There has been no significant change from the reference exam. Electronically Signed: Glen Churchill MD at 3:04 EDT ,
== END | disposition home or self-care (01) ==
LOC: RAD 16:11
PROVIDERS: PCP Family Medicine Geriatric Medicine; Visit Provider Family Medicine Geriatric Medicine
DX: M54.50 Low back pain, unspecified (principal)
CPT/HCPCS: 72100

== ENCOUNTER → 2022-02-20 | Outpatient (CLI) | payer MEDICARE, SELFPAY ==
[2022-02-20 12:33] LABS: Absolute Lymphocyte Count 4.32 X10^3/uL (0.83-4.51); Absolute Neutrophil Count 5.3 X10^3/uL (2.0-7.7); Basophil# 0.04 X10^3/uL; Basophil% 0.4 % (0-1); Eosinophil# 0.05 X10^3/uL; Eosinophils% 0.5 % (0-5); Hemoglobin 15.3 g/dL (13.0-16.5); Lymphocyte # 4.32 X10^3/ul (0.83-4.51); Lymphocyte % 41.2 % (19-41); Mean Corp Hgb Conc 32.6 g/dL (32-36); Mean Corpuscular Hgb 30.7 pg (27.0-32.0); Mean Corpuscular Volume 94.4 fL (80-94); Mean Platelet Vol. 10.6 fl (6.2-12.0); Monocyte# 0.77 X10^3/uL; Monocyte% 7.3 % (0-10); NRBC Flagged by Analyzer 0 % (0-5); Neutrophil # 5.26 X10^3/uL (2.7-7.7); Neutrophil % 50.1 % (47-70); Platelet Count 268 K/mm3 (150-450); RBC Distribution Width CV 13.7 % (11.6-14.6); RBC Distribution Width SD 47.2 fl (35.1-43.9); Red Blood Count 4.98 M/mm3 (4.6-6.2); White Blood Count 10.5 K/mm3 (4.4-11.0)
[2022-02-20 12:43] LABS: Vitamin D,25 Hydroxy 42.6 ng/mL
[2022-02-20 13:02] LABS: AST(SGOT) 20 U/L (15-37); Alanine Aminotransfer ALT/SGPT 32 U/L (16-61); Albumin, Serum 3.4 g/dL (3.2-5.0); Alkaline Phosphatase 66 U/L (45-117); Anion Gap 6 (5-15); BUN 17 mg/dL (7-18); BUN/Creat Ratio 15.6 RATIO (10-20); Calcium,Total 9.4 mg/dL (8.5-10.1); Chloride 106 mmol/L (98-107); Creatinine, Serum 1.09 mg/dL (0.70-1.30); EST Glomerular Filtration Rate 69 mL/min (>60); Est Glom Filt Rate - Afr Amer 83 mL/min (>60); Globulin 3.5 g/dL (2.2-4.2); Glucose 101 mg/dL (74-106); Potassium 3.9 mmol/L (3.5-5.1); Protein, Total 6.9 g/dL (6.4-8.2); Sodium Level 139 mmol/L (136-145); Thyroid Stim Hormone (TSH) 2.11 uIU/mL (0.358-3.74)
== END | disposition home or self-care (01) ==
LOC: POLAB3 08:57
PROVIDERS: PCP Family Medicine Geriatric Medicine; Visit Provider Family Medicine Geriatric Medicine
DX: R53.83 Other fatigue (principal); E55.9 Vitamin D deficiency, unspecified
CPT/HCPCS: 36415; 80053; 82306; 84443; 85025

== ENCOUNTER → 2022-05-19 | Outpatient (CLI) | payer MEDICARE, SELFPAY ==
--- NOTE | 2022-05-19 15:15 | RAD_ITS ---
INDICATION: LOW BACK PAIN EXAMINATION/TECHNIQUE: X-RAY - XR Spine Thoracic 3 Views COMPARISON: 3 FINDINGS: VERTEBRAE: There is multilevel degenerative disc disease. No spondylolisthesis. Preservation of the normal thoracic kyphosis. No significant facet arthropathy. There is a separate dedicated report of the lumbar spine. DISCS: Disc spaces are maintained. INCLUDED CHEST/ABDOMEN: No acute abnormalities. RAD/Thoracic Spine 3 Views IMPRESSION: Multilevel degenerative disc disease. Electronically Signed: Zonia Hall MD at 9:13 EST ,
--- NOTE | 2022-05-19 15:15 | RAD_ITS ---
INDICATION: LOW BACK PAIN EXAMINATION/TECHNIQUE: X-RAY - XR Spine Lumbar Min 4 Views COMPARISON: 01/14/2022 FINDINGS: VERTEBRAE: Preserved vertebral body height. No acute fracture. No spondylolisthesis. Preservation of the normal lumbar lordosis. DISCS: Stable diffuse degenerative disc space loss and spondylitic changes. INCLUDED ABDOMEN: Included bowel gas pattern is non-obstructive. RAD/L/S Spine Min 4 Views IMPRESSION: Stable diffuse degenerative disc disease. No acute bony abnormality. Electronically Signed: Min Landry MD at 17:17 EST ,
== END | disposition home or self-care (01) ==
LOC: RAD 14:59
PROVIDERS: PCP Family Medicine Geriatric Medicine; Referring Provider Family Medicine Geriatric Medicine; Visit Provider Family Medicine Geriatric Medicine
DX: M54.50 Low back pain, unspecified (principal)
CPT/HCPCS: 72072; 72110

== ENCOUNTER → 2022-06-05 | Outpatient (CLI) | payer MEDICARE, SELFPAY | END | disposition home or self-care (01) | LOC: PSN 09:25 | PROVIDERS: PCP Family Medicine Geriatric Medicine; Referring Provider Family Medicine Geriatric Medicine; Visit Provider Family Medicine Geriatric Medicine | DX: R68.83 Chills (without fever) (principal) | CPT/HCPCS: 87635; 87804; 87807; C9803; U0003; U0005 ==

== ENCOUNTER → 2022-07-07 | Outpatient (CLI) | payer MEDICARE, SELFPAY ==
[2022-07-07 18:13] LABS: Absolute Lymphocyte Count 3.66 X10^3/uL (0.83-4.51); Absolute Neutrophil Count 6.6 X10^3/uL (2.0-7.7); Basophil# 0.06 X10^3/uL; Basophil% 0.5 % (0-1); Eosinophil# 0.07 X10^3/uL; Eosinophils% 0.6 % (0-5); Hemoglobin 15.2 g/dL (13.0-16.5); Lymphocyte # 3.66 X10^3/ul (0.83-4.51); Lymphocyte % 32.5 % (19-41); Mean Corp Hgb Conc 33.8 g/dL (32-36); Mean Corpuscular Volume 91.6 fL (80-94); Mean Platelet Vol. 10.7 fl (6.2-12.0); Monocyte# 0.83 X10^3/uL; Monocyte% 7.4 % (0-10); NRBC Flagged by Analyzer 0 % (0-5); Neutrophil # 6.58 X10^3/uL (2.7-7.7); Neutrophil % 58.5 % (47-70); Platelet Count 234 K/mm3 (150-450); RBC Distribution Width CV 13.4 % (11.6-14.6); RBC Distribution Width SD 45.3 fl (35.1-43.9); Red Blood Count 4.91 M/mm3 (4.6-6.2); White Blood Count 11.3 K/mm3 (4.4-11.0)
[2022-07-07 19:34] LABS: Anion Gap 4 (5-15); BUN 21 mg/dL (7-18); BUN/Creat Ratio 21.7 RATIO (10-20); Chloride 106 mmol/L (98-107); Creatinine, Serum 0.97 mg/dL (0.70-1.30); EST Glomerular Filtration Rate 79 mL/min (>60); Est Glom Filt Rate - Afr Amer 96 mL/min (>60); Glucose 103 mg/dL (74-106); Potassium 4.2 mmol/L (3.5-5.1); Sodium Level 139 mmol/L (136-145)
== END | disposition home or self-care (01) ==
LOC: POLAB3 16:52
PROVIDERS: PCP Family Medicine Geriatric Medicine; Visit Provider Family Medicine Geriatric Medicine
DX: Z01.818 Encounter for other preprocedural examination (principal)
CPT/HCPCS: 36415; 80048; 85025; 85610

== ENCOUNTER → 2022-07-11 | Outpatient (CLI) | payer MEDICARE, SELFPAY ==
--- NOTE | 2022-07-11 12:01 | RAD_ITS ---
INDICATION: PREOP EXAMINATION/TECHNIQUE: X-RAY - XR Chest 2 Views COMPARISON: 11/22/2021. FINDINGS: The lungs are clear. Left basilar atelectasis. Tortuous and calcified thoracic aorta. The heart is not enlarged. No pleural effusion or pneumothorax. Degenerative changes of the thoracic spine. RAD/Chest PA and Lateral IMPRESSION: No acute radiographic abnormalities. Electronically Signed: Papo Ribeiro MD at 16:52 EST ,
[2022-07-11 13:42] LABS: Hematocrit 45.7 % (40-54); Hemoglobin 15.3 g/dL (13.0-16.5); Mean Corp Hgb Conc 33.5 g/dL (32-36); Mean Corpuscular Hgb 30.7 pg (27.0-32.0); Mean Corpuscular Volume 91.6 fL (80-94); Mean Platelet Vol. 10.5 fl (6.2-12.0); Platelet Count 241 K/mm3 (150-450); RBC Distribution Width CV 13.6 % (11.6-14.6); RBC Distribution Width SD 45.5 fl (35.1-43.9); Red Blood Count 4.99 M/mm3 (4.6-6.2); White Blood Count 10.1 K/mm3 (4.4-11.0)
[2022-07-11 13:48] LABS: Prothrombin Time (Protime)PT. 13.1 SECONDS (11.7-14.9)
[2022-07-11 13:58] LABS: Anion Gap 6 (5-15); BUN 14 mg/dL (7-18); BUN/Creat Ratio 14.8 RATIO (10-20); Calcium,Total 9.4 mg/dL (8.5-10.1); Chloride 104 mmol/L (98-107); Creatinine, Serum 0.95 mg/dL (0.70-1.30); EST Glomerular Filtration Rate 81 mL/min (>60); Est Glom Filt Rate - Afr Amer 98 mL/min (>60); Glucose 98 mg/dL (74-106); Sodium Level 139 mmol/L (136-145)
== END | disposition home or self-care (01) ==
PROVIDERS: PCP Family Medicine Geriatric Medicine; Referring Provider Orthopaedic Surgery; Visit Provider Orthopaedic Surgery
DX: Z01.818 Encounter for other preprocedural examination (principal); Z01.810 Encounter for preprocedural cardiovascular examination; Z01.811 Encounter for preprocedural respiratory examination
CPT/HCPCS: 36415; 71046; 80048; 85027; 85610; 85730

== ENCOUNTER 2022-08-19 10:04 | Emergency (ER) | payer MEDICARE, SELFPAY ==
[2022-08-19 10:04] VITALS: BP 116/65; PULSE 89; RESP 18; TEMP 36; O2SAT 99; BMI 26.4
[2022-08-19 10:44] LABS: Absolute Lymphocyte Count 3.18 X10^3/uL (0.83-4.51); Anion Gap 6 (5-15); BUN 12 mg/dL (7-18); Basophil# 0.06 X10^3/uL; Basophil% 0.7 % (0-1); Calcium,Total 9.4 mg/dL (8.5-10.1); Chloride 103 mmol/L (98-107); Creatinine, Serum 0.93 mg/dL (0.70-1.30); EST Glomerular Filtration Rate 83 mL/min (>60); Eosinophil# 0.08 X10^3/uL; Eosinophils% 0.9 % (0-5); Est Glom Filt Rate - Afr Amer 100 mL/min (>60); Estimated Creatinine Clearance 54.31 ml/min; Glucose 120 mg/dL (74-106); Hematocrit 42.9 % (40-54); Hemoglobin 14.3 g/dL (13.0-16.5); Lymphocyte # 3.18 X10^3/ul (0.83-4.51); Lymphocyte % 34.8 % (19-41); Mean Corp Hgb Conc 33.3 g/dL (32-36); Mean Corpuscular Hgb 30.6 pg (27.0-32.0); Mean Corpuscular Volume 91.9 fL (80-94); Mean Platelet Vol. 9.6 fl (6.2-12.0); Monocyte# 0.83 X10^3/uL; Monocyte% 9.1 % (0-10); NRBC Flagged by Analyzer 0 % (0-5); Neutrophil # 4.95 X10^3/uL (2.7-7.7); Platelet Count 299 K/mm3 (150-450); Potassium 4.5 mmol/L (3.5-5.1); RBC Distribution Width CV 13.7 % (11.6-14.6); RBC Distribution Width SD 46.7 fl (35.1-43.9); Red Blood Count 4.67 M/mm3 (4.6-6.2); Sodium Level 136 mmol/L (136-145); White Blood Count 9.2 K/mm3 (4.4-11.0)
--- NOTE | 2022-08-19 11:42 | CT_ITS ---
STUDY: CT ABDOMEN AND PELVIS WITH CONTRAST REASON FOR EXAM: Male, 82 years old. periumbilical abd pain SPINAL STIMULATOR PLACE 1 WEEK AGO, HX: NSCLS, LOBECTOMY RADIATION DOSAGE (If Supplied By Facility): CTDIvol = ( 16.27 ) mGy, DLP = ( 764.22 ) mGycm TECHNIQUE: Transaxial images were obtained from the dome of the diaphragm to the symphysis pubis without oral contrast. ml of 100mL Isovue-300 contrast was administered. Sagittal and coronal images were reconstructed. Individualized dose optimization techniques were used for this CT. COMPARISON: None. FINDINGS: Fibrotic scarring is present in the right middle lobe and left lung base. The visualized portions of the heart are within normal limits. Normal liver. Normal gallbladder and extrahepatic biliary system. Normal spleen. Normal pancreas. Normal bilateral adrenal glands. Normal right kidney. Normal left kidney. Normal visualized stomach. There is mild gaseous and fluid distention of the mid jejunal to the middle two thirds ileal loops, without an area of stricturing or zone of transition that would suggest an obstruction. The findings are consistent with small bowel ileus. There is also mild gaseous and fluid distention of the ascending colon and transverse colon. There are multiple colonic diverticula consistent with diverticulosis. The appendix is visualized and appears normal. There is diffuse atherosclerotic calcification of the abdominal aorta, without a demonstrated aneurysm. Normal inferior vena cava. Normal retroperitoneum. Normal urinary bladder. There are prostatic calcifications. A small amount of ascitic fluid is present in the bilateral inguinal canals. There is a small umbilical hernia containing fat. There are diffuse degenerative changes of the visualized lumbar spine. Left lower back subcutaneous spinal stimulating device and leads noted. CT/Abdomen/Pelvis W IV Cont ONLY IMPRESSION: Small bowel ileus 1. Mild gaseous and fluid distention of the mid jejunal to the middle two thirds ileal loops, without an area of stricturing or zone of transition that would suggest an obstruction. The findings are consistent with small bowel ileus. 2. There is also mild gaseous and fluid distention of the ascending colon and transverse colon. There are multiple colonic diverticula consistent with diverticulosis. Electronically Signed: Joshua Chi MD at 12:43 EST ,
--- NOTE | 2022-08-19 11:42 | ED.VIS.GI ---
HPI HPI - GI History of Present Illness Chief Complaint: Abd Pain Informant: patient Abdominal Pain/Flank Pain Onset: Days (3) Context: Gradual Onset Timing: Continuous Quality: - ( Pain) Location: - (Periumbilical, all the way across the abdomen without radiation or migration) Current Severity: Moderate Maximum Severity: Moderate Worsened by: Nothing Relieved by: Nothing Nausea/Vomiting/Emesis GI Symptom: Negative for Nausea or Vomiting Diarrhea/Melena/Hematochezia GI Symptom: Negative for Diarrhea, Melena or Hematochezia Associated Symptoms Associated Symptoms: Negative for Dysuria, Frequency or Hematuria Narrative Narrative: Patient had a spinal stimulator placed because of pain, he has a history of spinal stenosis according to the EMR, and this was placed about 1 week ago. Subsequently postoperatively he was very constipated and he did not have abdominal pain with it. He eventually did some enemas and laxatives that enabled him to have a good bowel movement, he had a small bowel movement yesterday, but the past 3 days he has been having pain in his periumbilical area of his abdomen after cleaning out. No history of abdominal surgeries. No blood in his stool or melena, no nausea or vomiting. No fevers or chills. The spinal stimulator is not turned on yet, he is still in the healing phases but he states it is feeling better since it was placed, just a little sore in his back. He has no pain or tingling radiating into his lower extremities no bowel or bladder dysfunction, he is urinating normally. He can eat without discomfort. 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 Carpal tunnel syndrome COPD (chronic obstructive pulmonary disease) DDD (degenerative disc disease), lumbar Hypothyroidism left shoulder surgery Lumbar back pain Lumbar spinal stenosis PND (post-nasal drip) Stage 2 moderate COPD by GOLD classification Thyroid disease Home Medications levothyroxine 88 mcg tablet 112 mcg PO DAILY 03/01/15 [History Last Taken Unknown] tamsulosin 0.4 mg capsule 0.4 mg PO DAILY 09/17/16 [History Last Taken Unknown] dicyclomine 10 mg capsule 10 - 20 mg PO Q6H PRN PRN abdominal discomfort #20 CAPSULES 08/19/22 [Rx Last Taken Unknown] Allergy/AdvReac Type Severity Reaction Status Date / Time No Known Allergies Allergy Verified 08/19/22 10:07 Surgical History H/O hemorrhoidectomy History of carpal tunnel release of both wrists History of lobectomy of lung History of shoulder surgery S/P lobectomy of lung Social History household members: spouse housing: house Smoking Status: Former smoker second hand exposure: No alcohol intake: current alcohol intake frequency: a few times a week substance use type: does not use caffeine: No what type of physical activity do you participate in: none do you feel safe at home: Yes ROS ROS ED Constitutional Constitutional ED: Denies chills or fever(s) Eyes Eyes: Denies change in vision or diplopia ENT ENT ED: Denies rhinorrhea or sore throat Cardiovascular Cardiovascular: Denies chest pain or palpitations Respiratory/Chest Respiratory/Chest: Denies cough or dyspnea Gastrointestinal Gastrointestinal: Reports abdominal pain; Denies diarrhea, hematemesis, hematochezia, melena, nausea or vomiting Genitourinary Genitourinary ED: Denies dysuria or hematuria Musculoskeletal Musculoskeletal: Reports back pain; Denies neck pain Integumentary Denies abscess or rash Neurologic Neurologic: Denies headache(s), paresthesias or weakness Psychiatric Psychiatric: Denies anxiety or suicidal thoughts EXAM Physical Exam Const Vital Signs: 08/19/22 10:04 08/19/22 13:36 Temperature 96.8 F L Temperature Source Temporal Pulse Rate 89 87 Respiratory Rate 18 Blood Pressure 116/65 182/92 H Blood Pressure Mean 82 122 Pulse Ox 99 96 Oxygen Delivery Method Room Air Room Air Positive well nourished and well developed General Appearance ED: well developed and NAD HEENT Reports moist mucous membranes normocephalic and atraumatic Eyes PERRL and EOMs intact bilaterally Neck full ROM and supple Resp normal respiratory effort and clear to auscultation bilaterally Cardio regular rate, regular rhythm and no murmurs GI non-distended GI Narrative: Good bowel sounds present. Patient is tender just right of the umbilicus without a palpable hernia, and in the right upper quadrant with a negative Daly's. No other areas of tenderness. Auscultation: normoactive bowel sounds Palpation: soft Back/Spine no CVA tenderness Back/Spine Narrative: 2 surgical wounds on his back with dressings that are clean, dry, intact, sutures are intact, minor erythema consistent with fresh postoperative wounds that are healing, no signs of dehiscence, discharge, bleeding, or significant tenderness. General Back: other FROM Extremity normal to inspection General Extremety ED: Negative for edema, pulses abnormal or tenderness General Extremity: Negative for edema or pulses abnormal Neuro oriented x3, CN's II-XII intact bilaterally and no sensory deficits noted Sensorium / Orientation: awake and alert Motor Exam: strength 5/5 throughout Psych mental status grossly normal and thought process normal Skin no rashes or lesions noted and no wounds MDM MDM MDM Narrative Medical decision making narrative: Differential includes partial obstruction, less likely to be biliary colic/pain, could also be related to colonic contents, other intraintestinal abnormalities. I think CT imaging indicated. This was done, reviewed the images, I do agree with the radiologist's interpretation that there are multiple distended loops of jejunum, nothing that looks like a transition point or obstruction. My interpretation of the CT agrees with that of the radiologist. He states that an ileus is in the differential, however the patient does not clinically have an ileus. He has excellent bowel sounds, and he is not distended compared to normal. He has been eating and drinking well, and he states yesterday he had a small bowel movement but not a lot. His urinalysis is normal here no signs of infection. He is doing well and did ask for some morphine that he initially declined, but I do not think he needs to be admitted for this. He does not have a leukocytosis or anything else concerning here or significant dehydration. I think continuing to do the rest of his saline laxative which she has at home, but they would be reasonable and drink plenty of fluids, and I am prescribing him some dicyclomine to use as needed, he is welcome to return for worsening problems he is comfortable with the plan. Lab Data Attestation: I reviewed the patient's lab results. Labs: Laboratory Results - last 24 hr 08/19/22 08/19/22 08/19/22 10:23 10:23 10:23 WBC 9.2 RBC 4.67 Hgb 14.3 Hct 42.9 MCV 91.9 MCH 30.6 MCHC 33.3 RDW Std Deviation 46.7 H RDW Coeff of Yuki 13.7 Plt Count 299 MPV 9.6 Immature Gran % (Auto) 0.500 Neut % (Auto) 54.0 Lymph % (Auto) 34.8 Claiborne % (Auto) 9.1 Eos % (Auto) 0.9 Baso % (Auto) 0.7 Absolute Neuts (auto) 5.0 Absolute Lymphs (auto) 3.18 Nucleated RBC % 0 Sodium 136 Potassium 4.5 Chloride 103 Carbon Dioxide 27.0 Anion Gap 6 BUN 12 Creatinine 0.93 Estim Creat Clear Calc 54.31 Est GFR (MDRD) Af Amer 100 Est GFR (MDRD) Non-Af 83 BUN/Creatinine Ratio 13.0 Glucose 120 H Calcium 9.4 Total Bilirubin 0.60 Direct Bilirubin 0.16 AST 29 ALT 30 Alkaline Phosphatase 64 Total Protein 6.8 Albumin 3.1 L Globulin 3.7 Lipase 53 L Urine Color Urine Clarity Urine pH Ur Specific Grafton Urine Protein Urine Glucose (UA) Urine Ketones Urine Occult Blood Urine Nitrite Urine Bilirubin Urine Urobilinogen Ur Leukocyte Esterase Urine RBC Urine WBC Ur Squamous Epith Cells Urine Bacteria Urine Mucus 08/19/22 13:35 WBC RBC Hgb Hct MCV MCH MCHC RDW Std Deviation RDW Coeff of Yuki Plt Count MPV Immature Gran % (Auto) Neut % (Auto) Lymph % (Auto) Claiborne % (Auto) Eos % (Auto) Baso % (Auto) Absolute Neuts (auto) Absolute Lymphs (auto) Nucleated RBC % Sodium Potassium Chloride Carbon Dioxide Anion Gap BUN Creatinine Estim Creat Clear Calc Est GFR (MDRD) Af Amer Est GFR (MDRD) Non-Af BUN/Creatinine Ratio Glucose Calcium Total Bilirubin Direct Bilirubin AST ALT Alkaline Phosphatase Total Protein Albumin Globulin Lipase Urine Color Yellow Urine Clarity Clear Urine pH 7.0 Ur Specific Grafton 1.010 Urine Protein Negative Urine Glucose (UA) Normal Urine Ketones Negative Urine Occult Blood Negative Urine Nitrite Negative Urine Bilirubin Negative Urine Urobilinogen Normal Ur Leukocyte Esterase Negative Urine RBC 0 SEEN Urine WBC 0 SEEN Ur Squamous Epith Cells 0 SEEN Urine Bacteria 0 SEEN Urine Mucus 0 SEEN Radiography Diagnostic Testing: Clinical Impression(s) from Imaging Studies Abdomen/Pelvis CT 08/19/22 11:42 IMPRESSION: Small bowel ileus 1. Mild gaseous and fluid distention of the mid jejunal to the middle two thirds ileal loops, without an area of stricturing or zone of transition that would suggest an obstruction. The findings are consistent with small bowel ileus. 2. There is also mild gaseous and fluid distention of the ascending colon and transverse colon. There are multiple colonic diverticula consistent with diverticulosis. Electronically Signed: Joshua Chi MD at 12:43 EST , Discharge Plan Triage Chief Complaint: Abd Pain ED Provider: Shimon Kapoor Dx/Rx/DC Orders Clinical Impression: Abdominal pain, periumbilical Instructions: Abdominal Pain Prescriptions: New dicyclomine 10 mg capsule 10 - 20 mg PO Q6H PRN PRN (Reason: abdominal discomfort) Qty: 20 0RF No Action levothyroxine 88 MCG tablet 112 mcg PO DAILY tamsulosin 0.4 MG capsule 0.4 mg PO DAILY Primary Care Provider: Solomon Freeman Chi Referrals: Solomon Freeman Chi, MD [Primary Care Provider] - 3-5 Days if not improving Disposition Disposition: Home, Self Care
[2022-08-19] MEDS: 0.9% Normal Saline 1,000 ML 125 ML IV (12:03)
[2022-08-19 12:11] LABS: AST(SGOT) 29 U/L (15-37); Alanine Aminotransfer ALT/SGPT 30 U/L (16-61); Albumin, Serum 3.1 g/dL (3.2-5.0); Alkaline Phosphatase 64 U/L (45-117); Bilirubin, Direct 0.16 mg/dL (0.00-0.30); Globulin 3.7 g/dL (2.2-4.2); Lipase 53 U/L (73-393); Protein, Total 6.8 g/dL (6.4-8.2)
[2022-08-19] MEDS: Morphine 2 MG/ML Syringe IV (12:30)
[2022-08-19 13:36] VITALS: BP 182/92; PULSE 87; O2SAT 96
[2022-08-19 13:41] LABS: Bacteria 0 SEEN /hpf (None Seen); Mucous, Urine 0 SEEN /hpf (<or=2+); Red Blood Cells-Urine 0 SEEN /hpf (0-5); Squamous Epithelial Cells - UA 0 SEEN /hpf (0-5); White Blood Cells 0 SEEN /hpf (0-5)
[2022-08-19 13:43] LABS: Color, Urine Yellow (Yellow); Glucose, Dipstick Normal (Normal); Ketone-Dipstick Negative (Negative); Leukocyte Esterase-Dipstick Negative /ul (Negative); Nitrite-Dipstick Negative (Negative); Occult Blood-Urine Negative /ul (Negative); Protein-Dipstick Negative (Negative); Urine Bilirubin Dipstick Negative (Negative); Urine Clarity Clear (Clear); Urine Urobilinogen Normal (Normal)
[2022-08-19] MEDS: Dicyclomine 10 MG Capsule PO (14:36)
[2022-08-19 14:39] VITALS: BP 128/81; PULSE 70; RESP 16; O2SAT 97
== END 2022-08-19 14:40 | disposition home or self-care (01) ==
PROVIDERS: Emergency Provider Emergency Medicine; PCP Family Medicine Geriatric Medicine; Visit Provider Emergency Medicine
DX: R10.33 Periumbilical pain (principal); J44.9 Chronic obstructive pulmonary disease, unspecified; Z87.891 Personal history of nicotine dependence
CPT/HCPCS: 74177; 80048; 80076; 81001; 83690; 85025; 96361; 96374; 99284; J7030; Q9967; A4216

== ENCOUNTER → 2022-11-25 | Outpatient (CLI) | payer MEDICARE, SELFPAY ==
--- NOTE | 2022-11-25 08:35 | RAD_ITS ---
EXAM: XR CHEST, 2 VIEWS CLINICAL INDICATION: HX OF LUNG CA TECHNIQUE: Frontal and lateral views of the chest. COMPARISON: July 11, 2022. FINDINGS: LUNGS AND PLEURAL SPACES: There is similar mild blunting of the left lateral costophrenic angle and mild elevation of the left hemidiaphragm. Mild chronic-appearing lung changes. Question of minimal increased opacity in the left lateral lung base. Similar surgical clips at the left hilum. No pneumothorax. No effusion. HEART: Unremarkable. Cardiac silhouette not enlarged. MEDIASTINUM: Peripheral calcification of the aorta again noted. No nelsy mediastinal or hilar enlargement. BONES/JOINTS: Mild thoracic and lumbar scoliosis and degenerative changes. Neurostimulator device tips over the midthoracic spine, new from prior exams. SOFT TISSUES: Unremarkable. OTHER FINDINGS: Similar appearance of the chest compared to exams back to November 22, 2021. RAD/Chest PA and Lateral IMPRESSION: New neurostimulator catheters. Minimal increased opacity at the left lateral lung base adjacent to the diaphragm. Uncertain whether this is due to atelectasis or infiltrate. CT could be considered if thought to be indicated. Otherwise stable chest with chronic and postoperative lung and hilar changes. Electronically Signed: Ashwini Beverly MD at 6:24 EDT ,
== END | disposition home or self-care (01) ==
LOC: RAD 08:28
PROVIDERS: PCP Family Medicine Geriatric Medicine; Referring Provider Internal Medicine Medical Oncology; Visit Provider Internal Medicine Medical Oncology
DX: Z85.118 Personal history of other malignant neoplasm of bronchus and lung (principal)
CPT/HCPCS: 71046

== ENCOUNTER → 2023-02-02 | Outpatient (CLI) | payer MEDICARE, SELFPAY | END | disposition home or self-care (01) | PROVIDERS: PCP Family Medicine Geriatric Medicine; Referring Provider Family Medicine Geriatric Medicine; Visit Provider Family Medicine Geriatric Medicine | DX: R68.83 Chills (without fever) (principal) | CPT/HCPCS: 87635; 87804; 87807; C9803 ==

== ENCOUNTER → 2023-07-08 | Outpatient (CLI) | payer MEDICARE, SELFPAY ==
--- OUTSIDE RECORDS SUMMARY | 2023-07-08 10:17 | XMS RPT_ITS | CCD ---
Author Name Unknown Address [address] [place] [address] Organization [facility] Care Team Providers Care President + Publisher Name Role Phone Jolene Dyer Unavailable Unavailable Chaparrita Tinoco Unavailable Unavailable Chaparrita Tinoco Unavailable Unavailable Jolene Dyer Unavailable Unavailable JC DE LEON Attending Unavailable CONCETTA HERRERA, DR TOBAR Primary Care Unavailable JC DE LEON Attending Unavailable CONCETTA HERRERA, DR TOBAR Primary Care Unavailable JC DE LEON Admitting Unavailable GABRIELA HAZEL Consulting Anjel albarran Medications Completed/Discontinued Medications Medication Drug Class(es) Dates Sig (Normalized) Sig (Original) 200 actuat albuterol 0.09 mg/actuat metered dose inhaler (4 sources) beta2-Adrenergic Agonist Start: 03-24-2016 VENTOLIN HFA 108 (90 Base) MCG/ACT AERS PRN ALBUTEROL SULFATE [id number] 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 Problems Active Problems Problem Classification Problem Date Documented Date Episodic/Chronic Cancer of bronchus; lung (4 sources) 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; Translations: [Malignant neoplasm of upper lobe, left bronchus or lung] Onset: 04-18-2015 05-04-2015 Chronic Chronic obstructive pulmonary disease and bronchiectasis (4 sources) Moderate chronic obstructive pulmonary disease; Translations: [Chronic obstructive pulmonary disease, unspecified] Onset: 09-26-2015 09-26-2015 Chronic Spondylosis; intervertebral disc disorders; other back problems (4 sources) Degeneration of lumbar intervertebral disc; Translations: [Other intervertebral disc degeneration, lumbar region] Onset: 08-08-2014 08-08-2014 Chronic Unclassified (2 sources) Lung excision; Translations: [Acquired absence of lung [part of]] Onset: 06-28-2015 06-28-2015 Past or Other Problems Problem Classification Problem Date Documented Da te Episodic/Chronic Other lower respiratory disease (10 sources) Dyspnea; Translations: [Paroxysmal nocturnal dyspnea] Onset: 06-28-2015 Resolved: 09-28-2015 06-28-2015 Episodic Other lower respiratory disease (2 sources) Paroxysmal nocturnal dyspnea; Translations: [Dyspnea, unspecified] Onset: 02-24-2017 02-24-2017 Episodic Other non-traumatic joint disorders (8 sources) Pain in wrist; Translations: [Pain in right wrist] Onset: 08-08-2014 Resolved: 09-28-2015 09-28-2015 Episodic Spondylosis; intervertebral disc disorders; other back problems (8 sources) Spinal stenosis of lumbar region; Translations: [Low back pain] Onset: 08-08-2014 08-15-2014 Episodic Sprains and strains (8 sources) Sprain of wrist; Translations: [Unspecified sprain of unspecified wrist] Onset: 08-08-2014 Resolved: 09-28-2015 09-28-2015 Episodic Unclassified (2 sources) Acquired absence of lung [part of]; Translations: [Acquired absence of lung [part of]] Onset: 06-28-2015 06-28-2015 Episodic Results Test Name Value Interpretation Reference Range Facil ity Vital Signs Date Time Vital Sign Value Performing Clinician Facility 02-24-2017 06:42-0400 BMI (Body Mass Index) 23.52 kg/m2 Chaparrita Tinoco [facility] Phone: 02-24-2017 06:42-0400 Body Temperature 97.5 [degF] Chaparrita Tinoco [facility] Work Phone: 02-24-2017 06:42-0400 BP Diastolic 70 mm[Hg] Chaparrita Tinoco [facility] Work Phone: 02-24-2017 06:42-0400 BP Systolic 116 mm[Hg] Chaparrita Tinoco [facility] Work Phone: 02-24-2017 06:42-0400 Height 173.99 cm Chaparrita Tinoco [facility] Work Phone: 02-24-2017 06:42-0400 Pulse (Heart Rate) 73 /min Chaparrita Earnest [facility] Work Phone: 02-24-2017 06:42-0400 Respiratory Rate 18 /min Chaparrita Earnest [facility] Work Phone: 02-24-2017 06:42-0400 Weight 71.22 kg Chaparrita Earnest [facility] Work Phone: 09-02-2016 07:42-0400 BMI (Body Mass Index) 25.17 kg/m2 Chaparrita Earnest [facility] Work Phone: 09-02-2016 07:42-0400 Body Temperature 96.7 [degF] Chaparrita Earnest [facility] Work Phone: 09-02-2016 07:42-0400 BP Diastolic 77 mm[Hg] Chaparrita Earnest [facility] Work Phone: 09-02-2016 07:42-0400 BP Systolic 138 mm[Hg] Chaparrita Earnest [facility] Work Phone: 09-02-2016 07:42-0400 Height 173.99 cm Chaparrita Earnest [facility] Work Phone: 09-02-2016 07:42-0400 Pulse (Heart Rate) 61 /min Chaparrita Earnest [facility] Work Phone: 09-02-2016 07:42-0400 Respiratory Rate 18 /min Chaparrita Earnest [facility] Work Phone: 09-02-2016 07:42-0400 Weight 76.2 kg Chaparrita Earnest [facility] Work Phone: 05-20-2016 13:03-0500 BSA (Body Surface Area) 1.91 m2 Chaparrita Earnest [facility] Work Phone: 05-20-2016 13:03-0500 Height 173.99 cm Chaparrita Earnest [facility] Work Phone: 05-20-2016 13:03-0500 Weight 76.55 kg Chaparrita Tinoco [facility] Work Phone: 03-24-2016 13:55-0400 Body Temperature 97.16 [degF] Chaparrita Tinoco [facility] Work Phone: Encounters Encounter Date Encounter Type Care Provider Facility Start: 08-13-2022 End: 08-14-2022 [facility] Facility:B Start: 08-06-2022 End: 08-07-2022 ambulatory [facility] Facility:B Procedures Date Procedure Procedure Detail Performing Clinician Start: 07-10-2016 End: 08-28-2016 Pulmonary stress test/simple Fartun Chadwick FAMILY NURSE Work Phone: Start: 07-07-2016 End: 08-28-2016 Pulmonary Function Test - complete Fartun Chadwick FAMILY NURSE Work Phone: Start: 10-29-2015 End: 10-30-2015 *CMP Complete Metabolic Panel Stu Tamayo DO Start: 09-26-2015 End: 09-28-2015 Evaluate pt use of inhaler Renzo lopez Work Phone: Start: 06-28-2015 End: 03-21-2016 Follow Up Appt 3 months Renzo Fitzpatrick Work Phone: Start: 06-28-2015 End: 03-21-2016 Pulmonary Function Test - complete Renzo Fitzpatrick Work Phone: Start: 06-28-2015 End: 03-21-2016 Pulmonary stress test/simple Renzo Fitzpatrick Work Phone: Start: 06-07-2015 End: 06-08-2015 *CMP Complete Metabolic Panel Stu Betancourta DO Start: 06-07-2015 End: 06-08-2015 Lactate dehydrogenase (LDH) Stu mcdaniel DO Start: 06-07-2015 End: 06-08-2015 Urate Stu Stone Roni DO Start: 08-08-2014 End: 08-09-2014 Documentation of current medications Ann Marie William Plan of Treatment Date Care Activity Detail Author Start: 08-21-2017 End: 08-21-2017 Appointment Appointment [facility] Phone: Start: 08-17-2017 End: 02-24-2017 Pulmonary stress test/simple Pulmonary stress testing; simple (eg, 6-minute walk) [facility] Phone: Start: 08-10-2017 End: 02-24-2017 Pulmonary Function Test - complete Pulmonary Function Test - complete [facility] Phone: Start: 02-24-2017 End: 02-24-2017 Appointment Appointment [facility] Phone: Start: 02-24-2017 End: 02-24-2017 BWA BWA [facility] Phone: Start: 02-24-2017 End: 02-24-2017 Follow Up Appt 6 months Follow Up Appt 6 months [facility] Phone: Start: 11-11-2016 End: 05-20-2016 *CBC w/Diff - oncology ONLY *CBC w/Diff - oncology ONLY [facility] Phone: Start: 11-11-2016 End: 05-20-2016 *CMP Complete Metabolic Panel *CMP Complete Metabolic Panel [facility] Phone: Start: 11-03-2016 End: 05-20-2016 Ct thorax w/dye CT Chest with Contrast [facility] Phone: Start: 09-02-2016 End: 09-02-2016 [facility] Phone: Start: 09-02-2016 End: 09-02-2016 Follow Up Appt 6 months Follow Up Appt 6 months [facility] Phone: Start: 07-10-2016 End: 08-28-2016 Pulmonary stress test/simple Pulmonary stress testing; simple (eg, 6-minute walk) [facility] Phone: Start: 07-07-2016 End: 03-24-2016 BWA BWA [facility] Work Phone: Start: 07-07-2016 End: 03-24-2016 Follow Up Appt 6 months Follow Up Appt 6 months [facility] Work Phone: Start: 07-07-2016 End: 08-28-2016 Pulmonary Function Test - complete Pulmonary Function Test - complete [facility] Work Phone: Start: 05-20-2016 End: 05-20-2016 Office/outpatient visit, est, level 4 [id number] Ofc Vst, Est Level IV [facility] Work Phone: Start: 05-14-2016 End: 11-15-2015 Ct thorax w/dye CT Chest with Contrast [facility] Work Phone: Start: 05-07-2016 End: 11-15-2015 *BMP *BMP [facility] Work Phone: Start: 11-05-2015 End: 10-02-2015 Ct thorax w/dye CT Chest with Contrast [facility] Work Phone: Start: 10-29-2015 End: 10-30-2015 *CMP Complete Metabolic Panel *CMP Complete Metabolic Panel [facility] Work Phone: Start: 09-26-2015 End: 09-26-[address] [facility] Work Phone: Start: 09-26-2015 End: 09-26-2015 Follow Up Appt 6 months Follow Up Appt 6 months [facility] Work Phone: Start: 06-28-2015 End: 03-21-2016 Follow Up Appt 3 months Follow Up Appt 3 months [facility] Work Phone: Start: 06-28-2015 End: 03-21-2016 Pulmonary Function Test - complete Pulmonary Function Test - complete [facility] Work Phone: Start: 06-28-2015 End: 03-21-2016 Pulmonary stress test/simple Pulmonary stress testing; simple (eg, 6-minute walk) [facility] Phone: Start: 06-07-2015 End: 05-09-2015 *CBC with Differential *CBC with Differential [facility] Phone: Start: 06-07-2015 End: 06-08-2015 *CMP Complete Metabolic Panel *CMP Complete Metabolic Panel [facility] Phone: Start: 06-07-2015 End: 06-08-2015 Lactate dehydrogenase (LDH) *LDH -LDH (Lactate Dehydrogenase) [facility] Phone: Start: 06-07-2015 End: 06-08-2015 Urate *Uric Acid Blood [facility] Phone: Start: 08-08-2014 End: 08-08-2014 X-ray exam of wrist X-Ray, Wrist [facility] Phone: Patient Education Albuterol%20(I nhalation) %20(Aerosol%2C%20Aerosol %20Powder%2C%20Suspensio n%2C%20Solution) [facility] Phone: Immunizations Immunization Date Immunization Notes Care Provider Raoul marcano 02-24-2017 influenza, high dose seasonal, preservative-free Chaparrita Earnest [facility] Phone: 02-24-2017 [id number] Chaparrita [place] [facility] Phone: Payers Date Payer Category Payer Unknown [id number] 1940 Unknown [id number] 1940 Unknown [id number] Summary Purpose Family History No Family History Records Found Advance Directives No Advanced Directives Records Found Additional Source Comments (unrecognized sect ion and content) No Status Records Found INFORMATION SOURCE (unrecogn ized section and content) FOR RECORDS PERTAINING TO PATIENTS WHO ARE OR HAVE BEEN ENROLLED IN A CHEMICAL DEPENDENCY/SUBSTANCEABUSE PROGRAM, SOME INFORMATION MAY BE OMITTED. This clinical summary was aggregated from multiple sources. Caution should be exercised in using it in the provision of clinical care. This summary normalizes information from multiple sources, and as a consequence, information in this document may materially change the coding, format and clinical context of patient data. In addition, data may be omitted in some cases. CLINICAL DECISIONS SHOULD BE BASED ON THE PRIMARY CLINICAL RECORDS. [facility] [employer] [facility]. provides no warranty or guarantee of the accuracy or completeness of information in this document.
--- NOTE | 2023-07-08 12:20 | NEURO ---
NCS and/or EMG Patient Report Ordering Doctor: Angel Oscar DATE OF SERVICE: 07/08/23 Taryn presents electrodiagnostic testing of the right upper limb. He reports numbness and tingling throughout the right arm. Electrodiagnostic findings: Right median motor nerve demonstrates prolonged distal latency with normal amplitude and reduced conduction velocity. Normal right ulnar motor response. Normal ulnar and median F?waves. Absent median sensory latency at the wrist and palm. Normal right radial sensory response. Needle EMG testing was performed the right upper limb. All muscles tested showed no evidence of denervation with normal motor unit action potentials. Electrodiagnostic impression: This is an abnormal study in the right upper limb. 1. Electrodiagnostic findings demonstrate right-sided median mononeuropathy. This is consistent with a moderate to advanced right carpal tunnel syndrome. 2. There is no electrodiagnostic evidence for cervical radiculopathy. Multi Select Codes Neurology Neurology Interp Codes: 52956-63 Musc test done w/n test comp (interp) and 72645-98 Nrv cndj test 7-8 studies (interp)
== END | disposition home or self-care (01) ==
LOC: PSN 09:53
PROVIDERS: PCP Family Medicine Geriatric Medicine; Referring Provider Orthopaedic Surgery; Visit Provider Orthopaedic Surgery
DX: M54.12 Radiculopathy, cervical region (principal); R20.2 Paresthesia of skin
CPT/HCPCS: 95886; 95910

== ENCOUNTER → 2023-07-15 | Outpatient (CLI) | payer MEDICARE, SELFPAY ==
--- OUTSIDE RECORDS SUMMARY | 2023-07-15 10:27 | XMS RPT_ITS | CCD ---
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 Problems Active Problems Problem Classification Problem Date [...] 23.52 kg/m2 Chaparrita Tinoco [facility] Phone: 02-24-2017 06:42-0400 Body Temperature 97.5 [degF] Chaparrita Tinoco [facility] Work Phone: 02-24-2017 06:42-0400 BP Diastolic 70 mm[Hg] Chaparrita Tinoco [facility] Work Phone: 02-24-2017 06:42-0400 BP Systolic 116 mm[Hg] Chaparrita Tinoco [facility] Work Phone: 02-24-2017 06:42-0400 Height 173.99 cm Chaparrita Tinoco [facility] Work Phone: 02-24-2017 06:42-0400 Pulse (Heart Rate) 73 /min Chaparrita Earnest [facility] Work Phone: 02-24-2017 06:42-0400 Respiratory Rate 18 /min Chaparrita Earnest [facility] Work Phone: 02-24-2017 06:42-0400 Weight 71.22 kg Chaparrita Earnest [facility] Work Phone: 09-02-2016 07:42-0400 BMI (Body Mass Index) 25.17 kg/m2 Chaparrita Earnest [facility] Work Phone: 09-02-2016 07:42-0400 Body Temperature 96.7 [degF] Chaparrita Earnest [facility] Work Phone: 09-02-2016 07:42-0400 BP Diastolic 77 mm[Hg] Chaparrita Earnest [facility] Work Phone: 09-02-2016 07:42-0400 BP Systolic 138 mm[Hg] Chaparrita Earnest [facility] Work Phone: 09-02-2016 07:42-0400 Height 173.99 cm Chaaprrita Earnest [facility] Work Phone: 09-02-2016 07:42-0400 Pulse (Heart Rate) 61 /min Chaparrita Earnest [facility] Work Phone: 09-02-2016 07:42-0400 Respiratory Rate 18 [...] kg Chaparrita Tinoco [facility] Work Phone: 03-24-2016 13:55-0400 Body Temperature 97.16 [degF] Chaparrita Tinoco [facility] Work Phone: Encounters Encounter Date Encounter Type Care Provider Facility Start: 08-13-2022 End: 08-14-2022 [facility] Facility:B Start: 08-06-2022 End: 08-07-2022 ambulatory [facility] Facility:B Procedures Date Procedure Procedure Detail Performing Clinician Start: 07-10-2016 End: 08-28-2016 Pulmonary stress test/simple Fartun Chadwick COMMUNICATIONS TECHNICIAN Work Phone: Start: 07-07-2016 End: 08-28-2016 Pulmonary Function Test - complete Fartun Chadwick COMMUNICATIONS TECHNICIAN Work Phone: Start: 10-29-2015 End: 10-30-2015 *CMP [...] End: 08-21-2017 Appointment Appointment [facility] Phone: Start: 08-17-2017 End: 02-24-2017 Pulmonary stress test/simple Pulmonary stress testing; simple (eg, 6-minute walk) [facility] Phone: Start: 08-10-2017 End: 02-24-2017 Pulmonary Function Test - complete Pulmonary Function Test - complete [facility] Phone: Start: 02-24-2017 End: 02-24-2017 Appointment Appointment [facility] Phone: Start: 02-24-2017 End: 02-24-2017 BWA BWA [facility] Phone: Start: 02-24-2017 End: 02-24-2017 Follow Up Appt 6 months Follow Up Appt 6 months [facility] Phone: Start: 11-11-2016 End: 05-20-2016 *CBC w/Diff - oncology ONLY *CBC w/Diff - oncology ONLY [facility] Phone: Start: 11-11-2016 End: 05-20-2016 *CMP Complete Metabolic Panel *CMP Complete Metabolic Panel [facility] Phone: Start: 11-03-2016 End: 05-20-2016 Ct thorax w/dye CT Chest with Contrast [facility] Phone: Start: 09-02-2016 End: 09-02-2016 [facility] Phone: Start: 09-02-2016 End: 09-02-2016 Follow Up Appt 6 months Follow Up Appt 6 months [facility] Phone: Start: 07-10-2016 End: 08-28-2016 Pulmonary stress test/simple Pulmonary stress testing; simple (eg, 6-minute walk) [facility] Phone: Start: 07-07-2016 End: 03-24-2016 BWA BWA [facility] Work Phone: Start: 07-07-2016 End: 03-24-2016 Follow Up Appt 6 months Follow Up Appt 6 months [facility] Work Phone: Start: 07-07-2016 End: 08-28-2016 Pulmonary Function Test - complete Pulmonary Function Test - complete [facility] Work Phone: Start: 05-20-2016 End: 05-20-2016 Office/outpatient visit, est, level 4 [id number] Ofc Vst, Est Level IV [facility] Work Phone: Start: 05-14-2016 End: 11-15-2015 Ct thorax w/dye CT Chest with Contrast [facility] Work Phone: Start: 05-07-2016 End: 11-15-2015 *BMP *BMP [facility] Work Phone: Start: 11-05-2015 End: 10-02-2015 Ct thorax w/dye CT Chest with Contrast [facility] Work Phone: Start: 10-29-2015 End: 10-30-2015 *CMP Complete Metabolic Panel *CMP Complete Metabolic Panel [facility] Work Phone: Start: 09-26-2015 End: 09-26-2015 [facility] Work Phone: Start: 09-26-2015 End: 09-26-2015 Follow Up Appt 6 months Follow Up Appt 6 months [facility] Work Phone: Start: 06-28-2015 End: 03-21-2016 Follow Up Appt 3 months Follow Up Appt 3 months [facility] Work Phone: Start: 06-28-2015 End: 03-21-2016 Pulmonary Function Test - complete Pulmonary Function Test - complete [facility] Work Phone: Start: 06-28-2015 End: 03-21-2016 Pulmonary stress test/simple Pulmonary stress testing; simple (eg, 6-minute walk) [facility] Phone: Start: 06-07-2015 End: 05-09-2015 *CBC with Differential *CBC with Differential [facility] Phone: Start: 06-07-2015 End: 06-08-2015 *CMP Complete Metabolic Panel *CMP Complete Metabolic Panel [facility] Phone: Start: 06-07-2015 End: 06-08-2015 Lactate dehydrogenase (LDH) *LDH -LDH (Lactate Dehydrogenase) [facility] Phone: Start: 06-07-2015 End: 06-08-2015 Urate *Uric Acid Blood [facility] Phone: Start: 08-08-2014 End: 08-08-2014 X-ray exam of wrist X-Ray, Wrist [facility] Phone: Patient Education Albuterol%20(I nhalation) %20(Aerosol%2C%20Aerosol %20Powder%2C%20Suspensio n%2C%20Solution) [facility] Phone: Immunizations Immunization Date Immunization Notes Care Provider Raoul marcano 02-24-2017 influenza, high dose seasonal, preservative-free Chaparrita Earnest [facility] Phone: 02-24-2017 [id number] Chaparrita [place] [facility] Phone: Payers Date Payer Category Payer Unknown [id number] 1940 Unknown [id number] 1940 Unknown [id number] Summary Purpose Family History No Family History [...] BE BASED ON THE PRIMARY CLINICAL RECORDS. [employer] [facility]. provides no warranty or guarantee of the accuracy or completeness of information in this document.
[2023-07-15 11:21] LABS: Absolute Lymphocyte Count 2.95 X10^3/uL (0.83-4.51); Absolute Neutrophil Count 4.1 X10^3/uL (2.0-7.7); Basophil# 0.06 X10^3/uL; Basophil% 0.8 % (0-1); Eosinophils% 1.3 % (0-5); Hematocrit 43.9 % (40-54); Hemoglobin 14.2 g/dL (13.0-16.5); Lymphocyte # 2.95 X10^3/ul (0.83-4.51); Lymphocyte % 37.4 % (19-41); Mean Corp Hgb Conc 32.3 g/dL (32-36); Mean Corpuscular Hgb 29.7 pg (27.0-32.0); Mean Corpuscular Volume 91.8 fL (80-94); Monocyte# 0.61 X10^3/uL; Monocyte% 7.7 % (0-10); NRBC Flagged by Analyzer 0 % (0-5); Neutrophil # 4.14 X10^3/uL (2.7-7.7); Neutrophil % 52.5 % (47-70); Platelet Count 246 K/mm3 (150-450); RBC Distribution Width CV 12.6 % (11.6-14.6); RBC Distribution Width SD 42.5 fl (35.1-43.9); Red Blood Count 4.78 M/mm3 (4.6-6.2); White Blood Count 7.9 K/mm3 (4.4-11.0)
[2023-07-15 11:48] LABS: Vitamin D,25 Hydroxy 61.5 ng/mL
[2023-07-15 12:15] LABS: AST(SGOT) 18 U/L (15-37); Alanine Aminotransfer ALT/SGPT 23 U/L (16-61); Albumin, Serum 3.2 g/dL (3.2-5.0); Alkaline Phosphatase 82 U/L (45-117); Anion Gap 6 (5-15); BUN 22 mg/dL (7-18); BUN/Creat Ratio 19.6 RATIO (10-20); Calcium,Total 8.8 mg/dL (8.5-10.1); Chloride 107 mmol/L (98-107); Creatinine, Serum 1.12 mg/dL (0.70-1.30); EST Glomerular Filtration Rate 66 mL/min (>60); Est Glom Filt Rate - Afr Amer 80 mL/min (>60); Globulin 3.1 g/dL (2.2-4.2); Glucose 99 mg/dL (74-106); Protein, Total 6.3 g/dL (6.4-8.2); Sodium Level 138 mmol/L (136-145); Thyroid Stim Hormone (TSH) 2.06 uIU/mL (0.358-3.74)
== END | disposition home or self-care (01) ==
LOC: POLAB3 10:06
PROVIDERS: PCP Family Medicine Geriatric Medicine; Visit Provider Family Medicine Geriatric Medicine
DX: R53.83 Other fatigue (principal); E55.9 Vitamin D deficiency, unspecified
CPT/HCPCS: 36415; 80053; 82306; 84443; 85025

== ENCOUNTER → 2023-08-13 | Outpatient (CLI) | payer MEDICARE, SELFPAY ==
[2023-08-13 16:52] LABS: Absolute Lymphocyte Count 2.62 X10^3/uL (0.83-4.51); Absolute Neutrophil Count 3.2 X10^3/uL (2.0-7.7); Basophil# 0.05 X10^3/uL; Basophil% 0.8 % (0-1); Eosinophil# 0.16 X10^3/uL; Eosinophils% 2.4 % (0-5); Hematocrit 40.2 % (40-54); Hemoglobin 13.2 g/dL (13.0-16.5); Lymphocyte # 2.62 X10^3/ul (0.83-4.51); Lymphocyte % 39.4 % (19-41); Mean Corp Hgb Conc 32.8 g/dL (32-36); Mean Corpuscular Hgb 30.1 pg (27.0-32.0); Mean Corpuscular Volume 91.6 fL (80-94); Mean Platelet Vol. 10.7 fl (6.2-12.0); NRBC Flagged by Analyzer 0 % (0-5); Neutrophil # 3.21 X10^3/uL (2.7-7.7); Neutrophil % 48.2 % (47-70); Platelet Count 222 K/mm3 (150-450); RBC Distribution Width SD 43.7 fl (35.1-43.9); Red Blood Count 4.39 M/mm3 (4.6-6.2); White Blood Count 6.7 K/mm3 (4.4-11.0)
[2023-08-13 17:07] LABS: Anion Gap 4 (5-15); BUN 20 mg/dL (7-18); BUN/Creat Ratio 20.6 RATIO (10-20); Calcium,Total 8.4 mg/dL (8.5-10.1); Chloride 110 mmol/L (98-107); Creatinine, Serum 0.97 mg/dL (0.70-1.30); EST Glomerular Filtration Rate 78 mL/min (>60); Est Glom Filt Rate - Afr Amer 94 mL/min (>60); Glucose 118 mg/dL (74-106); Potassium 3.9 mmol/L (3.5-5.1); Sodium Level 140 mmol/L (136-145)
--- OUTSIDE RECORDS SUMMARY | 2023-08-13 19:01 | XMS RPT_ITS | CCD ---
Author Name Unknown Address [id number] [place] [address] Organization [facility] Care Team Providers Care Swing Type Lathe Operator Name Role Phone Jolene Dyer Unavailable Unavailable Chaparrita Tinoco Unavailable Unavailable Chaparrita Tinoco Unavailable Unavailable Jolene Dyer Unavailable Unavailable JC DE LEON Attending Unavailable CONECTTA HERRERA, DR TOBAR Primary Care Unavailable JC DE LEON Attending Unavailable CONCETTA HERRERA, DR TOBAR Primary Care Unavailable JC DE LEON Admitting Unavailable GABRIELA HAZEL Consulting Anjel albarran Medications Completed/Discontinued Medications Medication Drug Class(es) Dates Sig (Normalized) Sig (Original) 200 actuat albuterol 0.09 mg/actuat metered dose inhaler (4 sources) beta2-Adrenergic Agonist Start: 03-24-2016 VENTOLIN HFA 108 (90 Base) MCG/ACT AERS PRN ALBUTEROL SULFATE [id number] Trena Hernandez TABLE TOP TILE SETTER Problems Active Problems Problem Classification Problem Date [...] 23.52 kg/m2 Chaparrita Tinoco [facility] Phone: 02-24-2017 06:42-0400 Body Temperature 97.5 [degF] Chaparrita Tinoco [facility] Work Phone: 02-24-2017 06:42-0400 BP Diastolic 70 mm[Hg] Chaparrita Tinoco [facility] Work Phone: 02-24-2017 06:42-0400 BP Systolic 116 mm[Hg] Chaparrita Tinoco [facility] Work Phone: 02-24-2017 06:42-0400 Height 173.99 cm Chaparrita Tnioco [facility] Work Phone: 02-24-2017 06:42-0400 Pulse (Heart Rate) 73 /min Chaparrita Earnest [facility] Work Phone: 02-24-2017 06:42-0400 Respiratory Rate 18 /min Chaparrita Earnest [facility] Work Phone: 02-24-2017 06:42-0400 Weight 71.22 kg Chaparrita Earnest [facility] Work Phone: 09-02-2016 07:42-0400 BMI (Body Mass Index) 25.17 kg/m2 Chaparrita Earnest [facility] Work Phone: 09-02-2016 07:42-0400 Body Temperature 96.7 [degF] Chaparrita Eanrest [facility] Work Phone: 09-02-2016 07:42-0400 BP Diastolic 77 mm[Hg] Chaparrita Earnest [facility] Work Phone: 09-02-2016 07:42-0400 BP Systolic 138 mm[Hg] Chaparrita Earnest [facility] Work Phone: 09-02-2016 07:42-0400 Height 173.99 cm Chaparrita Earnest [facility] Work Phone: 09-02-2016 07:42-0400 Pulse (Heart Rate) 61 /min Chaparrita Earnest [facility] Work Phone: 09-02-2016 07:42-0400 Respiratory Rate 18 /min Chaparrita Earnest [facility] Work Phone: 09-02-2016 07:42-0400 Weight 76.2 kg Chaparrita Earnest [facility] Work Phone: 05-20-2016 13:03-0500 BSA (Body Surface Area) 1.91 m2 Chaparrita Earnest [facility] Work Phone: 05-20-2016 13:03-0500 Height 173.99 cm Chaparrita Earnest [facility] Work Phone: 05-20-2016 13:03-0500 Weight 76.55 kg Chaparrita Tinoco [facility] Work Phone: 03-24-2016 13:55-0400 Body Temperature 97.16 [degF] Chaparrita Tinoco [facility] Work Phone: Encounters Encounter Date Encounter Type Care Provider Facility Start: 08-13-2022 End: 08-14-2022 [facility] Facility:B Start: 08-06-2022 End: 08-07-2022 ambulatory [facility] Facility:B Procedures Date Procedure Procedure Detail Performing Clinician Start: 07-10-2016 End: 08-28-2016 Pulmonary stress test/simple Fartun Chadwick POLITICAL SCIENTIST Work Phone: Start: 07-07-2016 End: 08-28-2016 Pulmonary Function Test - complete Fartun Chadwick POLITICAL SCIENTIST Work Phone: Start: 10-29-2015 End: 10-30-2015 *CMP [...] End: 08-21-2017 Appointment Appointment [facility] Phone: Start: 08-17-2017 End: 02-24-2017 Pulmonary stress test/simple Pulmonary stress testing; simple (eg, 6-minute walk) [facility] Phone: Start: 08-10-2017 End: 02-24-2017 Pulmonary Function Test - complete Pulmonary Function Test - complete [facility] Phone: Start: 02-24-2017 End: 02-24-2017 Appointment Appointment [facility] Phone: Start: 02-24-2017 End: 02-24-2017 BWA BWA [facility] Phone: Start: 02-24-2017 End: 02-24-2017 Follow Up Appt 6 months Follow Up Appt 6 months [facility] Phone: Start: 11-11-2016 End: 05-20-2016 *CBC w/Diff - oncology ONLY *CBC w/Diff - oncology ONLY [facility] Phone: Start: 11-11-2016 End: 05-20-2016 *CMP Complete Metabolic Panel *CMP Complete Metabolic Panel [facility] Phone: Start: 11-03-2016 End: 05-20-2016 Ct thorax w/dye CT Chest with Contrast [facility] Phone: Start: 09-02-2016 End: 09-02-2016 [facility] Phone: Start: 09-02-2016 End: 09-02-2016 Follow Up Appt 6 months Follow Up Appt 6 months [facility] Phone: Start: 07-10-2016 End: 08-28-2016 Pulmonary stress test/simple Pulmonary stress testing; simple (eg, 6-minute walk) [facility] Phone: Start: 07-07-2016 End: 03-24-2016 BWA BWA [facility] Work Phone: Start: 07-07-2016 End: 03-24-2016 Follow Up Appt 6 months Follow Up Appt 6 months [facility] Work Phone: Start: 07-07-2016 End: 08-28-2016 Pulmonary Function Test - complete Pulmonary Function Test - complete [facility] Work Phone: Start: 05-20-2016 End: 05-20-2016 Office/outpatient visit, est, level 4 67920 Ofc Vst, Est Level IV [facility] Work Phone: Start: 05-14-2016 End: 11-15-2015 Ct thorax w/dye CT Chest with Contrast [facility] Work Phone: Start: 05-07-2016 End: 11-15-2015 *BMP *BMP [facility] Work Phone: Start: 11-05-2015 End: 10-02-2015 Ct thorax w/dye CT Chest with Contrast [facility] Work Phone: Start: 10-29-2015 End: 10-30-2015 *CMP Complete Metabolic Panel *CMP Complete Metabolic Panel [facility] Work Phone: Start: 09-26-2015 End: 09-26-2015 [facility] Work Phone: Start: 09-26-2015 End: 09-26-2015 Follow Up Appt 6 months Follow Up Appt 6 months [facility] Work Phone: Start: 06-28-2015 End: 03-21-2016 Follow Up Appt 3 months Follow Up Appt 3 months [facility] Work Phone: Start: 06-28-2015 End: 03-21-2016 Pulmonary Function Test - complete Pulmonary Function Test - complete [facility] Work Phone: Start: 06-28-2015 End: 03-21-2016 Pulmonary stress test/simple Pulmonary stress testing; simple (eg, 6-minute walk) [facility] Phone: Start: 06-07-2015 End: 05-09-2015 *CBC with Differential *CBC with Differential [facility] Phone: Start: 06-07-2015 End: 06-08-2015 *CMP Complete Metabolic Panel *CMP Complete Metabolic Panel [facility] Phone: Start: 06-07-2015 End: 06-08-2015 Lactate dehydrogenase (LDH) *LDH -LDH (Lactate Dehydrogenase) [facility] Phone: Start: 06-07-2015 End: 06-08-2015 Urate *Uric Acid Blood [facility] Phone: Start: 08-08-2014 End: 08-08-2014 X-ray exam of wrist X-Ray, Wrist [facility] Phone: Patient Education Albuterol%20(I nhalation) %20(Aerosol%2C%20Aerosol %20Powder%2C%20Suspensio n%2C%20Solution) [facility] Phone: Immunizations Immunization Date Immunization Notes Care Provider Raoul marcano 02-24-2017 influenza, high dose seasonal, preservative-free Chaparrita Earnest [facility] Phone: 02-24-2017 [id number] Chaparrita [place] [facility] Phone: Payers Date Payer Category Payer Unknown [id number] 1940 Unknown [id number] 1940 Unknown [id number] Summary Purpose Family History No Family History [...] BE BASED ON THE PRIMARY CLINICAL RECORDS. [facility]. provides no warranty or guarantee of the accuracy or completeness of information in this document.
== END | disposition home or self-care (01) ==
LOC: POLAB3 14:58
PROVIDERS: PCP Family Medicine Geriatric Medicine; Visit Provider Family Medicine Geriatric Medicine
DX: E86.0 Dehydration (principal)
CPT/HCPCS: 36415; 80048; 85025

== ENCOUNTER → 2023-08-13 | Outpatient (CLI) | payer MEDICARE, SELFPAY ==
--- NOTE | 2023-08-13 15:23 | CT_ITS ---
STUDY: CT BRAIN WITHOUT CONTRAST REASON FOR EXAM: Male, 83 years old. 2 day history of dizziness. RADIATION DOSAGE (If Supplied By Facility): CTDIvol = ( 44.99 ) mGy, DLP = ( 829.85 ) mGycm TECHNIQUE: Transaxial CT imaging of the brain was performed without administration of intravenous contrast material. Individualized dose optimization techniques were used for this CT. COMPARISON: Comparison is made with prior study dated May 25, 2019. FINDINGS: Normal soft tissue structures. Normal calvarium. There is mild cerebral atrophy with widening of the extra-axial spaces and ventricular dilatation. There are areas of decreased attenuation within the white matter tracts of the supratentorial brain, consistent with microvascular disease changes. Normal basal ganglia and thalami. Normal brainstem. Normal cerebellum. There is no intracranial hemorrhage. There are no findings of an acute ischemic infarction. Atherosclerotic calcification of the cavernous portions of the internal carotid arteries bilaterally. Mild degree of mucosal thickening at the base of the left maxillary sinus. CT/Brain/Head without Contrast IMPRESSION: Chronic involutional changes of the brain. Electronically Signed: River Staples MD at 15:43 EST ,
== END | disposition home or self-care (01) ==
LOC: CT 15:21
PROVIDERS: PCP Family Medicine Geriatric Medicine; Referring Provider Family Medicine Geriatric Medicine; Visit Provider Family Medicine Geriatric Medicine
DX: R42 Dizziness and giddiness (principal)
CPT/HCPCS: 70450

== ENCOUNTER 2023-08-14 08:25 | Outpatient (CLI) | payer MEDICARE, SELFPAY ==
[2023-08-14 08:40] VITALS: BP 141/62; PULSE 67; RESP 18; TEMP 36.2; O2SAT 95; BMI 22.6
--- OUTSIDE RECORDS SUMMARY | 2023-08-14 08:47 | XMS RPT_ITS | CCD ---
Author Name Unknown Address [address] [place] [address] Organization [facility] Care Team Providers [employer] Press Operator Name Role Phone Jolene Dyer Unavailable Unavailable Chaparrita Tinoco Unavailable Unavailable Chaparrita Tinoco Unavailable Unavailable Jolene Dyer Unavailable Unavailable JC DE LEON Attending Unavailable CONCETTA HERRERA, DR TOBAR Primary Care Unavailable JC DE LEON Attending Unavailable CONCETTA HERRERA, DR TOBAR Primary Care Unavailable JC DE LEON Admitting Unavailable GABRIELA HAZLE Consulting Anjel albarran Medications Completed/Discontinued Medications Medication Drug Class(es) Dates Sig (Normalized) Sig (Original) 200 actuat albuterol 0.09 mg/actuat metered dose inhaler (4 sources) beta2-Adrenergic Agonist Start: 03-24-2016 VENTOLIN HFA 108 (90 Base) MCG/ACT AERS PRN ALBUTEROL SULFATE [id number] Trena Hernandez FLORAL DEPARTMENT SPECIALIST Problems Active Problems Problem Classification Problem Date [...] 23.52 kg/m2 Chaparrita Tinoco [facility] Phone: 02-24-2017 06:42-0400 Body Temperature 97.5 [degF] Chaparrita Tinoco [facility] Work Phone: 02-24-2017 06:42-0400 BP Diastolic 70 mm[Hg] Chaparrita Tinoco [facility] Work Phone: 02-24-2017 06:42-0400 BP Systolic 116 mm[Hg] Chaparrita Tinoco [facility] Work Phone: 02-24-2017 06:42-0400 Height 173.99 cm Chaparrita Tinoco [facility] Work Phone: 02-24-2017 06:42-0400 Pulse (Heart Rate) 73 /min Chaparrita Earnest [facility] Work Phone: 02-24-2017 06:42-0400 Respiratory Rate 18 /min Chaparrita Earnest [facility] Work Phone: 02-24-2017 06:42-0400 Weight 71.22 kg Chaparrita Earnest [facility] Work Phone: 09-02-2016 07:42-0400 BMI (Body Mass Index) 25.17 kg/m2 Chaparrita Earnest [facility] Work Phone: 09-02-2016 07:42-0400 Body Temperature 96.7 [degF] Chaparrita Earnest [facility] Work Phone: 09-02-2016 07:42-0400 BP Diastolic 77 mm[Hg] Chaparrita Earnest [facility] Work Phone: 09-02-2016 07:42-0400 BP Systolic 138 mm[Hg] Chaparrita Earnest [facility] Work Phone: 09-02-2016 07:42-0400 Height 173.99 cm Chaparrita Earnest [facility] Work Phone: 09-02-2016 07:42-0400 Pulse (Heart Rate) 61 /min Chaparrita Earnest [facility] Work Phone: 09-02-2016 07:42-0400 Respiratory Rate 18 /min Chaparrita Earnest [facility] Work Phone: 09-02-2016 07:42-0400 Weight 76.2 kg Chaparrita Earnest [facility] Work Phone: 05-20-2016 13:03-0500 BSA (Body Surface Area) 1.91 m2 Chaparrita Earnest [facility] Work Phone: 05-20-2016 13:03-0500 Height 173.99 cm Chaparrita Earnest [facility] Work Phone: 05-20-2016 13:03-0500 Weight 76.55 kg Chaparrita Tinoco [facility] Work Phone: 03-24-2016 13:55-0400 Body Temperature 97.16 [degF] Chaparrita Tinoco [facility] Work Phone: Encounters Encounter Date Encounter Type Care Provider Facility Start: 08-13-2022 End: 08-14-2022 [facility] Facility:B Start: 08-06-2022 End: 08-07-2022 ambulatory [facility] Facility:B Procedures Date Procedure Procedure Detail Performing Clinician Start: 07-10-2016 End: 08-28-2016 Pulmonary stress test/simple Fartun Chadwick CUT OFF SAW OPERATOR Work Phone: Start: 07-07-2016 End: 08-28-2016 Pulmonary Function Test - complete Fartun Chadwick CUT OFF SAW OPERATOR Work Phone: Start: 10-29-2015 End: 10-30-2015 *CMP [...] End: 08-21-2017 Appointment Appointment [facility] Phone: Start: 08-17-2017 End: 02-24-2017 Pulmonary stress test/simple Pulmonary stress testing; simple (eg, 6-minute walk) [facility] Phone: Start: 08-10-2017 End: 02-24-2017 Pulmonary Function Test - complete Pulmonary Function Test - complete [facility] Phone: Start: 02-24-2017 End: 02-24-2017 Appointment Appointment [facility] Phone: Start: 02-24-2017 End: 02-24-2017 BWA BWA [facility] Phone: Start: 02-24-2017 End: 02-24-2017 Follow Up Appt 6 months Follow Up Appt 6 months [facility] Phone: Start: 11-11-2016 End: 05-20-2016 *CBC w/Diff - oncology ONLY *CBC w/Diff - oncology ONLY [facility] Phone: Start: 11-11-2016 End: 05-20-2016 *CMP Complete Metabolic Panel *CMP Complete Metabolic Panel [facility] Phone: Start: 11-03-2016 End: 05-20-2016 Ct thorax w/dye CT Chest with Contrast [facility] Phone: Start: 09-02-2016 End: 09-02-2016 [facility] Phone: Start: 09-02-2016 End: 09-02-2016 Follow Up Appt 6 months Follow Up Appt 6 months [facility] Phone: Start: 07-10-2016 End: 08-28-2016 Pulmonary stress test/simple Pulmonary stress testing; simple (eg, 6-minute walk) [facility] Phone: Start: 07-07-2016 End: 03-24-2016 BWA BWA [facility] Work Phone: Start: 07-07-2016 End: 03-24-2016 Follow Up Appt 6 months Follow Up Appt 6 months [facility] Work Phone: Start: 07-07-2016 End: 08-28-2016 Pulmonary Function Test - complete Pulmonary Function Test - complete [facility] Work Phone: Start: 05-20-2016 End: 05-20-2016 Office/outpatient visit, est, level 4 [id number] Ofc Vst, Est Level IV [facility] Work Phone: Start: 05-14-2016 End: 11-15-2015 Ct thorax w/dye CT Chest with Contrast [facility] Work Phone: Start: 05-07-2016 End: 11-15-2015 *BMP *BMP [facility] Work Phone: Start: 11-05-2015 End: 10-02-2015 Ct thorax w/dye CT Chest with Contrast [facility] Work Phone: Start: 10-29-2015 End: 10-30-2015 *CMP Complete Metabolic Panel *CMP Complete Metabolic Panel [facility] Work Phone: Start: 09-26-2015 End: 09-26-2015 [facility] Work Phone: Start: 09-26-2015 End: 09-26-2015 Follow Up Appt 6 months Follow Up Appt 6 months [facility] Work Phone: Start: 06-28-2015 End: 03-21-2016 Follow Up Appt 3 months Follow Up Appt 3 months [facility] Work Phone: Start: 06-28-2015 End: 03-21-2016 Pulmonary Function Test - complete Pulmonary Function Test - complete [facility] Work Phone: Start: 06-28-2015 End: 03-21-2016 Pulmonary stress test/simple Pulmonary stress testing; simple (eg, 6-minute walk) [facility] Phone: Start: 06-07-2015 End: 05-09-2015 *CBC with Differential *CBC with Differential [facility] Phone: Start: 06-07-2015 End: 06-08-2015 *CMP Complete Metabolic Panel *CMP Complete Metabolic Panel [facility] Phone: Start: 06-07-2015 End: 06-08-2015 Lactate dehydrogenase (LDH) *LDH -LDH (Lactate Dehydrogenase) [facility] Phone: Start: 06-07-2015 End: 06-08-2015 Urate *Uric Acid Blood [facility] Phone: Start: 08-08-2014 End: 08-08-2014 X-ray exam of wrist X-Ray, Wrist [facility] Phone: Patient Education Albuterol%20(I nhalation) %20(Aerosol%2C%20Aerosol %20Powder%2C%20Suspensio n%2C%20Solution) [facility] Phone: Immunizations Immunization Date Immunization Notes Care Provider Raoul marcano 02-24-2017 influenza, high dose seasonal, preservative-free Chaparrita Earnest [facility] Phone: 02-24-2017 [id number] Chaparrita [facility] Phone: Payers Date Payer Category Payer Unknown [id number] 1940 Unknown [id number] 1940 Unknown [id number] Summary Purpose Family History No Family History [...] BE BASED ON THE PRIMARY CLINICAL RECORDS. [facility]. provides no warranty or guarantee of the accuracy or completeness of information in this document.
[2023-08-14] MEDS: 0.9% Normal Saline (1000mL) 1,000 ML 999 ML IV ×2 (08:48→09:47)
[2023-08-14] MEDS: 0.9% NaCl Peripheral Flush Adult/Peds IV (08:49)
[2023-08-14 10:58] VITALS: BP 140/67; PULSE 50; RESP 16; TEMP 36.5; O2SAT 96
== END 2023-08-14 08:26 | disposition home or self-care (01) ==
LOC: MEDOUTP 08:26
PROVIDERS: PCP Family Medicine Geriatric Medicine; Referring Provider Family Medicine Geriatric Medicine; Visit Provider Family Medicine Geriatric Medicine
DX: E86.0 Dehydration (principal)
CPT/HCPCS: 96360; 96361; J7030; A4216

== ENCOUNTER → 2023-11-25 | Outpatient (CLI) | payer MEDICARE, SELFPAY ==
--- NOTE | 2023-11-25 09:00 | RAD_ITS ---
STUDY: X-RAY CHEST REASON FOR EXAM: Male, 83 years old. HX OF LUNG CA TECHNIQUE: Frontal and lateral views of the chest. COMPARISON: 07/11/2022, 10/25/2022. FINDINGS: There is hyperinflation of the lungs consistent with chronic obstructive lung disease (COPD). Focal density in the lateral left upper lobe measuring 2.5 cm, not present previously and suggestive of neoplasm. CT scan recommended. Stable pleural-parenchymal scarring in left lung base. Right lung is clear. No definite effusions. There is no demonstrated pleural abnormality. Normal size heart. Normal mediastinum and shavon. Normal visualized pulmonary arteries. There is atherosclerotic calcification of the aortic arch with tortuosity. Normal visualized thoracic spine. Stable epidural stimulator thoracic spine. Normal visualized ribs, clavicles, and shoulders. There is no demonstrated abnormality of the visualized soft tissue structures of the upper abdomen. RAD/Chest PA and Lateral IMPRESSION: There is a new 2.5 cm focal density in the left upper lobe. Probable nodule. Scan recommended. COPD. Electronically Signed: Heriberto Bethea MD at 17:17 EDT ,
== END | disposition home or self-care (01) ==
LOC: RAD 08:50
PROVIDERS: PCP Family Medicine Geriatric Medicine; Referring Provider Internal Medicine Medical Oncology; Visit Provider Internal Medicine Medical Oncology
DX: Z85.118 Personal history of other malignant neoplasm of bronchus and lung (principal)
CPT/HCPCS: 71046

== ENCOUNTER → 2023-12-15 | Outpatient (CLI) | payer MEDICARE, SELFPAY ==
--- NOTE | 2023-12-15 07:47 | CT_ITS ---
STUDY: CT CHEST T ABDOMEN WITH CONTRAST REASON FOR EXAM: Male, 83 years old. NEW LUNG NODULE/HX OF LUNG CA RADIATION DOSAGE (If Supplied By Facility): CTDIvol = ( 13.64 ) mGy, DLP = ( 642.48 ) mGycm TECHNIQUE: Transaxial imaging was performed following intravenous administration of IV 100mL Isovue-300. Multiplanar coronal and sagittal images were reformatted. Individualized dose optimization techniques were used for this CT. COMPARISON: Comparison is made with prior CT scan of the chest dated November 26, 2020. Comparison is made with prior CT scan of the abdomen dated August 19, 2022. FINDINGS: CHEST Small bilateral axillary lymph nodes slightly more prominent on the left side. Hyperinflation. Emphysematous changes. This is worse in the upper lobes. There now is evidence of a 2.1 cm x 1.1 cm peripheral based nodule in the anterior left upper lobe as seen on axial image #46 and coronal image #121. A neoplastic process should be ruled out. A PET scan is recommended. Scarring is seen in the lower lobes. There is no demonstrated pleural abnormality. Mild degree of coronary artery calcification. Normal mediastinum. Normal hilar regions. Normal unenhanced pulmonary arteries. There is atherosclerotic calcification of the aortic arch. There are multi-level degenerative changes of the thoracic spine. ABDOMEN Normal liver. Normal gallbladder and extrahepatic biliary system. Normal spleen. Normal pancreas. Normal bilateral adrenal glands. Normal right kidney. Normal left kidney. Normal visualized stomach. Normal small intestine. Large amount of fecal material is seen in the right hemicolon. The appendix is visualized and appears normal. There is diffuse atherosclerotic calcification of the abdominal aorta, without a demonstrated aneurysm. Normal inferior vena cava. Normal retroperitoneum. There is a small umbilical hernia containing fat. There are diffuse degenerative changes of the visualized lumbar spine. CT/CT Chest AND Abd W/ Contrast IMPRESSION: New 2.1 cm x 1 point centimeter peripheral based nodule in the anterior left upper lobe as described. Correlation with the PET scan is recommended. Electronically Signed: River Staples MD at 13:51 EDT ,
== END | disposition home or self-care (01) ==
LOC: CT 07:46
PROVIDERS: PCP Family Medicine Geriatric Medicine; Referring Provider Internal Medicine Medical Oncology; Visit Provider Internal Medicine Medical Oncology
DX: R91.1 Solitary pulmonary nodule (principal); Z85.118 Personal history of other malignant neoplasm of bronchus and lung
CPT/HCPCS: 71260; 74160; Q9967

== ENCOUNTER → 2024-01-13 | Outpatient (CLI) | payer MEDICARE, SELFPAY ==
[2024-01-13 11:46] LABS: Absolute Lymphocyte Count 3.55 X10^3/uL (0.83-4.51); Absolute Neutrophil Count 3.2 X10^3/uL (2.0-7.7); Basophil# 0.06 X10^3/uL; Basophil% 0.8 % (0-1); Eosinophil# 0.13 X10^3/uL; Eosinophils% 1.7 % (0-5); Hematocrit 40.9 % (40-54); Hemoglobin 13.7 g/dL (13.0-16.5); Lymphocyte # 3.55 X10^3/ul (0.83-4.51); Lymphocyte % 46.2 % (19-41); Mean Corp Hgb Conc 33.5 g/dL (32-36); Mean Corpuscular Hgb 30.4 pg (27.0-32.0); Mean Corpuscular Volume 90.7 fL (80-94); Mean Platelet Vol. 9.3 fl (6.2-12.0); Monocyte# 0.69 X10^3/uL; NRBC Flagged by Analyzer 0 % (0-5); Neutrophil # 3.24 X10^3/uL (2.7-7.7); Neutrophil % 42.2 % (47-70); Platelet Count 250 K/mm3 (150-450); RBC Distribution Width CV 12.9 % (11.6-14.6); RBC Distribution Width SD 42.7 fl (35.1-43.9); Red Blood Count 4.51 M/mm3 (4.6-6.2); White Blood Count 7.7 K/mm3 (4.4-11.0)
[2024-01-13 11:56] LABS: International Normalized Ratio 1.1
[2024-01-13 11:57] LABS: Partial Thromboplast Time 35.5 Seconds (24.1-36.2)
[2024-01-13 12:36] LABS: Vitamin D,25 Hydroxy 58.4 ng/mL
[2024-01-13 12:55] LABS: ALB/GLOB Ratio 0.8 RATIO (0.9-2.4); AST(SGOT) 17 U/L (15-37); Alanine Aminotransfer ALT/SGPT 24 U/L (16-61); Albumin, Serum 3.1 g/dL (3.2-5.0); Alkaline Phosphatase 89 U/L (45-117); Anion Gap 7 (5-15); BUN 17 mg/dL (7-18); BUN/Creat Ratio 17.6 RATIO (10-20); Calcium,Total 9.1 mg/dL (8.5-10.1); Chloride 107 mmol/L (98-107); Cholesterol 174 mg/dL (200); Creatinine, Serum 0.97 mg/dL (0.70-1.30); EST Glomerular Filtration Rate 78 mL/min (>60); Est Glom Filt Rate - Afr Amer 95 mL/min (>60); Globulin 3.7 g/dL (2.2-4.2); Glucose 82 mg/dL (74-106); High Density Lipoprotein 52 mg/dL; Potassium 4.3 mmol/L (3.5-5.1); Protein, Total 6.8 g/dL (6.4-8.2); Sodium Level 139 mmol/L (136-145); Thyroid Stim Hormone (TSH) 2.14 uIU/mL (0.358-3.74); Triglycerides 80 mg/dL; Very Low Density Lipoprotein 16 mg/dL (5-40)
== END | disposition home or self-care (01) ==
PROVIDERS: Internal Medicine Medical Oncology; PCP Family Medicine Geriatric Medicine; Referring Provider Family Medicine Geriatric Medicine; Visit Provider Family Medicine Geriatric Medicine
DX: E78.5 Hyperlipidemia, unspecified (principal); C34.90 Malignant neoplasm of unspecified part of unspecified bronchus or lung; R53.83 Other fatigue; E55.9 Vitamin D deficiency, unspecified; R91.1 Solitary pulmonary nodule
CPT/HCPCS: 80053; 80061; 82306; 84443; 85025; 85610; 85730

== ENCOUNTER 2024-01-14 07:54 | Outpatient (CLI) | payer MEDICARE, SELFPAY ==
[2024-01-14] VITALS (16 sets, daily range): BP systolic 112–198; BP diastolic 53–112; PULSE 51–70; RESP 14–19; TEMP 36.2; O2SAT 92–97; BMI 24.3
--- NOTE | 2024-01-14 | ASPIGT_PTH ---
PATIENT: ALONDRA THORNTON LOC: ID U#:[id number] AGE/SX: 83/M ROOM: RE01/14/[address]: Dr. Hansel Chavarria MD : 1940 BED: DIS: 01/14/2024 SPEC #: [id number] RECD: 01/14/24 10:00 STATUS: PRISCILA CARMINE #: [id number] ROGELIO: 01/14/24 00:[address]: Hansel Chavarria DEPT: SURGICAL PATHOLOGY RECD BY: Marty Weir ENTERED: 01/14/24 11:07 SP TYPE: ASP RAD OT DR: Dr. Solomon Freeman MD Tissues: Lung, NOS Procedures: FNA Specimen Adequacy Special Stain Group II Surgery Specimen Level IV Imprint (control) HEADER OPERATION: CT guided left lung nodule biopsy PRE-OP DIAGNOSIS: Left lung nodule TISSUE SUBMITTED: 20 gauge x5 cores MICROSCOPIC DIAGNOSIS Left lung nodule, CT guided core biopsy: Lung parenchymal tissue with extensive interstitial fibrosis and chronic inflammation. Negative for malignancy. See comment. / 01/15/2024 COMMENT The specimen is evaluated at the time of biopsy by Dr. Bone. Immediate Evaluation = Negative for malignant cells. Epithelioid cells suggestive of granuloma are noted. Special stains for acid fast bacilli and fungi are negative for organisms; matched controls are appropriate. Correlation with clinical, radiologic findings and appropriate follow up are necessary. Case has been reviewed in consultation with Dr. Mckeon who concurs with the above diagnosis. IDC:AM MICROSCOPIC DESCRIPTION Slides are reviewed. GROSS DESCRIPTION Received in fixative is one container labeled with the patient's name and designated Left lung biopsy. The specimen consists of multiple irregular fragments of light neri soft tissue that in aggregate measure 0.5 x 0.1 x 0.1 cm. The specimen is totally submitted in one cassette. Two touch imprints are prepared at the time of core biopsy. / 01/14/2024 TC:5 CPT:93824,99827,[id number]
[2024-01-14] MEDS: 0.9% Saline Lock 10 ML Syringe IV (08:25)
[2024-01-14] MEDS: 0.9% Normal Saline (250mL Bag) 250 ML 15 ML IV (08:25)
[2024-01-14] MEDS: Midazolam 2 MG/2 ML Syringe IV (09:07)
[2024-01-14] MEDS: fentaNYL 100 MCG/2 ML Ampul IV (09:08)
[2024-01-14] MEDS: Lidocaine 2% (20 ml mdv) 20 ML Vial INFILT (09:21)
--- NOTE | 2024-01-14 09:33 | PCM.OP.PRO ---
Procedure Report Date of Procedure: 01/14/24 Assessment & Plan Assessment/Plan (1) Lung nodule seen on imaging study: PLAN: PROCEDURE: CT GUIDED CORE NEEDLE LUNG BIOPSY ORDERING PROVIDER: Dr. Chavarria INDICATION: Male, 83 years old. Left upper lobe lung nodule. PROVIDER: OLIMPIA Gibbons CONSENT: Written informed consent was obtained having explained the risks, benefits and alternatives in detail with the patient who accepted the risks and agreed to proceed. Laboratory review and clinical assessment was performed. PRE-PROCEDURE SEDATION ASSESSMENT: Current history and physical dictated by referring physician and reviewed. No clinical changes since date of exam. Patient has a Mallampati Score of Class 1 and ASA Class of 2. PROCEDURAL SEDATION PROTOCOL: The Drugs used were: 2 mg Versed, IV, and 50 mcg Fentanyl, IV. The sedation time was: 26 minutes, starting at 9:05 AM and terminated at 9:31 AM. The procedural sedation protocol was independently monitored by the department nurse. RADIATION DOSAGE (If Supplied By Facility): CTDIvol = 16.58 mGy, DLP = 613.55 mGycm Individualized dose optimization techniques were used for this CT. TECHNIQUE: The patient was placed in a supine position. A noncontrast CT was performed to localize the lesion in the left upper lobe. The skin surface was prepped and draped in a sterile fashion. 2% lidocaine was used for local anesthesia. Using CT guidance, a 20-gauge coaxial biopsy device was advanced to the periphery of the lesion. A total of 5 core specimens were obtained. Specimens were microscopically reviewed by pathology in the CT suite and placed in formalin solution. BioSentry tract sealant system was deployed at the biopsy site, and the biopsy needle was removed. A sterile occlusive dressing was applied to the biopsy site. The patient tolerated the procedure well. An immediate chest xray was ordered, per protocol. A negative biopsy does not exclude malignancy. Further imaging or clinical followup based on patient condition and degree of clinical suspicion for malignancy. Suggest rebiopsy, if biopsy results do not match with clinical scenario. IMPRESSION: 1. CT directed core needle biopsy of left upper lobe lung nodule using CT image guidance with image documentation as described. Pathology results are pending. 2. Procedural Sedation protocol utilized with independent monitoring by the department nurse. Procedures Radiology Radiology CT Procedures: 40672 Biopsy Lung
--- NOTE | 2024-01-14 09:35 | RAD_ITS ---
STUDY: X-RAY CHEST REASON FOR EXAM: Male, 83 years old. Post biopsy -- Immediately post lung biopsy TECHNIQUE: AP and inspiration expiration views. COMPARISON: Comparison is made with prior study dated November 25, 2023. FINDINGS: The patient is status post left upper lobe biopsy. No evidence of pneumothorax. RAD/Chest Insp/Exp 2 View IMPRESSION: No evidence of pneumothorax on immediate post left lung biopsy radiographs. Electronically Signed: River Staples MD at 9:47 EDT ,
--- NOTE | 2024-01-14 11:15 | RAD_ITS ---
STUDY: X-RAY CHEST REASON FOR EXAM: Male, 83 years old. Post biopsy -- 2 hours post lung biopsy TECHNIQUE: AP inspiration and expiration views. COMPARISON: Comparison is made with prior study done earlier today. FINDINGS: No evidence of pneumothorax on the 2 hour post left lung biopsy radiographs. RAD/Chest Insp/Exp 2 View IMPRESSION: No evidence of pneumothorax on the 2 hour post left lung biopsy radiographs. Electronically Signed: River Staples MD at 13:18 EDT ,
== END 2024-01-14 23:59 | disposition home or self-care (01) ==
LOC: CT 07:54
PROVIDERS: PCP Family Medicine Geriatric Medicine; Referring Provider Internal Medicine Medical Oncology; Visit Provider Internal Medicine Medical Oncology
DX: J84.10 Pulmonary fibrosis, unspecified (principal)
CPT/HCPCS: 32408; 71046; 77012; 88172; 88305; 88313; 99156; J7050; A4216; C2613

== ENCOUNTER → 2024-02-01 | Outpatient (CLI) | payer MEDICARE, SELFPAY ==
[2024-02-01 10:36] LABS: Absolute Lymphocyte Count 3.29 X10^3/uL (0.83-4.51); Absolute Neutrophil Count 3.7 X10^3/uL (2.0-7.7); Basophil# 0.05 X10^3/uL; Basophil% 0.6 % (0-1); Eosinophil# 0.13 X10^3/uL; Eosinophils% 1.7 % (0-5); Hematocrit 42.3 % (40-54); Hemoglobin 13.9 g/dL (13.0-16.5); Lymphocyte # 3.29 X10^3/ul (0.83-4.51); Lymphocyte % 42.1 % (19-41); Mean Corp Hgb Conc 32.9 g/dL (32-36); Mean Corpuscular Hgb 29.9 pg (27.0-32.0); Monocyte# 0.66 X10^3/uL; Monocyte% 8.5 % (0-10); NRBC Flagged by Analyzer 0 % (0-5); Neutrophil # 3.67 X10^3/uL (2.7-7.7); Platelet Count 199 K/mm3 (150-450); RBC Distribution Width CV 13.1 % (11.6-14.6); RBC Distribution Width SD 43.1 fl (35.1-43.9); Red Blood Count 4.65 M/mm3 (4.6-6.2); White Blood Count 7.8 K/mm3 (4.4-11.0)
[2024-02-01 10:57] LABS: International Normalized Ratio 1.1; Prothrombin Time (Protime)PT. 14.1 SECONDS (11.7-14.9)
[2024-02-01 11:49] LABS: ALB/GLOB Ratio 0.9 RATIO (0.9-2.4); AST(SGOT) 20 U/L (15-37); Alanine Aminotransfer ALT/SGPT 21 U/L (16-61); Albumin, Serum 3.2 g/dL (3.2-5.0); Alkaline Phosphatase 91 U/L (45-117); Anion Gap 5 (5-15); BUN 20 mg/dL (7-18); BUN/Creat Ratio 20.2 RATIO (10-20); Calcium,Total 9.1 mg/dL (8.5-10.1); Chloride 108 mmol/L (98-107); Creatinine, Serum 0.99 mg/dL (0.70-1.30); EST Glomerular Filtration Rate 77 mL/min (>60); Est Glom Filt Rate - Afr Amer 93 mL/min (>60); Globulin 3.5 g/dL (2.2-4.2); Glucose 92 mg/dL (74-106); Potassium 4.1 mmol/L (3.5-5.1); Protein, Total 6.7 g/dL (6.4-8.2); Sodium Level 138 mmol/L (136-145)
== END | disposition home or self-care (01) ==
LOC: POLAB3 09:50
PROVIDERS: PCP Family Medicine Geriatric Medicine; Visit Provider Family Medicine Geriatric Medicine
DX: Z01.818 Encounter for other preprocedural examination (principal); R06.02 Shortness of breath; R53.83 Other fatigue
CPT/HCPCS: 36415; 80053; 85025; 85610

== ENCOUNTER 2024-02-25 07:07 | Observation (INO) | payer MEDICARE, SELFPAY ==
--- NOTE | 2024-02-05 08:25 | RAD_ITS ---
STUDY: X-RAY CHEST REASON FOR EXAM: Male, 83 years old. PREOP TECHNIQUE: PA and lateral views of the chest. COMPARISON: 01/14/2024 FINDINGS: There is hyperinflation of the lungs consistent with chronic obstructive lung disease (COPD). There is no demonstrated pleural abnormality. Normal size heart. Normal mediastinum and shavon. Normal visualized pulmonary arteries. Normal visualized aortic arch and descending thoracic aorta. There is a dextroscoliosis of the thoracic spine. Dorsal column spinal stimulator in the lower thoracic spine. Normal visualized ribs, clavicles, and shoulders. There is no demonstrated abnormality of the visualized soft tissue structures of the upper abdomen. RAD/Chest PA and Lateral IMPRESSION: Emphysema without pneumonia or atelectasis. Electronically Signed: Marcelo Payne MD at 14:26 EDT ,
[2024-02-25] VITALS (19 sets, daily range): BP systolic 116–162; BP diastolic 60–97; PULSE 69–88; RESP 12–20; TEMP 35.6–36.8; O2SAT 91–99; BMI 24.1
[2024-02-25] MEDS: Lactated Ringers 1,000 ML 15 ML IV (06:30)
--- NOTE | 2024-02-25 06:30 | RAD_ITS ---
EXAM: XR LUMBOSACRAL SPINE, 2 OR 3 VIEWS CLINICAL INDICATION: IMPLANTATION OF SPINAL CORD STIMULATOR TECHNIQUE: Frontal and lateral views of the lumbar spine and sacrum. COMPARISON: November 25, 2023. FINDINGS: Intraoperative image with spinal cord stimulator seen projecting over the lower thoracic spine. RAD/Lumbar Spine 2 or 3 Views IMPRESSION: Intraoperative image with spinal cord stimulator seen projecting over the lower thoracic spine. Electronically Signed: Mark Amador MD at 4:35 EDT ,
--- NOTE | 2024-02-25 07:05 | PCM.OPRPT ---
Report of Operation Date of Procedure: 02/25/24 Description of Surgical Findings:: REPORT OF OPERATION PREOPERATIVE DIAGNOSES: 1. Lumbar stenosis, spondylosis. 2. Chronic back pain 3. Nonfunctioning spinal cord stimulator POSTOPERATIVE DIAGNOSES: 1. Lumbar stenosis, spondylosis. 2. Chronic back pain 3. Nonfunctioning spinal cord stimulator PROCEDURE PERFORMED: 1. T9 partial bilateral laminectomies. 2. Explantation of nonfunctioning spinal cord stimulator lead 3. Implantation of dorsal column stimulator paddle lead placement. 3. One hour of complex programming postoperatively. STATEMENT OF MEDICAL NECESSITY: This patient is a 83-year-old male with intractable back and leg pain. The patient had previous implantation of permanent spinal cord stimulator lead and generator which is not functioning. The patient has opted for treatment of operative intervention, understanding the risks to include, damage to nerves, arteries and veins, possibility of continued pain, need for additional surgery, pulmonary embolism, heart attack, stroke, or . DESCRIPTION OF PROCEDURE: The patient was identified in the preoperative holding area. There, the patient received the preoperative IV antibotics and then transferred to the operating suite. Once in the operating suite, after general endotracheal anesthesia was established, the patient was transferred to the [place] operating table in the prone position. All bony prominences were padded accordingly. The thoracolumbar spine was prepped and draped in standard surgical fashion. Incision was made over the thoracolumbar spine. An incision was centered over the T9-10 interlaminar space, taken down to the thoracic fascia. It was then divided and subperiosteal dissection was taken down to the level of the bilateral T9-10 facet joints. Deep retractors were placed. Partial bilateral laminectomies were performed at T9. At this point the paddle lead was exposed and explanted. A new paddle lead was placed at the top of T8. It was then anchored to the fascia using standard anchors with a 0 silk suture. The previous battery pocket was reopened and the wires from the nonfunctioning stimulator were disconnected. Wires from the newly implanted stimulator lead were then passed subcutaneously with a passing device to the battery pocket and then connected to the generator battery. Both incisions were then irrigated and closed with #1 vicryl for the fascia, 2-0 vicryl for subcutaneous, and 2-0 nylon for skin. Sterile dressing was applied with 4 x 4, ABD, and tape. Sponge, instrument, and needle counts were correct at the end of the case. The patient was extubated, taken to PACU without incident. Then one hour was spent with complex programming when the patient recovered Surgeon: Angel Oscar Type of Anesthesia: General Estimated Blood Loss (mL): 10 cc Fluids Replaced: 1200 cc Grafts/Implants Used: [employer] Complications None Admit VTE Documentation VTE Present on Admission: No
--- NOTE | 2024-02-25 07:05 | PCM.PN.ORT ---
Subjective Subjective Seen and examined postop. Resting comfortably. Pain controlled. No complaints Objective Data Objective Data Vital Signs: Vital Signs Temp Pulse Resp BP Pulse Ox O2 Del Method 98.3 F 69 16 120/78 98 Room Air 02/25/24 06:31 02/25/24 06:31 02/25/24 06:31 02/25/24 06:31 02/25/24 06:31 02/25/24 06:31 Oxygen Delivery Method Room Air Weight: 154 lb 5.177 oz Body Mass Index (BMI) 24.1 Lab / Micro Data Micro: Microbiology 02/05/24 08:39 Swab (Method) Nasal Screen MRSA/MSSA - Final Physical Exam Const alert, oriented x3 and no apparent distress General Appearance: cooperative, comfortable and well kempt HEENT normocephalic and head/scalp atraumatic Eyes EOMs intact bilaterally and conjunctivae normal Neck full ROM General: normal visual inspection Chest inspection of chest normal and palpation of chest normal Resp normal respiratory effort Cardio regular rate, regular rhythm and peripheral pulses 2+ throughout GI soft to palpation, non-tender and non-distended Back/Spine Back/Spine Narrative: Dressing clean dry and intact Cervical Spine: cervical ROM normal Thoracic Spine / Upper Back: normal to inspection Lumbar Spine / Lower Back: normal to inspection Extremity normal to inspection, full ROM, normal capillary refill, no clubbing, cyanosis or edema and no calf tenderness Skin no rashes or lesions noted General Skin Exam: no breakdown Neuro oriented x3, CN's II-XII intact bilaterally, moves all extremities, no focal motor deficits, no sensory deficits noted and deep tendon reflexes 2+ bilaterally Motor Exam: strength 5/5 throughout and muscle tone normal throughout Assessment & Plan Assessment/Plan (1) Lumbar spondylosis: PLAN: Okay to admit See orders Discharge planning, likely home tomorrow
--- NOTE | 2024-02-25 07:05 | PCM.DC.SUM ---
Providers Date of Admission: 02/25/24 Primary Care Physician: Dr. Solomon Freeman MD Reason For Visit: Explantation of Defective Spinal Co Medications at Discharge Home Medications tamsulosin 0.4 mg capsule 0.4 mg PO DAILY 09/17/16 albuterol sulfate 90 mcg/actuation aerosol inhaler (Ventolin HFA) 2 puff inhalation Q6H PRN shortness of breath or wheezing 11/11/22 [id number]-dr-rbgck 300 mcg-K 60 mcg-lycop 600 mcg-lutein 300 mcg tablet (Centrum Silver Men) 1 tab PO DAILY 11/11/22 levothyroxine 112 mcg tablet 112 mcg PO DAILY 02/04/24 hydrocodone-acetaminophen 5-325mg 5mg-325mg 1 tab PO Q6H 7 days #28 tabs 02/25/24 Hospital Course Operations - (T9 laminectomy with explantation of nonfunctioning spinal cord stimulator lead, implantation of new spinal cord stimulator lead) Summary of Care Provided Minutes Spent on Discharge: 15 Hospital Course: The patient is an 83-year-old male who underwent revision of a spinal cord stimulator lead on 02/25/2024. He was subsequently admitted. The hospitalist was consulted for medical management. The patient progressed well. His pain was controlled and he was mobilizing well. No significant medical issues were reported. He was subsequently discharged home on 02/26/2024 to follow-up with Dr. Oscar in 3 weeks Physical Exam Const alert, oriented x3 and no apparent distress General Appearance: cooperative, comfortable and well kempt Neck full ROM General: normal visual inspection Resp normal respiratory effort and normal air movement Effort and Inspection: able to speak in complete sentences Cardio regular rate and peripheral pulses 2+ throughout GI soft to palpation, non-tender and non-distended Back/Spine Back/Spine Narrative: Dressings clean dry and intact. Incisions well-approximated with interrupted sutures in place Cervical Spine: cervical ROM normal Thoracic Spine / Upper Back: normal to inspection Lumbar Spine / Lower Back: normal to inspection Extremity normal to inspection, full ROM, normal capillary refill, no clubbing, cyanosis or edema and no calf tenderness Skin no rashes or lesions noted General Skin Exam: no breakdown Neuro oriented x3, CN's II-XII intact bilaterally, moves all extremities, no focal motor deficits, no sensory deficits noted and deep tendon reflexes 2+ bilaterally Motor Exam: strength 5/5 throughout and muscle tone normal throughout Weight / BMI Weight Weight: 154 lb 5.177 oz Body Mass Index (BMI) 24.1 ABG / Lab / Microbiology Data 02/26/24 07:44 02/26/24 07:44 Microbiology: Microbiology 02/05/24 08:39 Swab (Method) Nasal Screen MRSA/MSSA - Final D/C Instructions Discharge Diet: No restrictions Additional Activity Instructions: No repetitive bending twisting or lifting more than 5 pounds Call your doctor if your incision/area has: Continuous Slow Oozing, Sudden Increased Bleeding, Increased Pain/ Swelling, Increased Redness, Foul Smelling Discharge and Swelling at the incision site Call your doctor if you observe: Fever of 101 or Higher, Coldness, Increased Pain, Numbness or Tingling, Change in Color, Inability to urinate, Inability to have a bowel movement, Using more than 1 pad per hour, Shortness of breath, Dizziness, Fainting spells, Swelling in the ankles, Chest pain, Prolonged hiccupping, Increased palpitations (irregular heartbeat), Calf discomfort and Uncontrolled pain Additional Dressing/Incision Instructions: Change dressings daily with gauze and tape. Additional Instructions: 1. During your procedure, you received sedation through your IV. Please follow these instructions for the next 24 hours: Do not drive a motor vehicle, do not drink any alcoholic beverages, and do not sign any legal documents or make personal or business decisions. A responsible adult should stay with you at least 6 hours after the procedure. 2. Keep your surgical site/incision clean and the dressing dry and intact. You may sponge bathe, but no showering or sitting in a bathtub during your trial or for one week after the permanent implant. You may use an ice pack at the surgical site to reduce any swelling or discomfort. 3. Monitor the incision site for any signs or symptoms of infection. Watch for redness, excessive swelling or drainage, or continued pain at the incision site after 3 days. Contact your physician immediately for a fever, chills or a temperature of 101.5? F or greater. 4. Take your medication exactly as prescribed by your physician. Do not attempt to wean yourself off any of your medications even though your pain is improving. This process needs to be carefully monitored by your doctor. Take any antibiotics prescribed exactly as directed and until they are gone. 5. Avoid stretching, bending, pulling, twisting or any sudden movements. Do not bend or twist at the waist. Do not raise your arms above your head; however, you may brush your hair or scratch your head, but nothing higher than that. Any movements higher than that could cause your electrode wires to move from their current position. No not lie on your stomach. Do not bend at the waist to put your shoes on; you must lift your legs up to do this. 6. No lifting greater than 5 pounds. A gallon of milk weighs more than 5 pounds, so you may not lift this. Try to be careful. Any falls could dislodge the leads. 7. Do not operate a motor vehicle, equipment or a power tool while your stimulator is on. If you need to use any equipment, you must turn your stimulator off first. As a passenger in a motor vehicle, you may use your stimulator. 8. Do not have any manipulation done by a chiropractor or any other physician without first consulting with the physician who placed your spinal cord stimulator. 9. Without movement, you may note changes in the intensity of the stimulator. For example, you may notice a different stimulation when you are standing than when you are sitting or lying down. This is normal the first few weeks following the implant and will stabilize over time. 10. Please contact our office if you are even scheduled for a CT scan or an MRI. 11. Please call us if you have any questions, problems or concerns. Please Follow Up With: Angel Oscar DO When: 3 weeks Meaningful Use Info Meaningful Use Meaningful Use Diagnoses (Choose all that apply): None applicable Ischemic Stroke Statin Dosing Therapy Reference: STATIN DOSE THERAPY REFERENCE: * Patients > 75 years receive moderate or high dose statin therapy. * Patients 75 years or YOUNGER should receive HIGH intensity statin dose unless contraindicated. You will be required to document reason for non-treatment if statin daily dose does not meet guidelines. HIGH DOSE STATIN THERAPY DAILY Atorvastatin > than or = to 40 mg Rosuvastatin > than or = to 20 mg Amlodipine + Atorvastatin > than or = to 2.5/40 mg Ezetimibe + Simvastatin 10/80 mg Simvastatin 80mg Discharge Plan Admission Admit Date/Time: 02/25/24 07:07 Attending Provider: Angel Oscar Primary Care Provider: Solomon Freeman Chi Consulting Providers: Alon Song; Manisha Giraldo; Rodney Bahena; Lola Turner; Tremaine Duncan; Tremaine Sims; Ric Nioclas; Anastacio Mercado; Hansel Petty; Madison Albert; Jb Moncada; Natividad Kong; Gilberto Dsouza; Brian Hollins; Enrique Centeno; Danya Wells; Colt Kohler Instructions Additional Instructions / Restrictions: 1. During your procedure, you received sedation through your IV. Please follow these instructions for the next 24 hours: Do not drive a motor vehicle, do not drink any alcoholic beverages, and do not sign any legal documents or make personal or business decisions. A responsible adult should stay with you at least 6 hours after the procedure. 2. Keep your surgical site/incision clean and the dressing dry and intact. You may sponge bathe, but no showering or sitting in a bathtub during your trial or for one week after the permanent implant. You may use an ice pack at the surgical site to reduce any swelling or discomfort. 3. Monitor the incision site for any signs or symptoms of infection. Watch for redness, excessive swelling or drainage, or continued pain at the incision site after 3 days. Contact your physician immediately for a fever, chills or a temperature of 101.5? F or greater. 4. Take your medication exactly as prescribed by your physician. Do not attempt to wean yourself off any of your medications even though your pain is improving. This process needs to be carefully monitored by your doctor. Take any antibiotics prescribed exactly as directed and until they are gone. 5. Avoid stretching, bending, pulling, twisting or any sudden movements. Do not bend or twist at the waist. Do not raise your arms above your head; however, you may brush your hair or scratch your head, but nothing higher than that. Any movements higher than that could cause your electrode wires to move from their current position. No not lie on your stomach. Do not bend at the waist to put your shoes on; you must lift your legs up to do this. 6. No lifting greater than 5 pounds. A gallon of milk weighs more than 5 pounds, so you may not lift this. Try to be careful. Any falls could dislodge the leads. 7. Do not operate a motor vehicle, equipment or a power tool while your stimulator is on. If you need to use any equipment, you must turn your stimulator off first. As a passenger in a motor vehicle, you may use your stimulator. 8. Do not have any manipulation done by a chiropractor or any other physician without first consulting with the physician who placed your spinal cord stimulator. 9. Without movement, you may note changes in the intensity of the stimulator. For example, you may notice a different stimulation when you are standing than when you are sitting or lying down. This is normal the first few weeks following the implant and will stabilize over time. 10. Please contact our office if you are even scheduled for a CT scan or an MRI. 11. Please call us if you have any questions, problems or concerns. Discharge Orders/Prescriptions Prescriptions: New hydrocodone-acetaminophen 5-325 mg tablet 1 tab PO Q6H 7 Days Qty: 28 0RF Continued Centrum Silver Men 300-600-300 mcg tablet 1 tab PO DAILY albuterol sulfate [Ventolin HFA] 90 mcg/actuation HFA aerosol inhaler 2 puff inhalation Q6H PRN (Reason: shortness of breath or wheezing) tamsulosin 0.4 MG capsule 0.4 mg PO DAILY levothyroxine 112 mcg tablet 112 mcg PO DAILY Patient Comments: TAKE ONE TABLET BY MOUTH EVERY DAY Discontinued ibuprofen [Advil] 200 mg tablet 200 mg PO Q8H PRN Referrals / Follow Up: Angle Oscar DO [Med Staff - Active Staff] - Solomon Freeman Chi, MD [Primary Care Provider] - Disposition Disposition (needs filled in before D/C Order can be placed): Home, Self Care
--- NOTE | 2024-02-25 07:06 | PRE.ANES_ITS ---
ASA Classification* ASA Classification ASA Classification: 3 Assessment & Plan Anesthesia* Anesthesia Assessment Anesthesia Assessment: Discussed sedation and/or anesthesia options, risks, benefits, and alternatives with patient/parents/legal guardian/POA. Questions invited. The patient/parents/legal guardian/POA seems to understand and agrees to proceed with anesthesia plan. Reviewed the physical assessment, medical history, allergy history and patient home medications list prior to surgery/procedure/anesthetic and documented any changes. Performed airway and anesthesia risk assessments. Anesthesia Type Anesthesia Type: General (see written pre anesthesia record for full assessment) Anesthesia Focused Assessment* Temperature: 98.3 F Pulse Rate: 69 Blood Pressure: 120/78 Respiratory Rate: 16 Pulse Ox: 98 Airway Assessment Mouth opens: >3 cm Mallampati Score: II Focused Labs Anesthesia Preop lab: CBC WBC 7.8 K/mm3 (4.4-11.0) 02/01/24 09:50 RBC 4.65 M/mm3 (4.6-6.2) 02/01/24 09:50 Hgb 13.9 g/dL (13.0-16.5) 02/01/24 09:50 Hct 42.3 % (40-54) 02/01/24 09:50 Plt Count 199 K/mm3 (150-450) 02/01/24 09:50 CHEMISTRY Potassium 4.1 mmol/L (3.5-5.1) 02/01/24 09:50 Sodium 138 mmol/L (136-145) 02/01/24 09:50 BUN 20 mg/dL (7-18) H 02/01/24 09:50 Creatinine 0.99 mg/dL (0.70-1.30) 02/01/24 09:50 Glucose 92 mg/dL (74-106) 02/01/24 09:50 TSH 2.14 uIU/mL (0.358-3.74) 01/13/24 10:50 COAG PT 14.1 SECONDS (11.7-14.9) 02/01/24 09:50 Pre-Assessment Diagnosis/Proposed Procedure Planned Operative Procedure(s): Explantation of Defective Spinal Cord Stimulator Lead, Implantation of Spinal Cord Stimulator Le Anesthesia History Anesthesia History - oven operator automatic: Anesthesia History - oven operator automatic Hx Hospitalization No 02/04/24 08:58 Any Problems With Anesthesia No 02/04/24 08:58 Cholinesterase deficiency No 02/04/24 08:58 You/Your Family Experience No 02/04/24 08:58 fever (hyperthermia) with Relationship Recent Exposure to Contagious No 02/25/24 06:31 Disease Does patient have nerve Yes 02/04/24 08:58 stimulator Patient instructed to have device shut off --Does patient have Pacemaker No 02/25/24 06:31 or ICD? When Was Last Pacemaker Check QUESTION #4 FULL TEXT: You/Your Family Experience fever (hyperthermia) with Anesthesia Last Oral Intake Last Oral intake: Last Oral Intake NPO since 18:00 02/25/24 06:31 Meds taken in AM with sips of No 02/25/24 06:31 water? Meds patient instructed to take am of surgery PONV PONV - oven operator automatic: PONV - oven operator automatic Female No 02/04/24 08:58 HX of Motion Sickness No 02/04/24 08:58 HX of N/V After Surgery No 02/04/24 08:58 Non-Smoker Yes 02/04/24 08:58 Duration of Surgery greater No 02/04/24 08:58 than 60 minutes Number of Risk Factors 1 02/04/24 08:58 PONV Score Low Risk 02/04/24 08:58 Height & Weight Height & Weight: Anesthesia: Height & Weight Height 5 ft 7 in 02/25/24 06:31 Weight: 70 kg 02/25/24 06:31 Body Mass Index (BMI) 24.1 02/25/24 06:31 Respiratory Assessment Respiratory Assessment - oven operator automatic: Respiratory Tract Infection Hx - oven operator automatic Hx Respiratory Tract Infection No 02/04/24 08:58 STOP Sleep Apnea STOP Sleep Apnea - oven operator automatic: STOP Sleep Apnea - oven operator automatic Hx Hypertension No 02/04/24 08:58 Hx Sleep Apnea No 02/04/24 08:58 CPAP BIPAP Do you snore loudly (louder No 02/04/24 08:58 than talking or can be heard Do you often feel tired/ No 02/04/24 08:58 fatigued/ sleepy during daytime? Has anyone observed you stop No 02/04/24 08:58 breathing during sleep? STOP Results Negative 02/04/24 08:58 QUESTION #5 FULL TEXT : Do you snore loudly (louder than talking or can be heard through closed doors)? 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 Specify any problems Hx of Preganancy in last 3 N/A 02/04/24 08:58 Months Nurse Filling Out Transfusion NBUCHER 02/04/24 08:58 & Questions: Date: 02/04/24 02/04/24 08:58 Time: 09:00 02/04/24 08:58 Patient unable to answer at this time (ie. confused, unrespo /Reproduction History /Reproductive History - oven operator automatic: /Reproductive Hx- oven operator automatic Hx Now No 02/04/24 08:58 Gestational Age (in weeks): EDC: Hx Hx Para Hx Section SAB No 02/04/24 08:58 Active Medications Active Medications: Current Medications Generic Name Dose Route Start Last Admin Trade Name Freq PRN Reason Stop Dose Admin Cefazolin Sodium 2 gm/ Sodium 110 mls @ 150 mls/hr 02/25/24 07:30 Chloride IV 02/25/24 08:13 PREOP ONE Lactated Ringer's 1,000 mls @ 15 mls/hr 02/25/24 06:15 02/25/24 06:30 IV 15 mls/hr .Q48H FRANCHESCA Administration PFSH Medical History Cancer Arthritis Prostate disease Asthma Former smoker Shortness of breath on exertion Hypothyroidism Lumbar back pain DDD (degenerative disc disease), lumbar Cancer of upper lobe of left lung Stage 2 moderate COPD by GOLD classification PND (post-nasal drip) left shoulder surgery Carpal tunnel syndrome Lumbar spinal stenosis Thyroid disease COPD (chronic obstructive pulmonary disease) Adenocarcinoma of lung, stage 1 Home Medications ?Medication ?Instructions ?Recorded ?Last Taken ?Type tamsulosin 0.4 mg capsule 0.4 mg PO DAILY 09/17/16 02/24/24 History albuterol sulfate 90 mcg/actuation 2 puff inhalation Q6H PRN 11/11/22 Unknown History aerosol inhaler (Ventolin HFA) shortness of breath or wheezing hxnuybwc-pu-aozpx 300 mcg-K 60 1 tab PO DAILY 11/11/22 Unknown History mcg-lycop 600 mcg-lutein 300 mcg tablet (Centrum Silver Men) levothyroxine 112 mcg tablet 112 mcg PO DAILY 02/04/24 02/24/24 History ibuprofen 200 mg tablet (Advil) 200 mg PO Q8H PRN 02/25/24 Unknown History Allergy/AdvReac Type Severity Reaction Status Date / Time No Known Allergies Allergy Verified 02/04/24 08:56 Surgical History History of surgery on right wrist S/P insertion of spinal cord stimulator History of tonsillectomy History of surgical removal of pilonidal cyst (~1958) History of lobectomy of lung (~2014) History of shoulder surgery (~2005) History of carpal tunnel release of both wrists (~1996) S/P lobectomy of lung H/O hemorrhoidectomy Social History household members: spouse housing: house Smoking Status: Former smoker second hand exposure: No alcohol intake: current alcohol intake frequency: a few times a week substance use type: does not use caffeine: No what type of physical activity do you participate in: none do you feel safe at home: Yes Review of Systems (Anesthesia) ROS Narrative System reviewed and no additional complaints, except as documented.
[2024-02-25] MEDS: Ipratropium/Albuterol Sulfate 3 ML AMPUL.NEB INHALATION (07:21)
[2024-02-25] MEDS: Cefazolin 2 GM in 0.9% Normal Saline (100mL Bag) 100 ML IV (07:36)
--- NOTE | 2024-02-25 07:41 | CPS ---
THIS THERAPIST WAS ASKED TO GIVE PT AEROSOL RX PER FELLOW CO-WORKER WHO WAS UNAVAILABLE AT TIME RX WAS NEEDED. UPON ENTERING THE AC UNIT THE AEROSOL RX HAD BEEN STARTED PER CHASE JEAN BAPTISTE. THIS THERAPIST REMOVED RX UPON COMPLETION FOR THE NURSE.
[2024-02-25] MEDS: THROMBIN (RECOMBINANT) 20,000 UNIT VIAL 20000 UNIT TOPICAL (08:20)
[2024-02-25] MEDS: Bupivacaine 0.25% 30 ML Vial (09:22)
--- NOTE | 2024-02-25 09:48 | PCM.POST.ANE ---
Anesthesia: Postop Eval I Current Vital Signs Temperature: 96.0 F Pulse Rate: 85 Blood Pressure: 160/86 Respiratory Rate: 20 Pulse Ox: 99 Assessment Airway patent: Yes Spontaneous unlabored respirations: Yes nausea: No Vomiting: No Anesthesia Complication: No Fluid Hydration Crystalloid volume administer (ml): 1,200 Total IV fluid infused: 1,200 Progress Note Anesthesia document: Postop Eval 1 completed: Yes
--- NOTE | 2024-02-25 11:56 | PCM.PN.HOSP ---
Reason for Visit Reason for Visit: Diagnoses Spondylosis without myelopathy or radiculopathy, lumbar region (02/25/24) Encounter for other preprocedural examination (02/25/24) Subjective Subjective Patient is an 83-year-old gentleman with history of lumbar stenosis and spondylosis with a nonfunctioning spinal cord stimulator who underwent T9 partial bilateral laminectomy implantation of dorsal column stimulator paddle lead placement Objective Data Objective Data Vital Signs: Vital Signs Temp Pulse Resp BP Pulse Ox O2 Del Method O2 Flow Rate 97.8 F 80 18 128/64 H 98 Nasal Cannula 2 02/25/24 11:00 02/25/24 11:00 02/25/24 11:00 02/25/24 11:00 02/25/24 11:00 02/25/24 11:00 02/25/24 11:00 Oxygen Flow Rate (L/min) 2 Oxygen Delivery Method Nasal Cannula Weight: 70 kg Body Mass Index (BMI) 24.1 Intake & Output: Intake and Output for Last 24 Hours 02/23/24 02/24/24 02/25/24 23:59 23:59 23:59 Intake Total 110 / 110 Balance 110 / 110 Lab / Micro Data Micro: Microbiology 02/05/24 08:39 Swab (Method) Nasal Screen MRSA/MSSA - Final Physical Exam Narrative GENERAL: cooperative HEENT: Atraumatic; normocephalic EYES; Anicteric, Normal Conjunctiva NECK; supple, normal thyroid, RESPIRATORY: Diminished to auscultation CARDIOVASCULAR: Regular S1 S2, GI: soft, normoactive bowel sounds, : No Renal angle tenderness; EXTREMITIES: No edema, no clubbing, MUSCULOSKELETAL: no muscle wasting NEURO: Awake; no lateralizing signs. SKIN: No Rash PSYCH; Flat affect Assessment & Plan Assessment/Plan (1) Lumbar spondylosis: PLAN: Plan Patient is an 83-year-old gentleman with history of lumbar stenosis and spondylosis with a nonfunctioning spinal cord stimulator who underwent T9 partial bilateral laminectomy implantation of dorsal column stimulator paddle lead placement 1. Lumbar stenosis and spondylosis ? Status post T9 partial bilateral laminectomy implantation of dorsal column stimulator paddle lead placement on 02/25/[address] Lewis. Patient postoperative orders regarding pain management PT OT DVT prophylaxis deferred to primary service 2. Overlap syndrome (asthma and COPD ? Currently not in exacerbation we will continue patient bronchodilator treatment regimen 3. Hypothyroidism ? Patient is on levothyroxine home dose continued 4. BPH with lower urinary obstructive symptoms - Patient treated with tamsulosin 5. History of lung CA (non-small cell) ? Patient was treated left upper lobe resection and placed under active surveillance has since remained in remission 6. Postop hypoxia ? Possibly related to anesthesia as well as patient underlying COPD/asthma. Placed on supplemental oxygen use of incentive spirometry encouraged 7. DVT prophylaxis ? SCDs for now will defer initiation of chemoprophylaxis to primary service Time spent in the patient's overall evaluation,decision-making process, review of diagnostic data, adjustment of management, discussion with other providers, nursing nursing and ancillary staff involved in patient's care documentation, 52 minutes Advance planning; did discuss with the patient regarding advanced directives as well as CODE STATUS. Did explain the various scenarios involved ( FULL CODE, DNR CCA, DNR CCA with no intubation, and DNR CC and what each meant) patient elected to remain full code with CPR and intubation if needed. Order was placed. Time spent on discussion 18 minutes. Charges/Coding Visit Charges Inpatient E&M: 65799 Subs Hosp L3 Procedures Hospitalists Procedures: 46617 Advncd Care Plan 30 Min
--- NOTE | 2024-02-25 13:38 | POSTOPAN2_ITS ---
Anesthesia Postop Eval I Sum Postop Eval Completion status Anesthesia document: Postop Eval 1 completed: Yes Anesthesia Postop Eval I Summary Anesthesia Postop Eval I Summary: Anesthesia Postop Eval I: Assessment Summary Airway patent Yes 02/25/24 09:48 PLATFORM MATERIAL HANDLING SUPERVISOR.CSIR Spontaneous unlabored Yes 02/25/24 09:48 PLATFORM MATERIAL HANDLING SUPERVISOR.CSIR respirations Mental status nausea No 02/25/24 09:48 PLATFORM MATERIAL HANDLING SUPERVISOR.CSIR Vomiting No 02/25/24 09:48 PLATFORM MATERIAL HANDLING SUPERVISOR.CSIR Anesthesia Postop Eval I: Fluid Summary Crystalloid volume administer 1,200 02/25/24 09:48 PLATFORM MATERIAL HANDLING SUPERVISOR.CSIR (ml) Colloids volume administered ( ml) Blood Product volume administered (ml) Total IV fluid infused 1,200 02/25/24 09:48 PLATFORM MATERIAL HANDLING SUPERVISOR.CSIR Anesthesia Postop Eval I: Summary Notes Anesthesia Complication No 02/25/24 09:48 PLATFORM MATERIAL HANDLING SUPERVISOR.CSIR Anesthesia Complication Comment: Post-operative progress note Anesthesia: Postop Eval II Evaluation Mental status: Awake Pain Level: 0 nausea: No Vomiting: No
--- NOTE | 2024-02-25 13:38 | PCM.POSTANE2 ---
Anesthesia Postop Eval I Sum Postop Eval Completion status Anesthesia document: Postop Eval 1 completed: Yes Anesthesia Postop Eval I Summary Anesthesia Postop Eval I Summary: Anesthesia Postop Eval I: Assessment Summary Airway patent Yes 02/25/24 09:48 [employer]INCIP[employer].CSIR Spontaneous unlabored Yes 02/25/24 09:48 [employer] ASSISTANT [employer]INCIPAL.CSIR respirations Mental status nausea No 02/25/24 09:48 [employer] ASSIST[employer].CSIR Vomiting No 02/25/24 09:48 [employer] ASSISTANT PRINCIPAL.CSIR Anesthesia Postop Eval I: Fluid Summary Crystalloid volume administer 1,200 02/25/24 09:48 [employer]CHO[employer] ASSISTANT PRINCIPAL.CSIR (ml) Colloids volume administered ( ml) Blood Product volume administered (ml) Total IV fluid infused 1,200 02/25/24 09:48 [employer] ASSISTANT PRINCIPAL.CSIR Anesthesia Postop Eval I: Summary Notes Anesthesia Complication No 02/25/24 09:48 [employer]CHO[employer] ASSISTANT PRINCIPAL.CSIR Anesthesia Complication Comment: Post-operative progress note Anesthesia: Postop Eval II Evaluation Mental status: Awake Pain Level: 0 nausea: No Vomiting: No
--- NOTE | 2024-02-25 15:30 | SUR.PHASEII ---
darcie update on clean room 315
--- NOTE | 2024-02-25 15:31 | SUR.PHASEII ---
Phase 2: Patient remained comfortable in phase 2. denies need for pain medication. meal provided. ambulated to restroom with x 1 assist. [facility] [place] now.
[2024-02-25] MEDS: Lactated Ringers 1,000 ML 100 ML IV ×2 (16:08→21:51)
[2024-02-25] MEDS: Cefazolin 1 GM/50 ML BAG IV ×2 (16:29→23:18)
[2024-02-25] MEDS: Acetaminophen 500 MG Tablet 1000 MG PO (21:51)
[2024-02-26 01:30] VITALS: BP 140/73; PULSE 61; RESP 18; TEMP 36; O2SAT 96
[2024-02-26] MEDS: Acetaminophen 500 MG Tablet 1000 MG PO (05:40)
[2024-02-26] MEDS: Levothyroxine 112 MCG Tablet PO (05:40)
[2024-02-26 05:45] VITALS: BP 147/71; PULSE 69; RESP 18; TEMP 36.7; O2SAT 94
--- NOTE | 2024-02-26 07:58 | PN.HOSP_ITS ---
Reason for Visit Reason for Visit: Diagnoses Spondylosis without myelopathy or radiculopathy, lumbar region (02/25/24) Encounter for other preprocedural examination (02/25/24) Subjective Subjective Patient seen complains of urinary frequency and burning sensation which he attributed to presence of Astorga catheter which has since been removed Objective Data Objective Data Vital Signs: Vital Signs Temp Pulse Resp BP Pulse Ox O2 Del Method O2 Flow Rate 98.1 F 69 18 147/71 H 94 Room Air 2 02/26/24 05:45 02/26/24 05:45 02/26/24 05:45 02/26/24 05:45 02/26/24 05:45 02/26/24 05:45 02/25/24 15:09 Oxygen Flow Rate (L/min) 2 Oxygen Delivery Method Room Air Weight: 70 kg Body Mass Index (BMI) 24.1 Intake & Output: Intake and Output for Last 24 Hours 02/24/24 02/25/24 02/26/24 23:59 23:59 23:59 Intake Total 1231.67 / 1631.67 1200 / 1200 Output Total 1175 / 1175 450 / 450 Balance 56.67 / 456.67 750 / 750 Lab / Micro Data Micro: Microbiology 02/25/24 09:53 Incision/Surgical Site Gram Stain - Final 02/05/24 08:39 Swab (Method) Nasal Screen MRSA/MSSA - Final Physical Exam Narrative GENERAL: cooperative HEENT: Atraumatic; normocephalic EYES; Anicteric, Normal Conjunctiva NECK; supple, normal thyroid, RESPIRATORY: Diminished to auscultation CARDIOVASCULAR: Regular S1 S2, GI: soft, normoactive bowel sounds, : No Renal angle tenderness; EXTREMITIES: No edema, no clubbing, MUSCULOSKELETAL: no muscle wasting NEURO: Awake; no lateralizing signs. SKIN: No Rash PSYCH; Flat affect Assessment & Plan Assessment/Plan (1) Lumbar spondylosis: PLAN: Plan Patient is an 83-year-old gentleman with history of lumbar stenosis and spondylosis with a nonfunctioning spinal cord stimulator who underwent T9 partial bilateral laminectomy implantation of dorsal column stimulator paddle lead placement 1. Lumbar stenosis and spondylosis ? Status post T9 partial bilateral laminectomy implantation of dorsal column stimulator paddle lead placement on 02/25/[address] Lewis. Patient postoperative orders regarding pain management PT OT DVT prophylaxis deferred to primary service ? 02/26/2024 postoperative day 1 patient pain is tolerable 2. Overlap syndrome (asthma and COPD ? Currently not in exacerbation we will continue patient bronchodilator treatment regimen 3. Hypothyroidism ? Patient is on levothyroxine home dose continued 4. BPH with lower urinary obstructive symptoms - Patient treated with tamsulosin 5. History of lung CA (non-small cell) ? Patient was treated left upper lobe resection and placed under active surveillance has since remained in remission 6. Postop hypoxia ? Possibly related to anesthesia as well as patient underlying COPD/asthma. Placed on supplemental oxygen use of incentive spirometry encouraged 7. DVT prophylaxis ? SCDs for now will defer initiation of chemoprophylaxis to primary service Time spent in the patient's overall evaluation,decision-making process, review of diagnostic data, adjustment of management, discussion with other providers, n ursing nursing and ancillary staff involved in patient's care documentation, 36 minutes Charges/Coding Visit Charges Inpatient E&M: 60305 Subs Hosp L2
[2024-02-26] MEDS: 0.9% Saline Lock 10 ML Syringe IV (08:19)
[2024-02-26] MEDS: Tamsulosin HCl 0.4 MG Capsule PO (08:20)
[2024-02-26] MEDS: Multivitamins,Ther W-Minerals Tablet 1 TABLET PO (08:20)
[2024-02-26] MEDS: Ensure Surgery 237 ML LIQUID PO (08:22)
[2024-02-26 08:24] LABS: Absolute Lymphocyte Count 3.28 X10^3/uL (0.83-4.51); Basophil# 0.02 X10^3/uL; Basophil% 0.2 % (0-1); Eosinophil# 0.01 X10^3/uL; Eosinophils% 0.1 % (0-5); Hematocrit 37.4 % (40-54); Hemoglobin 12.6 g/dL (13.0-16.5); Lymphocyte # 3.28 X10^3/ul (0.83-4.51); Lymphocyte % 26.2 % (19-41); Mean Corp Hgb Conc 33.7 g/dL (32-36); Mean Corpuscular Hgb 30.4 pg (27.0-32.0); Mean Corpuscular Volume 90.3 fL (80-94); Mean Platelet Vol. 9.9 fl (6.2-12.0); Monocyte# 1.09 X10^3/uL; Monocyte% 8.7 % (0-10); NRBC Flagged by Analyzer 0 % (0-5); Neutrophil # 8.04 X10^3/uL (2.7-7.7); Neutrophil % 64.3 % (47-70); Platelet Count 221 K/mm3 (150-450); RBC Distribution Width CV 13.2 % (11.6-14.6); RBC Distribution Width SD 43.8 fl (35.1-43.9); Red Blood Count 4.14 M/mm3 (4.6-6.2); White Blood Count 12.5 K/mm3 (4.4-11.0)
[2024-02-26 08:31] VITALS: BP 146/100; PULSE 68; RESP 16; TEMP 36.6; O2SAT 95
[2024-02-26 09:09] LABS: Anion Gap 6 (5-15); BUN 19 mg/dL (7-18); BUN/Creat Ratio 18.8 RATIO (10-20); Calcium,Total 9.5 mg/dL (8.5-10.1); Chloride 108 mmol/L (98-107); Creatinine, Serum 1.01 mg/dL (0.70-1.30); EST Glomerular Filtration Rate 75 mL/min (>60); Est Glom Filt Rate - Afr Amer 90 mL/min (>60); Glucose 130 mg/dL (74-106); Magnesium 2.2 mg/dL (1.6-2.6); Phosphorus 2.7 mg/dL (2.5-4.9); Potassium 4.1 mmol/L (3.5-5.1); Sodium Level 138 mmol/L (136-145)
--- NOTE | 2024-02-26 10:27 | CASEMGMT ---
MARKEL GARCIA Assessment Face to Face with patient for initial transition planning/care coordination assessment. MARKEL GARCIA introduced self and role at [facility], pt voices understanding. Pt is A&Ox4 and is resting comfortably in bed and is calm. Care providers, pharmacy, and demographics verified. MARY ANNEE Strata: 1 PCP: Pete Specialists: Dayne (Ortho), Deon (Oncology) Preferred Pharmacy: [facility] Insurance: [employer] Prescription Benefit: Yes LNOK: Stephanie Thomas (W) Living Arrangements: Pt lives with his in a 2 story home with 2 steps to enter and a chair lift inside ADLs/IADLs: Ind Transportation: Self, DME: [facility], Cane. GB in shower. Denies needs HHC/SNF: Denies Hx or needs Pt?s goal: Home Plan: Home no needs. Pt was cleared by PT and denies further needs at this time. Caryn Alicea RN, CM
[2024-02-26 13:53] VITALS: BP 149/102; PULSE 66; RESP 18; TEMP 37.2; O2SAT 94
== END 2024-02-26 13:53 | disposition home or self-care (01) ==
LOC: ACINP 16:53 → SDC 16:53 → MS3 16:53
PROVIDERS: Internal Medicine; Admitting Provider Orthopaedic Surgery; PCP Family Medicine Geriatric Medicine; Referring Provider Orthopaedic Surgery; Visit Provider Orthopaedic Surgery
PROC: (CPT 63661; principal; 2024-02-25 07:15)
DX: Z45.42 Encounter for adjustment and management of neurostimulator (principal); J44.89 Other specified chronic obstructive pulmonary disease; M48.061 Spinal stenosis, lumbar region without neurogenic claudication; M47.26 Other spondylosis with radiculopathy, lumbar region; G89.29 Other chronic pain; R35.0 Frequency of micturition; E03.9 Hypothyroidism, unspecified; Z79.899 Other long term (current) drug therapy; Z79.890 Hormone replacement therapy; R91.1 Solitary pulmonary nodule; N40.1 Benign prostatic hyperplasia with lower urinary tract symptoms; M41.86 Other forms of scoliosis, lumbar region; R03.0 Elevated blood-pressure reading, without diagnosis of hypertension; N13.8 Other obstructive and reflux uropathy
CPT/HCPCS: 63685; 63655; 95972; 00300; 36415; 71046; 72100; 76000; 80048; 83735; 84100; 85025; 87070; 87075; 87081; 87205; 94640; 94668; 96361; 96365; 96366; 97110; 97116; 97162; 99221; C1713; C1778; J7120; A4216; G0378; J2405

== ENCOUNTER → 2024-04-11 | Outpatient (CLI) | payer MEDICARE, SELFPAY ==
--- NOTE | 2024-04-11 08:11 | CT_ITS ---
INDICATION: HX OF LUNG CA/LUNG NODULES EXAMINATION: CT CHEST WITH CONTRAST - CT Chest W/ Contrast Injection TECHNIQUE: Helically acquired images were obtained of the chest following IV contrast. A IV Contrast dosage and agent: COMPARISON: 12/15/2023 FINDINGS: LUNGS, PLEURA AND LARGE AIRWAYS: Moderate emphysema. Emphysema is a risk factor for bronchitic carcinoma and annual screening low-dose CT should be initiated. No noncalcified nodule or mass. Interval resolution of the previously described pleural-based nodular density in the upper left lower lobe. However, there is interval development of flat pleural thickening surrounding the upper left lower lobe Status post left upper lobectomy. THYROID: No thyroid lesions. HEART AND PERICARDIUM: Heart size is normal. No pericardial effusion. VESSELS: Thoracic aorta is not dilated. No aortic dissection. No obvious central pulmonary embolism although this study was not performed with the pulmonary embolism protocol. MEDIASTINUM AND FRANCHESCA: No mediastinal or hilar adenopathy. Esophagus is unremarkable. No hiatal hernia. UPPER ABDOMEN: No acute pathology. BONES: Mild dextroscoliosis of the thoracic lumbar spine with degenerative disc disease. Dorsal column spinal stimulator in the lower thoracic spine. CT/Chest WITH Contrast IMPRESSION: Interval resolution of pleural-based nodular density in the upper left pleural lobe with development of pleural thickening possibly from radiation therapy. No other CT evidence of residual, recurrent, or metastatic bronchogenic carcinoma. Electronically Signed: Marcelo Payne MD at 11:00 EDT ,
[2024-04-11 08:40] LABS: CREATININE FINGERSTICK < 1.0 mg/dL (0.70-1.30); EGFR FINGERSTICK > 60.0000 mL/min (>60)
== END | disposition home or self-care (01) ==
LOC: CT 08:11
PROVIDERS: PCP Family Medicine Geriatric Medicine; Referring Provider Internal Medicine Medical Oncology; Visit Provider Internal Medicine Medical Oncology
DX: R91.1 Solitary pulmonary nodule (principal); Z85.118 Personal history of other malignant neoplasm of bronchus and lung
CPT/HCPCS: 71260; Q9967

== ENCOUNTER → 2024-07-20 | Outpatient (CLI) | payer MEDICARE, SELFPAY ==
[2024-07-20 10:06] LABS: Vitamin D,25 Hydroxy 42.8 ng/mL
[2024-07-20 10:09] LABS: Absolute Neutrophil Count 4.4 X10^3/uL (2.0-7.7); Basophil# 0.05 X10^3/uL; Basophil% 0.5 % (0-1); Eosinophil# 0.11 X10^3/uL; Eosinophils% 1.2 % (0-5); Hematocrit 44.2 % (40-54); Hemoglobin 14.5 g/dL (13.0-16.5); Lymphocyte % 41.5 % (19-41); Mean Corp Hgb Conc 32.8 g/dL (32-36); Mean Corpuscular Hgb 29.7 pg (27.0-32.0); Mean Corpuscular Volume 90.4 fL (80-94); Mean Platelet Vol. 9.6 fl (6.2-12.0); Monocyte# 0.93 X10^3/uL; Monocyte% 9.9 % (0-10); NRBC Flagged by Analyzer 0 % (0-5); Neutrophil # 4.35 X10^3/uL (2.7-7.7); Neutrophil % 46.4 % (47-70); Platelet Count 172 K/mm3 (150-450); RBC Distribution Width CV 13.5 % (11.6-14.6); RBC Distribution Width SD 44.8 fl (35.1-43.9); Red Blood Count 4.89 M/mm3 (4.6-6.2); White Blood Count 9.4 K/mm3 (4.4-11.0)
[2024-07-20 10:18] LABS: ALB/GLOB Ratio 0.9 RATIO (0.9-2.4); AST(SGOT) 23 U/L (15-37); Alanine Aminotransfer ALT/SGPT 28 U/L (16-61); Albumin, Serum 3.2 g/dL (3.2-5.0); Alkaline Phosphatase 90 U/L (45-117); Anion Gap 7 (5-15); BUN 18 mg/dL (7-18); BUN/Creat Ratio 16.5 RATIO (10-20); Calcium,Total 8.7 mg/dL (8.5-10.1); Chloride 105 mmol/L (98-107); Cholesterol 178 mg/dL (200); Creatinine, Serum 1.09 mg/dL (0.70-1.30); EST Glomerular Filtration Rate 68 mL/min (>60); Est Glom Filt Rate - Afr Amer 83 mL/min (>60); Globulin 3.4 g/dL (2.2-4.2); Glucose 104 mg/dL (74-106); High Density Lipoprotein 55 mg/dL; Potassium 4.3 mmol/L (3.5-5.1); Protein, Total 6.6 g/dL (6.4-8.2); Sodium Level 137 mmol/L (136-145); Triglycerides 90 mg/dL; Very Low Density Lipoprotein 18 mg/dL (5-40)
== END | disposition home or self-care (01) ==
LOC: POLAB3 09:21
PROVIDERS: PCP Family Medicine Geriatric Medicine; Visit Provider Family Medicine Geriatric Medicine
DX: R53.83 Other fatigue (principal); E78.5 Hyperlipidemia, unspecified; E55.9 Vitamin D deficiency, unspecified
CPT/HCPCS: 36415; 80053; 80061; 82306; 84443; 85025

== ENCOUNTER → 2025-01-17 | Outpatient (CLI) | payer MEDICARE, SELFPAY ==
[2025-01-17 10:59] LABS: Hematocrit 42.7 % (40-54); Hemoglobin 14.3 g/dL (13.0-16.5); Immature Granulocytes Count 0.030 X10^3/uL (0.0-0.0); Mean Corp Hgb Conc 33.5 g/dL (32-36); Mean Corpuscular Volume 91.4 fL (80-94); Mean Platelet Vol. 9.7 fl (6.2-12.0); NRBC Flagged by Analyzer 0 % (0-5); POSITIVE MORPHOLOGY YES; Platelet Count 210 K/mm3 (150-450); RBC Distribution Width CV 13.2 % (11.6-14.6); RBC Distribution Width SD 44.6 fl (35.1-43.9); Red Blood Count 4.67 M/mm3 (4.6-6.2); White Blood Count 10.0 K/mm3 (4.4-11.0)
[2025-01-17 11:22] LABS: Differential Indicated SCAN CRITERIA MET
[2025-01-17 12:10] LABS: Cholesterol 185 mg/dL (<=200); Low Density Lipoprotein Calc. 115 mg/dL; Triglycerides 77 mg/dL; Very Low Density Lipoprotein 15 mg/dL (5-40); Vitamin D,25 Hydroxy 38.2 ng/mL (30-100); cholesterol:hdl ratio screen 3.39
[2025-01-17 12:15] LABS: AST(SGOT) 25 U/L (<=37); Alanine Aminotransfer ALT/SGPT 17 U/L (<=46); Albumin, Serum 3.9 g/dL (3.4-4.8); Alkaline Phosphatase 86 U/L (40-129); Anion Gap 13 (5-15); BUN 17 mg/dL (4-19); BUN/Creat Ratio 15.2 RATIO (10-20); Calcium,Total 9.2 mg/dL (7.6-11.0); Carbon Dioxide 21.3 mmol/L (21.0-32.0); Chloride 103 mmol/L (98-108); Globulin 2.5 g/dL (2.2-4.2); Glucose 98 mg/dL (70-99); Potassium 4.4 mmol/L (3.3-5.1)
[2025-01-17 17:51] LABS: Xtra Tube Kwok EXTRA TUBE
== END | disposition home or self-care (01) ==
LOC: POLAB3 10:05
PROVIDERS: PCP Family Medicine Geriatric Medicine; Visit Provider Family Medicine Geriatric Medicine
DX: E78.5 Hyperlipidemia, unspecified (principal); R53.83 Other fatigue; E55.9 Vitamin D deficiency, unspecified
CPT/HCPCS: 36415; 80053; 80061; 82306; 84443; 85025

== ENCOUNTER → 2025-04-10 | Outpatient (CLI) | payer MEDICARE, SELFPAY ==
--- NOTE | 2025-04-10 09:18 | RAD_ITS ---
PROCEDURE: CHEST PA AND LATERAL 04/10/2025 REASON FOR EXAM: HX OF LUNG CA TECHNIQUE: Procedure Code: RADCXR Modality: DX Procedure: CHEST PA AND LATERAL COMPARISON: None FINDINGS: There is scarring in the left lung with blunting of the left costophrenic angle and there are multiple surgical clips in the left hilar region consistent with partial left pneumonectomy. The lungs are otherwise clear. The heart size is normal. There is calcific vascular disease of the thoracic aorta. An intrathecal stimulator is noted with the tip at the midthoracic level. There is moderate dextroscoliosis of the thoracolumbar spine. RAD/Chest PA and Lateral IMPRESSION: Status post left partial pneumonectomy. Other findings as noted. Reading Location: [place] [id number]
[2025-04-10 09:26] LABS: Hematocrit 42.5 % (40-54); Hemoglobin 14.5 g/dL (13.0-16.5); Immature Granulocytes Count 0.020 X10^3/uL (0.0-0.0); Mean Corp Hgb Conc 34.1 g/dL (32-36); Mean Corpuscular Volume 90.2 fL (80-94); Mean Platelet Vol. 9.0 fl (6.2-12.0); NRBC Flagged by Analyzer 0 % (0-5); Platelet Count 203 K/mm3 (150-450); RBC Distribution Width CV 12.9 % (11.6-14.6); RBC Distribution Width SD 42.9 fl (35.1-43.9); Red Blood Count 4.71 M/mm3 (4.6-6.2); White Blood Count 8.3 K/mm3 (4.4-11.0)
[2025-04-10 10:13] LABS: AST(SGOT) 20 U/L (<=37); Alanine Aminotransfer ALT/SGPT 15 U/L (<=46); Albumin, Serum 4.0 g/dL (3.4-4.8); Alkaline Phosphatase 87 U/L (40-129); Anion Gap 8 (5-15); BUN 19 mg/dL (4-19); BUN/Creat Ratio 19.3 RATIO (10-20); Calcium,Total 9.1 mg/dL (7.6-11.0); Carbon Dioxide 25.4 mmol/L (21.0-32.0); Chloride 104 mmol/L (98-108); Globulin 2.4 g/dL (2.2-4.2); Glucose 100 mg/dL (70-99); LDH 178 U/L (87-241); Potassium 4.3 mmol/L (3.3-5.1)
== END | disposition home or self-care (01) ==
LOC: LAB 09:09
PROVIDERS: PCP Family Medicine Geriatric Medicine; Referring Provider Internal Medicine Medical Oncology; Visit Provider Internal Medicine Medical Oncology
DX: Z85.118 Personal history of other malignant neoplasm of bronchus and lung (principal)
CPT/HCPCS: 36415; 71046; 80053; 83615; 85025